=== PATIENT | female | born 1945 | race Caucasian/White ===

== ENCOUNTER 2019-02-07 12:54 | Inpatient (IN) | payer MEDICARE ==
[2019-02-07] MEDS ORDERED: SODIUM CHLORIDE 0.9% 1,000 ML IV STA (13:19)
[2019-02-07] MEDS ORDERED: ONDANSETRON 4 MG/2 ML VIAL IVP STA (13:19)
[2019-02-07] MEDS ORDERED: FAMOTIDINE 20 MG/2 ML VIAL IV STA (13:19)
--- NOTE | 2019-02-07 13:23 | ED ---
General Adult HPI - General Chief complaint: Recheck/Abnormal Lab/Rx Stated complaint: Vomiting and diarrhea Time Seen by Provider: 02/07/19 13:00 Source: patient, EMS, RN notes reviewed Mode of arrival: EMS Limitations: no limitations - History of Present Illness Initial comments: Patient is a pleasant 73-year-old female presenting to the emergency Department with complaints of vomiting and diarrhea. Onset of symptoms was close to week ago. Patient is having some more diarrhea than vomiting. Patient still feels somewhat nauseous however. No abdominal pain. Patient does have some generalized weakness and lightheadedness. Patient does feel more weak and lightheaded and somewhat short of breath with exertion. No chest pain. No leg pain or leg swelling. Patient had a low pulse ox by EMS and was placed on CPAP. Patient was seen by respiratory upon arrival and placed on BiPAP. Nursing states that patient did feel cold and had cold hands. Patient states she is no dyspnea at rest. Patient denies any dyspnea at this time. - Related Data Home Medications Medication Instructions Recorded Confirmed Cholecalciferol [Vitamin D3 (25 5,000 unit PO DAILY 02/07/19 02/07/19 Mcg = 1000 Iu)] Lisinopril-Hctz 20-25 mg 1 tab PO DAILY 02/07/19 02/07/19 [Zestoretic 20-25] Allergies Allergy/AdvReac Type Severity Reaction Status Date / Time Sulfa (Sulfonamide Allergy Rash/Hives Verified 02/07/19 12:56 Antibiotics) Review of Systems ROS Statement: Those systems with pertinent positive or pertinent negative responses have been documented in the HPI. ROS Other: All systems not noted in ROS Statement are negative. Constitutional: Denies: fever Eyes: Denies: eye pain ENT: Denies: ear pain Respiratory: Reports: as per HPI Cardiovascular: Denies: chest pain Endocrine: Reports: fatigue Gastrointestinal: Reports: nausea, vomiting, diarrhea. Denies: abdominal pain Genitourinary: Denies: dysuria Musculoskeletal: Denies: back pain Skin: Denies: rash Neurological: Denies: headache, confusion Past Medical History Past Medical History: Hypertension Additional Past Medical History / Comment(s): fungal infection feet History of Any Multi-Drug Resistant Organisms: None Reported Additional Past Surgical History / Comment(s): laparotomy d/t PID Past Anesthesia/Blood Transfusion Reactions: No Reported Reaction Past Psychological History: No Psychological Hx Reported Smoking Status: Never smoker Past Alcohol Use History: None Reported Past Drug Use History: None Reported - Past Family History Mother Family Medical History: Cancer Additional Family Medical History / Comment(s): brain stem tumor General Exam Limitations: no limitations General appearance: alert, in no apparent distress Head exam: Present: normocephalic Eye exam: Present: normal appearance, PERRL ENT exam: Present: normal oropharynx Neck exam: Present: normal inspection Respiratory exam: Present: normal lung sounds bilaterally Cardiovascular Exam: Present: regular rate, normal rhythm GI/Abdominal exam: Present: soft. Absent: tenderness Extremities exam: Present: normal inspection. Absent: pedal edema, calf tenderness Neurological exam: Present: alert Psychiatric exam: Present: normal affect, normal mood Skin exam: Present: normal color Course Vital Signs 02/07/19 02/07/19 02/07/19 12:56 13:20 13:59 Temperature 98.6 F 98.6 F Pulse Rate 92 82 Respiratory 20 20 Rate Blood Pressure 143/73 128/59 O2 Sat by Pulse 100 99 100 Oximetry EKG Findings - EKG Comments: EKG Findings:: EKG shows normal sinus rhythm at 82. TN 142. QRS 84. QT 376. QTc 439. Normal axis. Nonspecific ST-T change, consider early repolarization pericarditis or injury. Normal QRS. Medical Decision Making - Medical Decision Making Patient reevaluated and resting comfortably in bed. Pulse ox 100% on room air. Patient updated on results and plan. Case was discussed in detail with Dr. Jones, who will admit covering for Dr. ashby. - Lab Data Result diagrams: 02/07/19 13:35 02/07/19 13:35 Lab Results 02/07/19 02/07/19 02/07/19 Range/Units 13:35 13:35 13:35 WBC 10.8 H (3.8-10.6) k/uL RBC 5.50 H (3.80-5.40) m/uL Hgb 15.7 (11.4-16.0) gm/dL Hct 46.1 H (34.0-46.0) % MCV 83.9 (80.0-100.0) fL MCH 28.5 (25.0-35.0) pg MCHC 34.0 (31.0-37.0) g/dL RDW 12.5 (11.5-15.5) % Plt Count 380 (150-450) k/uL Neutrophils % 76 % Lymphocytes % 16 % Monocytes % 5 % Eosinophils % 1 % Basophils % 1 % Neutrophils # 8.3 H (1.3-7.7) k/uL Lymphocytes # 1.7 (1.0-4.8) k/uL Monocytes # 0.6 (0-1.0) k/uL Eosinophils # 0.1 (0-0.7) k/uL Basophils # 0.1 (0-0.2) k/uL PT (9.0-12.0) sec INR (<1.2) APTT (22.0-30.0) sec Sodium 138 (137-145) mmol/L Potassium 4.0 (3.5-5.1) mmol/L Chloride 100 (98-107) mmol/L Carbon Dioxide 18 L (22-30) mmol/L Anion Gap 20 mmol/L BUN 125 H* (7-17) mg/dL Creatinine 2.89 H (0.52-1.04) mg/dL Est GFR (CKD-EPI)AfAm 18 (>60 ml/min/1.73 sqM) Est GFR (CKD-EPI)NonAf 16 (>60 ml/min/1.73 sqM) Glucose 140 H (74-99) mg/dL Plasma Lactic Acid Yoel 3.0 H* (0.7-2.0) mmol/L Calcium 10.3 H (8.4-10.2) mg/dL Magnesium 3.2 H (1.6-2.3) mg/dL Total Bilirubin 0.9 (0.2-1.3) mg/dL AST 21 (14-36) U/L ALT 25 (9-52) U/L Alkaline Phosphatase 90 (38-126) U/L Creatine Kinase 33 (30-135) U/L Troponin I (0.000-0.034) ng/mL Total Protein 7.1 (6.3-8.2) g/dL Albumin 4.6 (3.5-5.0) g/dL 02/07/19 02/07/19 Range/Units 13:35 13:35 WBC (3.8-10.6) k/uL RBC (3.80-5.40) m/uL Hgb (11.4-16.0) gm/dL Hct (34.0-46.0) % MCV (80.0-100.0) fL MCH (25.0-35.0) pg MCHC (31.0-37.0) g/dL RDW (11.5-15.5) % Plt Count (150-450) k/uL Neutrophils % % Lymphocytes % % Monocytes % % Eosinophils % % Basophils % % Neutrophils # (1.3-7.7) k/uL Lymphocytes # (1.0-4.8) k/uL Monocytes # (0-1.0) k/uL Eosinophils # (0-0.7) k/uL Basophils # (0-0.2) k/uL PT 13.6 H (9.0-12.0) sec INR 1.3 H (<1.2) APTT 25.7 (22.0-30.0) sec Sodium (137-145) mmol/L Potassium (3.5-5.1) mmol/L Chloride (98-107) mmol/L Carbon Dioxide (22-30) mmol/L Anion Gap mmol/L BUN (7-17) mg/dL Creatinine (0.52-1.04) mg/dL Est GFR (CKD-EPI)AfAm (>60 ml/min/1.73 sqM) Est GFR (CKD-EPI)NonAf (>60 ml/min/1.73 sqM) Glucose (74-99) mg/dL Plasma Lactic Acid Yoel (0.7-2.0) mmol/L Calcium (8.4-10.2) mg/dL Magnesium (1.6-2.3) mg/dL Total Bilirubin (0.2-1.3) mg/dL AST (14-36) U/L ALT (9-52) U/L Alkaline Phosphatase (38-126) U/L Creatine Kinase (30-135) U/L Troponin I 0.015 (0.000-0.034) ng/mL Total Protein (6.3-8.2) g/dL Albumin (3.5-5.0) g/dL Disposition Clinical Impression: Dehydration Disposition: ADMITTED IP TO THIS HOSP Condition: Serious Is patient prescribed a controlled substance at d/c from ED?: No Referrals: Debbie Plaza MD [Primary Care Provider] - 1-2 days Decision Time: 15:21
[2019-02-07 14:12] LABS: Basophils # (A) 0.1 k/uL (0-0.2); Basophils % (A) 1 %; Eosinophils # (A) 0.1 k/uL (0-0.7); Eosinophils % (A) 1 %; HCT 46.1 % (34.0-46.0); HGB 15.7 gm/dL (11.4-16.0); Lymphocytes # (A) 1.7 k/uL (1.0-4.8); Lymphocytes % (A) 16 %; MCH 28.5 pg (25.0-35.0); MCV 83.9 fL (80.0-100.0); Mean Platelet Volume 7.3; Monocytes # (A) 0.6 k/uL (0-1.0); Monocytes % (A) 5 %; Neutrophils # (A) 8.3 k/uL (1.3-7.7); Neutrophils % (A) 76 %; Platelet Count 380 k/uL (150-450); RDW 12.5 % (11.5-15.5); WBC 10.8 k/uL (3.8-10.6)
[2019-02-07 14:16] LABS: INR 1.3 (<1.2); Partial Thromboplastin Time 25.7 sec (22.0-30.0); Prothrombin Time 13.6 sec (9.0-12.0)
--- NOTE | 2019-02-07 14:17 | XR ---
EXAMINATION TYPE: XR chest 2V DATE OF EXAM: 02/07/2019 COMPARISON: NONE HISTORY: Weakness and hypoxia. Shortness of breath. TECHNIQUE: Frontal and lateral views of the chest are obtained. FINDINGS: There is chronic parenchymal changes bilaterally without suspicious focal air space opacit y, pleural effusion, or pneumothorax seen. The cardiac silhouette size is within normal limits. Th e osseous structures are demineralized. IMPRESSION: No suspicious acute pulmonary process.
[2019-02-07 14:21] LABS: Albumin 4.6 g/dL (3.5-5.0); Calcium 10.3 mg/dL (8.4-10.2); Magnesium 3.2 mg/dL (1.6-2.3); Total Bilirubin 0.9 mg/dL (0.2-1.3); Total Protein 7.1 g/dL (6.3-8.2)
[2019-02-07] MEDS ORDERED: ONDANSETRON 4 MG/2 ML VIAL IVP PRN (15:21)
[2019-02-07] MEDS ORDERED: NALOXONE 0.4 MG/ML 1 ML VIAL IV PRN (15:21)
[2019-02-07] MEDS: SODIUM CHLORIDE 0.9% 1,000 ML IV SCH (15:51)
--- NOTE | 2019-02-07 15:52 | P.HPIM ---
History of Present Illness H&P Date: 02/07/19 Chief Complaint: dehydration, nausea vomiting and diarrhea This is a 73-year-old female patient of Dr. Plaza. Patient presented with nausea vomiting diarrhea for 1 week. Patient reports that she has been able to keep minimal fluid injuring 10 over the past week. Patient reports that he does feel more weak and lightheaded than normal. Patient reports she is concerned about the remaining that his recall she has been eating large amounts over the past few months. Patient also states she saw some bright red blood in her stool. Patient does state she has hemorrhoids is having multiple loose stools since resolved. Patient does have a past medical history of hypertension. Patient denies fevers. Patient denies any alcohol use. Patient denies any other significant medical history. Patient reports last colonoscopy was in 2015 and showed sigmoid diverticulosis with no evidence of acute diverticulitis strictures or polyps or cancer. Chest x-ray completed in ER showing no suspicious acute pulmonary process. Creatinine elevated at 2.89 and bun 125. Lactic acid 3.0. Patient's blood pressure medication currently on hold. Normal saline at 75. Amylase and lipase ordered. Stool for C. diff ordered. Stool culture ordered. Repeat labs ordered in a.m. at this time patient reports improvement with nausea vomiting and diarrhea. Patient denies chest pain or shortness of breath. Patient denies any urinary burning or frequency Review of Systems Please refer to HPI otherwise unremarkable Past Medical History Past Medical History: Hypertension Additional Past Medical History / Comment(s): fungal infection feet History of Any Multi-Drug Resistant Organisms: None Reported Additional Past Surgical History / Comment(s): laparotomy d/t PID Past Anesthesia/Blood Transfusion Reactions: No Reported Reaction Past Psychological History: No Psychological Hx Reported Smoking Status: Never smoker Past Alcohol Use History: None Reported Past Drug Use History: None Reported - Past Family History Mother Family Medical History: Cancer Additional Family Medical History / Comment(s): brain stem tumor Medications and Allergies Home Medications Medication Instructions Recorded Confirmed Type Cholecalciferol [Vitamin D3 (25 5,000 unit PO DAILY 02/07/19 02/07/19 History Mcg = 1000 Iu)] Lisinopril-Hctz 20-25 mg 1 tab PO DAILY 02/07/19 02/07/19 History [Zestoretic 20-25] Allergies Allergy/AdvReac Type Severity Reaction Status Date / Time Sulfa (Sulfonamide Allergy Rash/Hives Verified 02/07/19 12:56 Antibiotics) Physical Exam Vitals: Vital Signs Temp Pulse Resp BP Pulse Ox 02/07/19 15:19 82 18 124/74 97 02/07/19 13:59 98.6 F 82 20 128/59 100 02/07/19 13:20 99 02/07/19 12:56 98.6 F 92 20 143/73 100 Intake and Output 02/07/19 02/07/19 02/07/19 06:59 14:59 22:59 Other: Weight 53.524 kg Head normocephalic Neck supple Lungs clear to auscultation bilaterally no wheezing or crackles Heart regular rate and rhythm S1-S2, no rub or gallop Abdomen is soft nontender nondistended positive bowel sounds no hepatosplenomegaly Extremities no edema Neuro alert and orientated to 3 Results CBC & Chem 7: 02/07/19 13:35 02/07/19 13:35 Labs: Abnormal Lab Results - Last 24 Hours (Table) 02/07/19 02/07/19 02/07/19 Range/Units 13:35 13:35 13:35 WBC 10.8 H (3.8-10.6) k/uL RBC 5.50 H (3.80-5.40) m/uL Hct 46.1 H (34.0-46.0) % Neutrophils # 8.3 H (1.3-7.7) k/uL PT (9.0-12.0) sec INR (<1.2) Carbon Dioxide 18 L (22-30) mmol/L BUN 125 H* (7-17) mg/dL Creatinine 2.89 H (0.52-1.04) mg/dL Glucose 140 H (74-99) mg/dL Plasma Lactic Acid Yoel 3.0 H* (0.7-2.0) mmol/L Calcium 10.3 H (8.4-10.2) mg/dL Magnesium 3.2 H (1.6-2.3) mg/dL 02/07/19 Range/Units 13:35 WBC (3.8-10.6) k/uL RBC (3.80-5.40) m/uL Hct (34.0-46.0) % Neutrophils # (1.3-7.7) k/uL PT 13.6 H (9.0-12.0) sec INR 1.3 H (<1.2) Carbon Dioxide (22-30) mmol/L BUN (7-17) mg/dL Creatinine (0.52-1.04) mg/dL Glucose (74-99) mg/dL Plasma Lactic Acid Yoel (0.7-2.0) mmol/L Calcium (8.4-10.2) mg/dL Magnesium (1.6-2.3) mg/dL Assessment and Plan Assessment: 1. Gastroenteritis with nausea vomiting and diarrhea. Amylase and lipase ordered. Stool for C. diff ordered. Stool cultures ordered. Dr. Chávez per infectious disease has been consulted 2. Acute kidney injury secondary to dehydration. Creatinine elevated 2.89 and bun 125. Continue normal saline at 75 3. Elevated lactic acid likely secondary to dehydration. LA elevated at 3.0. She received 1 L bolus normal saline at 75. Lactic acid has been ordered per protocol 4. History of essential hypertension. Patient home medication includes lisinopril hydrochlorothiazide currently on hold due to acute kidney injury will continue to monitor DVT prophylaxis heparin. GI prophylaxis Protonix Time with Patient: Greater than 30 (Greater than 60% of the total time spent in counseling and coordination of care. I performed an examination of the patient and discussed their management with the Nurse Practitioner. I have reviewed the Nurse Practitioner's notes and agree with the documented findings and plan of care)
[2019-02-07 17:27] LABS: Appearance,Urine Clear (Clear); Bacteria,Urine Occasional /hpf; Bilirubin,Urine Negative (Negative); Blood,Urine Negative (Negative); Color,Urine Light Yellow; Glucose,Urine (UA) Negative (Negative); Hyaline Casts,Urine 1 /lpf (0-2); Ketones,Urine Negative (Negative); Leukocyte Esterase,Urine Trace (Negative); Mucus,Urine Rare /hpf; Nitrite,Urine Positive (Negative); Protein,Urine Negative (Negative); RBC,Urine 1 /hpf (0-5); Specific Gravity,Urine 1.014 (1.001-1.035); Squamous Epithelial Cell,Urine <1 /hpf (0-4); Urobilinogen,Urine <2.0 mg/dL (<2.0); WBC,Urine 8 /hpf (0-5)
[2019-02-07] MEDS: HEPARIN SODIUM,PORCINE 5,000 UNIT/ML 1 ML VIAL SQ SCH (20:36)
[2019-02-08] MEDS: SODIUM CHLORIDE 0.9% 1,000 ML IV SCH ×2 (04:37→16:08)
[2019-02-08 07:33] LABS: Albumin 3.3 g/dL (3.5-5.0); Potassium 3.4 mmol/L (3.5-5.1); Total Bilirubin 0.6 mg/dL (0.2-1.3); Total Protein 5.5 g/dL (6.3-8.2)
[2019-02-08] MEDS: PANTOPRAZOLE 40 MG/10 ML VIAL IV SCH (08:00)
[2019-02-08] MEDS: HEPARIN SODIUM,PORCINE 5,000 UNIT/ML 1 ML VIAL SQ SCH ×2 (08:00→20:10)
[2019-02-08 08:04] LABS: Basophils % (A) 1 %; Eosinophils # (A) 0.2 k/uL (0-0.7); Eosinophils % (A) 3 %; HCT 37.9 % (34.0-46.0); HGB 12.9 gm/dL (11.4-16.0); Lymphocytes # (A) 1.7 k/uL (1.0-4.8); Lymphocytes % (A) 25 %; MCH 29.1 pg (25.0-35.0); MCV 85.7 fL (80.0-100.0); Mean Platelet Volume 6.6; Monocytes # (A) 0.4 k/uL (0-1.0); Monocytes % (A) 6 %; Neutrophils # (A) 4.4 k/uL (1.3-7.7); Neutrophils % (A) 64 %; Platelet Count 261 k/uL (150-450); RBC 4.42 m/uL (3.80-5.40); RDW 12.6 % (11.5-15.5); WBC 6.9 k/uL (3.8-10.6)
[2019-02-08] MEDS ORDERED: Potassium Replacement Protocol 1 EACH MISC MISCELLANE PRN (08:31)
--- NOTE | 2019-02-08 08:36 | CDI ---
Documentation Clarification Form Date: 02/08/2019 8:18:00 AM From: Neyda Cowan RN CCDS Admit Date: 02/07/2019 3:21:00 PM Patient Name: Phong Artis Visit Number: [id number] Discharge Date: ATTENTION: The Clinical Documentation Specialists (CDI) and [facility] Coding Staff appreciate your assistance in clarifying documentation. Please respond to the clarification below the line at the bottom and electronically sign. The CDI & [facility] Coding staff will review the response and follow-up if needed. Please note: Queries are made part of the Legal Health Record. If you have any questions, please contact the author of this message via ITS. Dr. Richard Jones The Elevated lactic acid likely secondary to dehydration Documented in the H & P Past medical history/Risk Factors: 73-year-old female presents to the ED for diarrhea, vomiting, weakness, light headedness and short of breath with exertion. Clinical Indicators: Lactic acid 02/07 - 3.0; 02/07 - 2.1; 02/07 1.0 Vital signs: 143/73 92 98.6 20 100% Bipap Treatment:02/07 0.9ns 1 L bolus then at 75 cc/hr; Monitoring of Lactic acid In your professional opinion, can you please clarify if the above clinical indicators and treatment signify any of the following? Lactic Acidosis Metabolic Acidosis Unable to determine Other, please specify (Last Revision: December 2016) Lactic acidosis MTDD
[2019-02-08] MEDS: POTASSIUM CHLORIDE ER 20 MEQ TAB.ER PO SCH ×2 (08:59→10:11)
--- NOTE | 2019-02-08 11:13 | P.PN ---
Subjective Progress Note Date: 02/08/19 This is a 73-year-old female patient of Dr. Plaza. Patient presented with nausea vomiting diarrhea for 1 week. Patient reports that she has been able to keep minimal fluid injuring 10 over the past week. Patient reports that he does feel more weak and lightheaded than normal. Patient reports she is concerned about the remaining that his recall she has been eating large amounts over the past few months. Patient also states she saw some bright red blood in her stool. Patient does state she has hemorrhoids is having multiple loose stools since resolved. Patient does have a past medical history of hypertension. Patient denies fevers. Patient denies any alcohol use. Patient denies any other significant medical history. Patient reports last colonoscopy was in 2015 and showed sigmoid diverticulosis with no evidence of acute diverticulitis strictures or polyps or cancer. Chest x-ray completed in ER showing no suspicious acute pulmonary process. Creatinine elevated at 2.89 and bun 125. Lactic acid 3.0. Patient's blood pressure medication currently on hold. Normal saline at 75. Amylase and lipase ordered. Stool for C. diff ordered. Stool culture ordered. Repeat labs ordered in a.m. at this time patient reports improvement with nausea vomiting and diarrhea. Patient denies chest pain or shortness of breath. Patient denies any urinary burning or frequency On 02/08/2018 patient is resting comfortably in her bed. Patient is in no acute distress. Patient states that she feels much better today. Patient has been afebrile overnight. Patient has had no nausea, vomiting, diarrhea. Last bowel movement was yesterday patient reports a very small amount. Lactate 0.6. WBC 6.9 down from 10.8. UA completed possibly suspicious for UTI, though patient is denying any symptoms. Will send urine culture. She was tolerating regular diet. Amylase 121, lipase 772, potentially due to dehydration. Will repeat. Creatinine on admission 2.89, today 2.03. She denies any chest pain or shortness of breath. Patient denies any urinary burning or frequency. Objective - Vital Signs Vital signs: Vital Signs Temp 98.2 F 02/08/19 06:12 Pulse 68 02/08/19 06:12 Resp 18 02/08/19 06:12 BP 132/75 02/08/19 06:12 Pulse Ox 100 02/08/19 06:12 Intake & Output 02/07/19 02/08/19 02/08/19 18:59 06:59 18:59 Intake Total 200 1080 200 Balance 200 1080 200 Weight 53.524 kg Intake: Intake, IV Titration 600 Amount Sodium Chloride 0.9% 1, 600 000 ml @ 75 mls/hr IV . [id number] [id number] Rx#:[id number] Oral 200 480 200 Other: # Voids 3 - Exam Head normocephalic Neck supple Lungs clear to auscultation bilaterally no wheezing or crackles Heart regular rate and rhythm S1-S2, no rub or gallop Abdomen is soft nontender nondistended positive bowel sounds no hepatosplenomegaly Extremities no edema Neuro alert and orientated to 3 - Labs CBC & Chem 7: 02/08/19 06:56 02/08/19 06:56 Labs: Abnormal Lab Results - Last 24 Hours (Table) 02/07/19 02/07/19 02/07/19 Range/Units 13:35 13:35 13:35 WBC 10.8 H (3.8-10.6) k/uL RBC 5.50 H (3.80-5.40) m/uL Hct 46.1 H (34.0-46.0) % Neutrophils # 8.3 H (1.3-7.7) k/uL PT (9.0-12.0) sec INR (<1.2) Potassium (3.5-5.1) mmol/L Chloride (98-107) mmol/L Carbon Dioxide 18 L (22-30) mmol/L BUN 125 H* (7-17) mg/dL Creatinine 2.89 H (0.52-1.04) mg/dL Glucose 140 H (74-99) mg/dL Plasma Lactic Acid Yoel 3.0 H* (0.7-2.0) mmol/L Calcium 10.3 H (8.4-10.2) mg/dL Magnesium 3.2 H (1.6-2.3) mg/dL Total Protein (6.3-8.2) g/dL Albumin (3.5-5.0) g/dL Amylase (30-110) U/L Lipase (23-300) U/L Urine Nitrite (Negative) Ur Leukocyte Esterase (Negative) Urine WBC (0-5) /hpf Urine Bacteria (None) /hpf Urine Mucus (None) /hpf 02/07/19 02/07/19 02/07/19 Range/Units 13:35 13:35 17:00 WBC (3.8-10.6) k/uL RBC (3.80-5.40) m/uL Hct (34.0-46.0) % Neutrophils # (1.3-7.7) k/uL PT 13.6 H (9.0-12.0) sec INR 1.3 H (<1.2) Potassium (3.5-5.1) mmol/L Chloride (98-107) mmol/L Carbon Dioxide (22-30) mmol/L BUN (7-17) mg/dL Creatinine (0.52-1.04) mg/dL Glucose (74-99) mg/dL Plasma Lactic Acid Yoel (0.7-2.0) mmol/L Calcium (8.4-10.2) mg/dL Magnesium (1.6-2.3) mg/dL Total Protein (6.3-8.2) g/dL Albumin (3.5-5.0) g/dL Amylase (30-110) U/L Lipase 772 H (23-300) U/L Urine Nitrite Positive H (Negative) Ur Leukocyte Esterase Trace H (Negative) Urine WBC 8 H (0-5) /hpf Urine Bacteria Occasional H (None) /hpf Urine Mucus Rare H (None) /hpf 02/07/19 02/08/19 02/08/19 Range/Units 18:14 06:56 06:56 WBC (3.8-10.6) k/uL RBC (3.80-5.40) m/uL Hct (34.0-46.0) % Neutrophils # (1.3-7.7) k/uL PT (9.0-12.0) sec INR (<1.2) Potassium 3.4 L (3.5-5.1) mmol/L Chloride 109 H (98-107) mmol/L Carbon Dioxide (22-30) mmol/L BUN 85 H (7-17) mg/dL Creatinine 2.03 H (0.52-1.04) mg/dL Glucose 101 H (74-99) mg/dL Plasma Lactic Acid Yoel 2.1 H* (0.7-2.0) mmol/L Calcium (8.4-10.2) mg/dL Magnesium (1.6-2.3) mg/dL Total Protein 5.5 L (6.3-8.2) g/dL Albumin 3.3 L (3.5-5.0) g/dL Amylase 121 H (30-110) U/L Lipase (23-300) U/L Urine Nitrite (Negative) Ur Leukocyte Esterase (Negative) Urine WBC (0-5) /hpf Urine Bacteria (None) /hpf Urine Mucus (None) /hpf 02/08/19 Range/Units 06:56 WBC (3.8-10.6) k/uL RBC (3.80-5.40) m/uL Hct (34.0-46.0) % Neutrophils # (1.3-7.7) k/uL PT (9.0-12.0) sec INR (<1.2) Potassium (3.5-5.1) mmol/L Chloride (98-107) mmol/L Carbon Dioxide (22-30) mmol/L BUN (7-17) mg/dL Creatinine (0.52-1.04) mg/dL Glucose (74-99) mg/dL Plasma Lactic Acid Yoel 0.6 L (0.7-2.0) mmol/L Calcium (8.4-10.2) mg/dL Magnesium (1.6-2.3) mg/dL Total Protein (6.3-8.2) g/dL Albumin (3.5-5.0) g/dL Amylase (30-110) U/L Lipase (23-300) U/L Urine Nitrite (Negative) Ur Leukocyte Esterase (Negative) Urine WBC (0-5) /hpf Urine Bacteria (None) /hpf Urine Mucus (None) /hpf Assessment and Plan Assessment: 1. Gastroenteritis with nausea vomiting and diarrhea. Amylase and lipase ordered. Stool for C. diff ordered. Stool cultures ordered. Dr. Chávez per infectious disease has been consulted 2. Acute kidney injury secondary to dehydration. Creatinine elevated on admission 2.89 and bun 125. Today Creatinine 2.03, BUN 85. Continue normal saline at 75 3. Elevated lactic acid likely secondary to dehydration. LA elevated at 3.0. She received 1 L bolus normal saline at 75. Lactic acid has been ordered per protocol. Lactate 0.6, resolved. 4. History of essential hypertension. Patient home medication includes lisinopril hydrochlorothiazide currently on hold due to acute kidney injury will continue to monitor. 5. Elevated amylase and lipase. Amylase 121, lipase 772. Likely secondary to dehydration, will repeat labs. 6. Hypokalemia. Potassium 3.4, patient is on replacement protocol will replace and recheck lab. DVT prophylaxis heparin. GI prophylaxis Protonix & pepcid. I performed an examination of the patient and discussed their management with the Nurse Practitioner. I have reviewed the Nurse Practitioner's notes and agree with the documented findings and plan of care Time with Patient: Greater than 30
--- NOTE | 2019-02-08 22:29 | P.CONS ---
History of Present Illness - Reason for Consult Consult date: 02/08/19 Gastroenteritis Requesting physician: Richard Jones - Chief Complaint Vomiting and diarrhea 1 week - History of Present Illness Patient is a 73-year-old female who was brought into the ER by the EMS for the patient complaining of generalized weakness no energy and having nausea vomiting and diarrhea for the last 1 week patient initial symptoms started with loose stools the patient did have multiple loose stools per day and started having the vomiting was unable to keep anything down. Denies having hematemesis or abdominal pain and no fever patient did not recall if she has been exposed to an antibiotic in the recent past or anybody is sick at home patient tried some home remedies without any improvement EMS was called and the patient was brought in to [facility] ER patient on admission Hospital has been afebrile her white count has been normal she was noticed to have it evaluated BUN Of 125 with a creatinine 2.89 patient has been started on IV fluid stool studies has been requested unfortunately not collected yet infections was consulted for further recommendation regarding need for antibiotic therapy Review of Systems Positive point has been mentioned in the HPI rest of the systems are negative Past Medical History Past Medical History: Hypertension Additional Past Medical History / Comment(s): fungal infection feet 2017 History of Any Multi-Drug Resistant Organisms: None Reported Additional Past Surgical History / Comment(s): laparotomy d/t PID 1990 Past Anesthesia/Blood Transfusion Reactions: No Reported Reaction Past Psychological History: No Psychological Hx Reported Smoking Status: Never smoker Past Alcohol Use History: None Reported Past Drug Use History: None Reported - Past Family History Mother Family Medical History: Cancer Additional Family Medical History / Comment(s): brain stem tumor Medications and Allergies Home Medications Medication Instructions Recorded Confirmed Type Cholecalciferol [Vitamin D3 (25 5,000 unit PO DAILY 02/07/19 02/07/19 History Mcg = 1000 Iu)] Lisinopril-Hctz 20-25 mg 1 tab PO DAILY 02/07/19 02/07/19 History [Zestoretic 20-25] Allergies Allergy/AdvReac Type Severity Reaction Status Date / Time Sulfa (Sulfonamide Allergy Rash/Hives Verified 02/07/19 12:56 Antibiotics) Physical Exam Vitals: Vital Signs Temp Pulse Pulse Resp BP BP Pulse Ox 02/08/19 06:12 98.2 F 68 18 132/75 100 02/08/19 01:40 98.4 F 91 148/70 97 02/07/19 23:32 18 02/07/19 19:15 98.3 F 88 17 130/69 98 02/07/19 17:12 97.9 F 88 14 126/67 97 02/07/19 16:40 98.8 F 99 18 127/52 98 02/07/19 15:19 82 18 124/74 97 02/07/19 13:59 98.6 F 82 20 128/59 100 02/07/19 13:20 99 02/07/19 12:56 98.6 F 92 20 143/73 100 Intake and Output 02/07/19 02/08/19 02/08/19 22:59 06:59 14:59 Intake Total 200 1080 200 Balance 200 1080 200 Intake: Intake, IV Titration 600 Amount Sodium Chloride 0.9% 1, 600 000 ml @ 75 mls/hr IV . [id number] BIJAL Rx#:[id number] Oral 200 480 200 Other: # Voids 1 3 Weight 53.524 kg GENERAL DESCRIPTION: An elderly female lying in bed, no distress. No tachypnea or accessory muscle of respiration use. HEENT: Shows Pallor , no scleral icterus. Oral mucous membrane is dry. No pharyngeal erythema or thrush NECK: Trachea central, no thyromegaly. LUNGS: Unlabored breathing. Clear to auscultation anteriorly. No wheeze or crackle. HEART: S1, S2, regular rate and rhythm. No loud murmur ABDOMEN: Soft, no tenderness , guarding or rigidity, no organomegaly EXTREMITIES: No edema of feet. SKIN: No rash, no masses palpable. NEUROLOGICAL: The patient is awake, alert, oriented x3, mood and affect normal. Results CBC & Chem 7: 02/08/19 06:56 02/08/19 06:56 Labs: Abnormal Lab Results - Last 24 Hours (Table) 02/07/19 02/07/19 02/07/19 Range/Units 13:35 13:35 13:35 WBC 10.8 H (3.8-10.6) k/uL RBC 5.50 H (3.80-5.40) m/uL Hct 46.1 H (34.0-46.0) % Neutrophils # 8.3 H (1.3-7.7) k/uL PT (9.0-12.0) sec INR (<1.2) Potassium (3.5-5.1) mmol/L Chloride (98-107) mmol/L Carbon Dioxide 18 L (22-30) mmol/L BUN 125 H* (7-17) mg/dL Creatinine 2.89 H (0.52-1.04) mg/dL Glucose 140 H (74-99) mg/dL Plasma Lactic Acid Yoel 3.0 H* (0.7-2.0) mmol/L Calcium 10.3 H (8.4-10.2) mg/dL Magnesium 3.2 H (1.6-2.3) mg/dL Total Protein (6.3-8.2) g/dL Albumin (3.5-5.0) g/dL Amylase (30-110) U/L Lipase (23-300) U/L Urine Nitrite (Negative) Ur Leukocyte Esterase (Negative) Urine WBC (0-5) /hpf Urine Bacteria (None) /hpf Urine Mucus (None) /hpf 02/07/19 02/07/19 02/07/19 Range/Units 13:35 13:35 17:00 WBC (3.8-10.6) k/uL RBC (3.80-5.40) m/uL Hct (34.0-46.0) % Neutrophils # (1.3-7.7) k/uL PT 13.6 H (9.0-12.0) sec INR 1.3 H (<1.2) Potassium (3.5-5.1) mmol/L Chloride (98-107) mmol/L Carbon Dioxide (22-30) mmol/L BUN (7-17) mg/dL Creatinine (0.52-1.04) mg/dL Glucose (74-99) mg/dL Plasma Lactic Acid Yoel (0.7-2.0) mmol/L Calcium (8.4-10.2) mg/dL Magnesium (1.6-2.3) mg/dL Total Protein (6.3-8.2) g/dL Albumin (3.5-5.0) g/dL Amylase (30-110) U/L Lipase 772 H (23-300) U/L Urine Nitrite Positive H (Negative) Ur Leukocyte Esterase Trace H (Negative) Urine WBC 8 H (0-5) /hpf Urine Bacteria Occasional H (None) /hpf Urine Mucus Rare H (None) /hpf 02/07/19 02/08/19 02/08/19 Range/Units 18:14 06:56 06:56 WBC (3.8-10.6) k/uL RBC (3.80-5.40) m/uL Hct (34.0-46.0) % Neutrophils # (1.3-7.7) k/uL PT (9.0-12.0) sec INR (<1.2) Potassium 3.4 L (3.5-5.1) mmol/L Chloride 109 H (98-107) mmol/L Carbon Dioxide (22-30) mmol/L BUN 85 H (7-17) mg/dL Creatinine 2.03 H (0.52-1.04) mg/dL Glucose 101 H (74-99) mg/dL Plasma Lactic Acid Yoel 2.1 H* (0.7-2.0) mmol/L Calcium (8.4-10.2) mg/dL Magnesium (1.6-2.3) mg/dL Total Protein 5.5 L (6.3-8.2) g/dL Albumin 3.3 L (3.5-5.0) g/dL Amylase 121 H (30-110) U/L Lipase (23-300) U/L Urine Nitrite (Negative) Ur Leukocyte Esterase (Negative) Urine WBC (0-5) /hpf Urine Bacteria (None) /hpf Urine Mucus (None) /hpf 02/08/19 Range/Units 06:56 WBC (3.8-10.6) k/uL RBC (3.80-5.40) m/uL Hct (34.0-46.0) % Neutrophils # (1.3-7.7) k/uL PT (9.0-12.0) sec INR (<1.2) Potassium (3.5-5.1) mmol/L Chloride (98-107) mmol/L Carbon Dioxide (22-30) mmol/L BUN (7-17) mg/dL Creatinine (0.52-1.04) mg/dL Glucose (74-99) mg/dL Plasma Lactic Acid Yoel 0.6 L (0.7-2.0) mmol/L Calcium (8.4-10.2) mg/dL Magnesium (1.6-2.3) mg/dL Total Protein (6.3-8.2) g/dL Albumin (3.5-5.0) g/dL Amylase (30-110) U/L Lipase (23-300) U/L Urine Nitrite (Negative) Ur Leukocyte Esterase (Negative) Urine WBC (0-5) /hpf Urine Bacteria (None) /hpf Urine Mucus (None) /hpf Assessment and Plan Assessment: 1-patient presented to the hospital with acute vomiting and diarrhea has been going on for almost a week with associated dehydration and this patient currentl y with no fever or elevated white count question of viral etiology clinical suspicion for underlying bacterial infection or C. diff colitis in this patient who has not been exposed to any antibiotics in the recent past (1) Gastroenteritis Current Visit: Yes Status: Acute Code(s): K52.9 - NONINFECTIVE GASTRO ENTERITIS AND COLITIS, UNSPECIFIED SNOMED Code(s): 36683748 Plan: 1-we will check a stool for C. diff and stool cultures 2-we'll add Questran for symptomatic relief 3-hold on any systemic antibiotic therapy We will follow on clinical condition and cultures to further adjust medication if needed Thank you for this consultation will follow this patient with you
[2019-02-09 08:00] LABS: Basophils # (A) 0.1 k/uL (0-0.2); Basophils % (A) 1 %; Eosinophils # (A) 0.2 k/uL (0-0.7); Eosinophils % (A) 2 %; HCT 35.1 % (34.0-46.0); HGB 11.7 gm/dL (11.4-16.0); Lymphocytes # (A) 1.8 k/uL (1.0-4.8); Lymphocytes % (A) 24 %; MCH 28.4 pg (25.0-35.0); MCHC 33.4 g/dL (31.0-37.0); Mean Platelet Volume 7.3; Monocytes # (A) 0.5 k/uL (0-1.0); Monocytes % (A) 7 %; Neutrophils % (A) 65 %; Platelet Count 232 k/uL (150-450); RBC 4.12 m/uL (3.80-5.40); RDW 12.6 % (11.5-15.5); WBC 7.6 k/uL (3.8-10.6)
--- NOTE | 2019-02-09 08:16 | US ---
EXAMINATION TYPE: US abdomen complete DATE OF EXAM: 02/09/2019 COMPARISON: NONE CLINICAL HISTORY: Elevated amylase, lipase. N/V. Difficult exam due to overlying bowel gas EXAM MEASUREMENTS: Liver Length: 11.9 cm Gallbladder Wall: 0.2 cm CBD: 0.4 cm Spleen: 8.6 cm Right Kidney: 9.2 x 4.3 x 4.1 cm Left Kidney: 9.8 x 3.7 x 3.9 cm Pancreas: Body and tail obscured by bowel gas Liver: There is increased echogenicity of the hepatic parenchyma with diminished visualization of th e portal triads most commonly relating to hepatic steatosis and limiting evaluation for underlying he patic masses. Gallbladder: wnl Evidence for sonographic Melendez's sign: No CBD: wnl as visualized Spleen: wnl Right Kidney: No hydronephrosis or masses seen Left Kidney: No hydronephrosis or masses seen Upper IVC: wnl Abd Aorta: Limited due to bowel gas. Atherosclerotic changes visualized The liver is heterogeneous. The intrahepatic portion of the IVC and proximal abdominal aorta are wit hin normal limits. There is no evidence of cholelithiasis. Common bile duct is unremarkable. The v isualized portions of the pancreas are homogenous. The spleen is unremarkable. Kidneys are symmetri c and free of hydronephrosis. No renal lesions are seen. IMPRESSION: 1. Sonographic findings most commonly related to hepatic steatosis. Correlate with liver function jazz ts. 2. Pancreas is only partially visualized in this patient with elevated amylase and lipase. CT abdomen w con could assess for necrotizing pancreatitis or sequela of acute pancreatitis. 3. Limited visualization of the atherosclerotic abdominal aorta.
[2019-02-09 08:17] LABS: Albumin 3.2 g/dL (3.5-5.0); Calcium 9.2 mg/dL (8.4-10.2); Potassium 3.8 mmol/L (3.5-5.1); Total Bilirubin 0.5 mg/dL (0.2-1.3); Total Protein 5.4 g/dL (6.3-8.2)
[2019-02-09] MEDS: SODIUM CHLORIDE 0.9% 1,000 ML IV SCH ×2 (08:47→21:33)
[2019-02-09] MEDS: HEPARIN SODIUM,PORCINE 5,000 UNIT/ML 1 ML VIAL SQ SCH (08:47)
[2019-02-09] MEDS: PANTOPRAZOLE 40 MG/10 ML VIAL IV SCH (08:48)
[2019-02-09] MEDS: CHOLESTYRAMINE (WITH SUGAR) 4 GM PACKET PO SCH ×2 (08:48→17:05)
--- NOTE | 2019-02-09 10:57 | P.DS ---
Providers Date of admission: 02/07/19 15:21 Expected date of discharge: 02/09/19 Attending physician: Richard Jones Consults: 02/07/19 15:47 Consult Physician Routine Consulting Provider: Rodger Chávez Consult Reason/Comments: Gastroenteritis Do you want consulting provider notified?: Yes Primary care physician: Debbie Plaza [facility] Course: Hospital course 1. Gastroenteritis with nausea vomiting and diarrhea. Amylase and lipase ordered. Stool for C. diff ordered. Stool cultures ordered. Stool sample unable to be obtained, sample produced was too small and patient has not had another BM. Dr. Chávez infectious disease has been consulted. Per ID, will hold any systemic antibiotic therapy. Question was recommended for symptomatic relief however patient was unable to tolerate. 2. Acute kidney injury secondary to dehydration. Creatinine elevated on admission 2.89 and bun 125. Today Creatinine 1.44 and BUN 41. Will order repeat CMP in 2 days. 3. Elevated lactic acid likely secondary to dehydration. LA elevated at 3.0. She received 1 L bolus normal saline at 75. Lactic acid has been ordered per protocol. Lactate 0.6, resolved. 4. History of essential hypertension. Patient home medication includes lisinopril hydrochlorothiazide currently on hold due to acute kidney injury will continue to monitor. Resume upon discharge 5. Elevated amylase and lipase. Amylase 121, lipase 772. Likely secondary to dehydration, will repeat labs. Repeat amylase was 93 and lipase was 393. Abdominal ultrasound was completed, findings most commonly related to hepatic steatosis. Pancreas is only partially visualized, would need a CT with contrast to assess for further pancreatitis Amylase and lipase are trending down, recommend close follow-up outpatient. 6. Hypokalemia. Potassium 3.4, patient is on replacement protocol. Acid 3.8 today, resolved. Discharge Summary This is a 73-year-old female patient of Dr. Plaza. Patient presented with nausea vomiting diarrhea for 1 week. Patient reports that she has been able to keep minimal fluid injuring 10 over the past week. Patient reports that he does feel more weak and lightheaded than normal. Patient reports she is concerned about the remaining that his recall she has been eating large amounts over the past few months. Patient also states she saw some bright red blood in her stool. Patient does state she has hemorrhoids is having multiple loose stools since resolved. Patient does have a past medical history of hypertension. Patient denies fevers. Patient denies any alcohol use. Patient denies any other significant medical history. Patient reports last colonoscopy was in 2016 and showed sigmoid diverticulosis with no evidence of acute diverticulitis strictures or polyps or cancer. Chest x-ray completed in ER showing no suspicious acute pulmonary process. Creatinine elevated at 2.89 and bun 125. Lactic acid 3.0. Patient's blood pressure medication currently on hold. Normal saline at 75. Amylase and lipase ordered. Stool for C. diff ordered. Stool culture ordered. Repeat labs ordered in a.m. at this time patient reports improvement with nausea vomiting and diarrhea. Patient denies chest pain or shortness of breath. Patient denies any urinary burning or frequency On 02/08/2019 patient is resting comfortably in her bed. Patient is in no acute distress. Patient states that she feels much better today. Patient has been afebrile overnight. Patient has had no nausea, vomiting, diarrhea. Last bowel movement was yesterday patient reports a very small amount. Lactate 0.6. WBC 7.6 down from 10.8. UA completed possibly suspicious for UTI, though patient is denying any symptoms. Will send urine culture. She was tolerating regular diet. Amylase 121, lipase 772, potentially due to dehydration. Will repeat. Creatinine on admission 2.89, today 2.03. On 02/09/2019 patient states that she is very uncomfortable in the bed and she is ready to go home. Overall she feels much better. Patient has had no nausea vomiting or diarrhea. Per ID,Questran was ordered for symptomatic relief however patient was unable to tolerate. She is tolerating a regular diet. Last bowel movement was yesterday. She denies any chest pain or shortness of breath. Patient denies any urinary burning or frequency. Home blood pressure medications. Patient educated to increase hydration recommending close follow- up outpatient in regards amylase and lipase levels. CMP in 2 days. I performed an examination of the patient and discussed their management with the Nurse Practitioner. I have reviewed the Nurse Practitioner's notes and agree with the documented findings and plan of care Patient Condition at Discharge: Stable Plan - Discharge Summary Discharge Rx Participant: Yes New Discharge Prescriptions: No Action Lisinopril-Hctz 20-25 mg [Zestoretic 20-25] 1 tab PO DAILY Cholecalciferol [Vitamin D3 (25 Mcg = 1000 Iu)] 5,000 unit PO DAILY Discharge Medication List Cholecalciferol [Vitamin D3 (25 Mcg = 1000 Iu)] 5,000 unit PO DAILY 02/07/19 [History] Lisinopril-Hctz 20-25 mg [Zestoretic 20-25] 1 tab PO DAILY 02/07/19 [History] Follow up Appointment(s)/Referral(s): Debbie Plaza MD [Primary Care Provider] - 1-2 days
--- NOTE | 2019-02-09 16:48 | PN ---
PROGRESS NOTE DATE OF SERVICE: 02/09/2019 REASON FOR FOLLOWUP: Acute gastroenteritis, possibly viral. INTERVAL HISTORY: The patient is currently afebrile. She is complaining of some nausea, but it improved after she was given an injection by the RN. The patient denies having any abdominal pain. The patient denies having any diarrhea; rather, she did have a soft bowel movement. No chest pain, shortness of breath or cough. PHYSICAL EXAMINATION: On examination, blood pressure is 169/86, pulse 86, temperature 98.1. She is 99% on room air. General description is an elderly female lying in bed in no distress. RESPIRATORY SYSTEM: Unlabored breathing. Clear to auscultation anteriorly. HEART: S1, S2. Regular rate and rhythm. ABDOMEN: Soft. No tenderness. LABORATORY DATA: Hemoglobin is 11.7. White count is 7.6. BUN of 41. Creatinine is 1.44. DIAGNOSTIC IMPRESSION AND PLAN: Patient admitted to hospital with acute vomiting, diarrhea and dehydration in this patient with possible viral etiology. She was unable to provide any stool samples. We will continue the Questran as needed and monitor clinical course closely. MMODL / IJN: [id number] / MTDD
[2019-02-09] MEDS ORDERED: MELATONIN 5 MG TABLET PO SCH (21:00)
--- NOTE | 2019-02-09 23:06 | CONS ---
CONSULTATION DATE OF DICTATION: February 09, 2019. REQUESTING PHYSICIAN: Dr. Jones. REASON FOR CONSULTATION: Nausea, vomiting, diarrhea and rectal bleeding. HISTORY OF PRESENT ILLNESS: The patient is a 73-year-old pleasant white female who came into the emergency room 2 days ago complaining of nausea, vomiting, and diarrhea for the last 1 week duration. In fact, she has been having intermittent symptoms for the last 2-3 weeks, but she has consistent nausea, vomiting, and diarrhea for the last 1 week. She was having bowel movements anywhere from 7-8 day which are loose to watery in consistency with no blood or mucus in the stool. She was admitted to the hospital 3 days ago and stool studies were requested but was not done. In the meantime, Dr. Chávez was consulted. The patient was started on antimotility agents as well as Questran and her symptoms are gradually improving. This afternoon, she stated that she had 3 episodes of loose stools with a small streaks of blood and hence we are consulted for further evaluation. The patient denies any abdominal pain. The nausea, vomiting has improved. She did have elevated BUN and creatinine, which is improving with IV fluid resuscitation. She never had these symptoms in the past. She recalls having a colonoscopy [address] Farnsworth that was unremarkable. She denies any recent antibiotic use. No recent travel history. No new medications that were started recently. PAST MEDICAL HISTORY: Significant for hypertension. PAST SURGICAL HISTORY: Laparotomy in 1990, colonoscopy 2015. MEDICATIONS: At home include: Vitamin D3, lisinopril. ALLERGIES: SULFA. SOCIAL HISTORY: No smoking or alcohol use. FAMILY HISTORY: Unremarkable. REVIEW OF SYSTEMS: Cardiopulmonary: No chest pain, shortness of breath. no dysuria or hematuria. MUSCULOSKELETAL unremarkable. SKIN unremarkable. ENDOCRINE unremarkable. PSYCHIATRIC unremarkable. NEUROLOGY unremarkable. ENT/vision unremarkable. CONSTITUTIONAL: No recent weight loss. No fever, chills, night sweats. FAMILY HISTORY: Mother had brain tumor. PHYSICAL EXAMINATION: She appears comfortable. No apparent distress. VITAL SIGNS: Stable. Blood pressure is 152/83, pulse is 98, temperature 98.4. HEENT examination unremarkable. Conjunctivae pink. Sclerae anicteric. Oral cavity no lesions. NECK: No JVD or lymph node enlargement. CHEST Clear to auscultation. HEART: Regular rate and rhythm. ABDOMEN: Soft, it was nontender, nondistended. Bowel sounds are positive. No organomegaly. EXTREMITIES: No pedal edema. SKIN no rashes. NEUROLOGIC: Alert and oriented x3. No focal deficits. LABS: WBC 6.9, hemoglobin 12.9, platelets normal. Basic metabolic panel showed a BUN of 85, creatinine 2.03. Today, BUN is 41, creatinine is 1.44. Initial lactic acid was 2.9 and today it is 0.6. IMPRESSION: 1. This is a lady who presents to the hospital with acute onset of nausea, vomiting, diarrhea for the last 1 week duration. She was initially having loose watery bowel movements with no blood in the stool. However, this morning had 3 episodes of loose bowel movements with small streaks of blood and one small clot that she had noticed. The symptoms are very suggestive of infectious etiology, possibly viral, but possibility of bacterial colitis cannot be excluded. 2. Acute kidney injury from prerenal azotemia on aggressive IV hydration and BUN and creatinine . RECOMMENDATION: 1. Continue with IV hydration. 2. Advance diet as tolerated. 3. Obtain C difficile toxin as well as cultures. 4. If the bleeding resolves, no plans on any endoscopic intervention at this time. However, if she continues to have worsening diarrhea or worsening bleeding, we will consider further workup during this hospitalization. At this time we will follow her closely during the hospital stay and further recommendations will follow based on the clinical course. Thank you for this consultation. CHARLIE / NINI: [id number] /
[2019-02-10] MEDS: CHOLESTYRAMINE (WITH SUGAR) 4 GM PACKET PO SCH (07:49)
[2019-02-10] MEDS: PANTOPRAZOLE 40 MG/10 ML VIAL IV SCH (07:52)
[2019-02-10] MEDS: SODIUM CHLORIDE 0.9% 1,000 ML IV SCH (07:52)
[2019-02-10 08:08] VITALS: RESP 16
[2019-02-10 08:36] LABS: Basophils # (A) 0.1 k/uL (0-0.2); Basophils % (A) 1 %; Eosinophils # (A) 0.2 k/uL (0-0.7); Eosinophils % (A) 2 %; HCT 33.9 % (34.0-46.0); HGB 11.4 gm/dL (11.4-16.0); Lymphocytes % (A) 22 %; MCH 28.9 pg (25.0-35.0); MCHC 33.5 g/dL (31.0-37.0); MCV 86.1 fL (80.0-100.0); Mean Platelet Volume 6.4; Monocytes # (A) 0.4 k/uL (0-1.0); Monocytes % (A) 5 %; Neutrophils # (A) 6.4 k/uL (1.3-7.7); Neutrophils % (A) 69 %; Platelet Count 241 k/uL (150-450); RBC 3.94 m/uL (3.80-5.40); RDW 12.6 % (11.5-15.5); WBC 9.2 k/uL (3.8-10.6)
[2019-02-10 08:55] LABS: Calcium 8.8 mg/dL (8.4-10.2); Potassium 3.7 mmol/L (3.5-5.1); Total Bilirubin 0.6 mg/dL (0.2-1.3); Total Protein 5.1 g/dL (6.3-8.2)
[2019-02-10 13:37] VITALS: BP 162/82; PULSE 82; TEMP 98.5
--- NOTE | 2019-02-10 14:56 | P.DS ---
Providers Date of admission: 02/07/19 15:21 Expected date of discharge: 02/10/19 Attending physician: Richard Jones Consults: 02/07/19 15:47 Consult Physician Routine Consulting Provider: Rodger Chávez Consult Reason/Comments: Gastroenteritis Do you want consulting provider notified?: Yes 02/09/19 15:01 Consult Physician Routine Consulting Provider: Janae Escalante Consult Reason/Comments: blood in stool Do you want consulting provider notified?: Yes Primary care physician: [facility] Course: Discharge diagnosis 1. Viral Gastroenteritis with nausea vomiting and diarrhea. Stool study was negative for C. diff. Stool sample unable to be obtained, sample produced was too small and patient has not had another BM. Dr. Chávez infectious disease has been consulted. Per ID, will hold any systemic antibiotic therapy. Question was recommended for symptomatic relief however patient was unable to tolerate. Symptoms resolved. Patient tolerated diet. 2. Acute kidney injury secondary to dehydration. Creatinine elevated on admission 2.89 and bun 125. Creatinine at discharge is down to 1.08. Will order repeat CMP in 2 days. 3. Elevated lactic acid likely secondary to dehydration. LA elevated at 3.0. She received 1 L bolus normal saline at 75. Lactic acid has been ordered per protocol. Lactate 0.6, resolved. 4. History of essential hypertension. Patient home medication includes lisinopril hydrochlorothiazide currently on hold due to acute kidney injury will continue to monitor. Resume upon discharge 5. Elevated amylase and lipase. Amylase 121, lipase 772. Likely secondary to dehydration, will repeat labs. Repeat amylase was 93 and lipase was 393. Abdominal ultrasound was completed, findings most commonly related to hepatic steatosis. Pancreas is only partially visualized, would need a CT with contrast to assess for further pancreatitis Amylase and lipase are trending down, recommend close follow-up outpatient. Amylase and lipase are within normal range at discharge. 6. Hypokalemia. Potassium 3.4, patient is on replacement protocol. Potassium 3.8 today, resolved. 7. Streaks of blood noted in stool prior to discharge yesterday. Now resolved. May have been related to her viral infection irritating the colon Or could've been related to hemorrhoids. Patient has hemorrhoid cream at home that she'll be using. At this time there is been no further bleeding. Hemoglobin at discharge stable at 11.4. She was seen by GI service they are not planning on any endoscopy since bleeding results. Final stool cultures are pending. The stool for C. diff was negative. 8. Urine culture with gram-negative bacilli. This is likely contaminated from the diarrhea she presented with. Doubt UTI. Patient is asymptomatic for urinary symptoms. No fever. No elevation in her white count. Discussed with infectious disease. He is recommending no antibiotics at discharge. Hospital course This is a 73-year-old female patient of Dr. Plaza. Patient presented with nausea vomiting diarrhea for 1 week. Patient reports that she has been able to keep minimal fluid injuring 10 over the past week. Patient reports that he does feel more weak and lightheaded than normal. Patient reports she is concerned about the remaining that his recall she has been eating large amounts over the past few months. Patient also states she saw some bright red blood in her stool. Patient does state she has hemorrhoids is having multiple loose stools since resolved. Patient does have a past medical history of hypertension. Patient denies fevers. Patient denies any alcohol use. Patient denies any other significant medical history. Patient reports last colonoscopy was in 2015 and showed sigmoid diverticulosis with no evidence of acute diverticulitis strictures or polyps or cancer. Chest x-ray completed in ER showing no suspicious acute pulmonary process. Creatinine elevated at 2.89 and bun 125. Lactic acid 3.0. Patient's blood pressure medication currently on hold. Normal saline at 75. Amylase and lipase ordered. Stool for C. diff ordered. Stool culture ordered. Repeat labs ordered in a.m. at this time patient reports improvement with nausea vomiting and diarrhea. Patient denies chest pain or shortness of breath. Patient denies any urinary burning or frequency On 02/08/2019 patient is resting comfortably in her bed. Patient is in no acute distress. Patient states that she feels much better today. Patient has been afebrile overnight. Patient has had no nausea, vomiting, diarrhea. Last bowel movement was yesterday patient reports a very small amount. Lactate 0.6. WBC 7.6 down from 10.8. UA completed possibly suspicious for UTI, though patient is denying any symptoms. Will send urine culture. She was tolerating regular diet. Amylase 121, lipase 772, potentially due to dehydration. Will repeat. Creatinine on admission 2.89, today 2.03. On 02/09/2019 patient states that she is very uncomfortable in the bed and she is ready to go home. Overall she feels much better. Patient has had no nausea vomiting or diarrhea. Per ID,Questran was ordered for symptomatic relief sandra deidre patient was unable to tolerate. She is tolerating a regular diet. Last bowel movement was yesterday. She denies any chest pain or shortness of breath. Patient denies any urinary burning or frequency. Home blood pressure medications. Patient educated to increase hydration recommending close follow- up outpatient in regards amylase and lipase levels. CMP in 2 days. 02/10/2019 discharge was held yesterday due to blood in the stool. This has resolved. Patient seen by GI service. They felt symptoms were likely due to a viral infection but could not completely exclude a bacterial colitis. The recommended just to continue with IV hydration and current diet. Stool for C. diff was negative. Since bleeding had resolved GI service did not plan to proceed with any endoscopy at this time. Patient is tolerating diet. She denies any abdominal pain. She felt that maybe one of her hemorrhoids had flared up yesterday. She is having regular bowel movements diarrhea resolved. She has hemorrhoid cream at home that she will be using. Patient is medical stable for discharge. She's been cleared by all consulting physicians for discharge. Please refer to chart for any further details. I performed an examination of the patient and discussed their management with the physician Nut Roaster. I have reviewed the Physician Nut Roaster's notes and agree with the documented findings and plan of care Patient Condition at Discharge: Stable Plan - Discharge Summary Discharge Rx Participant: Yes New Discharge Prescriptions: Continue Lisinopril-Hctz 20-25 mg [Zestoretic 20-25] 1 tab PO DAILY Cholecalciferol [Vitamin D3 (25 Mcg = 1000 Iu)] 5,000 unit PO DAILY Discharge Medication List Cholecalciferol [Vitamin D3 (25 Mcg = 1000 Iu)] 5,000 unit PO DAILY 02/07/19 [History] Lisinopril-Hctz 20-25 mg [Zestoretic 20-25] 1 tab PO DAILY 02/07/19 [History] Follow up Appointment(s)/Referral(s): Debbie Plaza MD [Primary Care Provider] - 02/10/19 1:30 pm Ambulatory/Diagnostic Orders: Amylase [LAB.AMB] Time Frame: 2 Days, Location: None Selected Comprehensive Metabolic Panel [LAB.AMB] Time Frame: 2 Days, Location: None Selected Lipase [LAB.AMB] Time Frame: 2 Days, Location: None Selected Patient Instructions/Handouts: Dehydration (DC), Urinary Tract Infection in Women (DC) Activity/Diet/Wound Care/Special Instructions: Activity As tolerated. Diet as tolerated Discharge Disposition: HOME SELF-CARE
--- NOTE | 2019-02-10 17:22 | PN ---
PROGRESS NOTE DATE OF SERVICE: 02/10/2019. REASON FOR FOLLOWUP: Acute gastroenteritis. INTERVAL HISTORY: The patient is currently afebrile. The patient is breathing comfortably. The patient denies having any chest pain or cough. No nausea, vomiting. No abdominal pain. No diarrhea. PHYSICAL EXAMINATION: Blood pressure is 132/82 with a pulse of 82, temperature 98.5. She is 98% on room air. General description is an elderly female lying in bed in no distress. Respiratory system: Unlabored breathing. Clear to auscultation anteriorly. Heart S1, S2. Regular rate and rhythm. ABDOMEN: Soft. No tenderness. LAB: Stool for C difficile negative. Stool culture pending. Urine with gram- negative bacilli. UA was not significantly positive. DIAGNOSTIC IMPRESSION/PLAN: 1. The patient admitted to the hospital with acute nausea, vomiting and diarrhea, possible viral gastroenteritis. So far, stools for C-dif negative. Stool cultures pending. The patient's symptomatic treatment should be continued with Questran as needed. No need for any systemic antibiotics. 2. Positive urine culture, gram-negative in this patient with no urinary symptoms. Possible contamination. No need for any specific therapy for the same. Discussed with the admitting team. TEODORAL / IJN: [id number] / CORTEZ
--- NOTE | 2019-02-10 20:43 | PN ---
PROGRESS NOTE DATE OF DICTATION: 02/10/2019 Patient is a 73-year-old pleasant white female admitted to the hospital with acute onset of diarrhea with nausea, vomiting and some rectal bleeding yesterday. Her symptoms are much better today. She was seen in consultation yesterday and stool studies were ordered, which are still pending, but C difficile toxin was negative. This morning she had 3 soft bowel movements and one regular bowel movement. No further episodes of bleeding. Abdominal pain has resolved. She is tolerating a regular diet well. PHYSICAL EXAMINATION: She appears comfortable. No apparent distress. VITAL SIGNS: Stable. Blood pressure 132/82, pulse rate 82, temperature 98.5. HEENT examination unremarkable. Conjunctivae pink. Sclerae anicteric. Oral cavity no lesions. NECK: No JVD or lymph node enlargement. CHEST: Clear to auscultation. HEART: Regular rate and rhythm. ABDOMEN: Soft. Mild tenderness in the left lower quadrant area. Rest of the abdomen was benign. Bowel sounds are positive. EXTREMITIES: No pedal edema. SKIN: No rashes. NEUROLOGIC: Alert and oriented x3. No focal deficits. LABS: WBC 9.2, hemoglobin 11.4, platelets normal. Basic metabolic panel is within normal limits. C difficile is negative. Cultures are pending. IMPRESSION: Acute onset of nausea, vomiting, diarrhea with small amount of blood in the stool, most likely related to acute infectious colitis versus viral gastroenteritis. Her symptoms have resolved. Presently on no antibiotic therapy. Stool for C difficile toxin is negative. Cultures are still pending. RECOMMENDATIONS: 1. Advance diet as tolerated. 2. She can be discharged home today with outpatient followup as needed if she has recurrent symptoms. Thank you for this consultation. MMODL / IJN: [id number] /
[2019-02-11] MEDS ORDERED: PANTOPRAZOLE 40 MG TABLET PO SCH (09:00)
== END 2019-02-10 15:11 | disposition home or self-care (01) | DRG 392 ==
LOC: EC 12:54 → 4SSUR 15:21
PROVIDERS: ADMIT Internal Medicine; ATTEND Internal Medicine
DX: A08.4 Viral intestinal infection, unspecified (principal); N17.9 Acute kidney failure, unspecified; E87.2 Acidosis; E86.0 Dehydration; E87.6 Hypokalemia; I10 Essential (primary) hypertension; K57.30 Diverticulosis of large intestine without perforation or abscess without bleeding; K64.9 Unspecified hemorrhoids; K76.0 Fatty (change of) liver, not elsewhere classified; Z88.2 Allergy status to sulfonamides; Z79.899 Other long term (current) drug therapy
CPT/HCPCS: 36415; 71046; 76700; 80053; 80061; 81001; 82150; 82550; 83605; 83630; 83690; 83735; 84484; 85025; 85610; 85730; 87045; 87046; 87077; 87086; 87186; 87324; 93005; 94660; 96361; 96374; 96375; 99285

== ENCOUNTER 2019-03-12 09:43 | Inpatient (IN) | payer MEDICARE ==
[2019-03-12] MEDS ORDERED: SODIUM CHLORIDE 0.9% 1,000 ML IV STA ×2 (10:13)
[2019-03-12] MEDS ORDERED: ONDANSETRON 4 MG/2 ML VIAL IVP STA (10:14)
[2019-03-12 10:42] LABS: Basophils % (A) 0 %; Eosinophils # (A) 0.1 k/uL (0-0.7); Eosinophils % (A) 0 %; HCT 40.2 % (34.0-46.0); HGB 13.6 gm/dL (11.4-16.0); Lymphocytes # (A) 2.1 k/uL (1.0-4.8); Lymphocytes % (A) 13 %; MCH 28.9 pg (25.0-35.0); MCV 85.1 fL (80.0-100.0); Mean Platelet Volume 7.4; Monocytes # (A) 0.7 k/uL (0-1.0); Monocytes % (A) 4 %; Neutrophils # (A) 12.5 k/uL (1.3-7.7); Neutrophils % (A) 81 %; Platelet Count 412 k/uL (150-450); RBC 4.72 m/uL (3.80-5.40); RDW 13.5 % (11.5-15.5); WBC 15.5 k/uL (3.8-10.6)
[2019-03-12 10:46] LABS: Albumin 4.5 g/dL (3.5-5.0); Calcium 10.1 mg/dL (8.4-10.2); Magnesium 2.1 mg/dL (1.6-2.3); Potassium 3.9 mmol/L (3.5-5.1); Total Bilirubin 0.6 mg/dL (0.2-1.3); Total Protein 6.9 g/dL (6.3-8.2)
[2019-03-12 10:53] LABS: INR 0.9 (<1.2); Partial Thromboplastin Time 22.3 sec (22.0-30.0); Prothrombin Time 10.1 sec (9.0-12.0)
--- NOTE | 2019-03-12 11:09 | XR ---
EXAMINATION TYPE: XR chest 2V DATE OF EXAM: 03/12/2019 COMPARISON: 02/07/2019 HISTORY: 73 year-old female shortness of breath, difficulty breathing TECHNIQUE: PA and lateral views FINDINGS: The cardiomediastinal silhouette, aorta, and pulmonary vasculature are within normal limits. Hyperinf lation with mild interstitial prominence. No consolidation or pleural effusion. IMPRESSION: COPD. No acute cardiopulmonary process.
--- NOTE | 2019-03-12 11:30 | CT ---
EXAMINATION TYPE: CT abdomen pelvis wo con DATE OF EXAM: 03/12/2019 COMPARISON: None HISTORY: 73-year-old female Abdominal pain. CT DLP: 317.7 mGycm. Automated exposure control for dose reduction was used. TECHNIQUE: Contiguous axial scanning of the abdomen and pelvis without IV contrast. Coronal and sagit yuri reconstructions performed. FINDINGS: Heart normal size with trace anterior pericardial fluid. Lung bases clear without pleural effusion. [id number] size hiatal hernia. Noncontrast appearance of the liver, gallbladder, adrenal glands, kidneys, spleen, and pancreas show no gross abnormality. Some layering sludge in the gallbladder. No nephrolithiasis or hydronephrosis. Moderate atherosclerotic calcifications within the abdominal aorta without aneurysm. No dilated small bowel, free fluid, or free air. No mesenteric or retroperitoneal lymphadenopathy. Normal appendix. Some liquid stool within the right side of the colon and left-sided colonic divertic ulosis, greatest in the sigmoid colon. No pericolonic inflammatory change. Bladder is nondistended. Uterus anteverted. Pelvic phleboliths. No abnormal fluid collection in the p lizz or pelvic lymphadenopathy. Both mild degenerative change of the hips. Facet arthropathy mid to lower lumbar spine. Mild bulging discs throughout the lumbar spine. IMPRESSION: 1. Left-sided colonic diverticulosis, greatest in the sigmoid colon. No evidence for acute diverticu litis. 2. Some liquid stool within the right side of the colon may reflect enteritis. 3. Gallbladder sludge. No CT evidence for acute cholecystitis. 4. Small to moderate-sized hiatal hernia.
[2019-03-12] MEDS ORDERED: SODIUM CHLORIDE 0.9% 2,000 ML IV ONE (11:49)
--- NOTE | 2019-03-12 11:52 | ED ---
General Adult HPI - General Chief complaint: Shortness of Breath Stated complaint: Dehydration, weakness Time Seen by Provider: 03/12/19 09:45 Source: patient Mode of arrival: wheelchair Limitations: no limitations - History of Present Illness Initial comments: The patient is a 73-year-old female with past medical history of hypertension who presents emergency Department with weakness, nausea and vomiting since last night. Patient reports that she was hospitalized 1 month ago with similar symptoms. She had nausea, vomiting and diarrhea where she ended up in renal failure. She followed up to primary care physician on February 16 and kidney function was back to normal. She states that yesterday she once again began having nausea, vomiting and diarrhea. Yesterday she had 2 episodes of nonbilious, nonbloody vomiting. She an additional episode this morning. Also reports to multiple episodes of nonbloody diarrhea. No melanotic stools or he matochezia. Denies any sick contacts with similar symptoms. No concerns with eating any tainted foods. No fevers or chills. Cannot tolerate any oral intake including water. Admits to mild abdominal cramping. Denies dysuria, hematuria or difficulty voiding. There are no alleviating, precipitating or modifying factors - Related Data Home Medications Medication Instructions Recorded Confirmed Cholecalciferol [Vitamin D3 (25 5,000 unit PO DAILY 02/07/19 03/12/19 Mcg = 1000 Iu)] Lisinopril-Hctz 20-25 mg 1 tab PO DAILY 02/07/19 03/12/19 [Zestoretic 20-25] Allergies Allergy/AdvReac Type Severity Reaction Status Date / Time Sulfa (Sulfonamide Allergy Rash/Hives Verified 03/12/19 12:12 Antibiotics) Review of Systems ROS Statement: Those systems with pertinent positive or pertinent negative responses have been documented in the HPI. ROS Other: All systems not noted in ROS Statement are negative. Past Medical History Past Medical History: Hypertension Additional Past Medical History / Comment(s): fungal infection feet 2017 History of Any Multi-Drug Resistant Organisms: None Reported Additional Past Surgical History / Comment(s): laparotomy d/t PID 1990 Past Anesthesia/Blood Transfusion Reactions: No Reported Reaction Past Psychological History: No Psychological Hx Reported Smoking Status: Never smoker Past Alcohol Use History: None Reported Past Drug Use History: None Reported - Past Family History Mother Family Medical History: Cancer Additional Family Medical History / Comment(s): brain stem tumor General Exam Limitations: no limitations General appearance: alert, in no apparent distress Head exam: Present: atraumatic, normocephalic, normal inspection Eye exam: Present: normal appearance, PERRL, EOMI. Absent: scleral icterus, conjunctival injection, periorbital swelling ENT exam: Present: mucous membranes dry Neck exam: Present: normal inspection. Absent: tenderness, meningismus, lymphadenopathy Respiratory exam: Present: normal lung sounds bilaterally. Absent: respiratory distress, wheezes, rales, rhonchi, stridor Cardiovascular Exam: Present: regular rate, normal rhythm, normal heart sounds. Absent: systolic murmur, diastolic murmur, rubs, gallop, clicks GI/Abdominal exam: Present: soft, normal bowel sounds. Absent: distended, tenderness, guarding, rebound, rigid Extremities exam: Present: normal inspection, full ROM, normal capillary refill. Absent: tenderness, pedal edema, joint swelling, calf tenderness Back exam: Present: normal inspection Neurological exam: Present: alert, oriented X3, CN II-XII intact Psychiatric exam: Present: normal affect, normal mood Skin exam: Present: warm, dry, intact, normal color. Absent: rash Course Vital Signs 03/12/19 03/12/19 03/12/19 09:46 10:49 12:50 Temperature 97.4 F L Pulse Rate 61 93 93 Respiratory 18 20 18 Rate Blood Pressure 121/74 108/67 108/67 O2 Sat by Pulse 89 L 100 100 Oximetry EKG Findings - EKG Comments: EKG Findings:: EKG demonstrates a normal sinus rhythm with ventricular rate of 85. NJ interval 132. QRS 82. QTC of 433. There are no acute ST segment elevations or depressions concerning for ischemic change. No signs of [id number] or Brugada Medical Decision Making - Medical Decision Making Upon arrival the patient was placed into room 6. A thorough history and physical exam was performed. Peripheral IV was established. The patient was even 4 mg of Zofran for nausea and a liter bolus of normal saline. I did conduct laboratory studies. White blood cell count of 15.5. Coags are normal. CMP shows a creatinine of 5.5 with a BUN of 55. The patient was hypoxic on room air at 89% and therefore I did do a chest x-ray which demonstrated COPD findings. Patient denies a history of COPD. CT of the patient's abdomen and pelvis was performed without contrast which demonstrates left-sided colonic diverticulosis. No evidence of acute diverticulitis. Some liquid stool within the right side of the colon which may reflect enteritis. Gallbladder sludge. No signs of acute cholecystitis. Small to moderate-sized hiatal hernia. I discussed results patient. She did receive an additional 2 L bolus of normal saline followed by 100 mL per hour. A call discuss case with Dr. Tripp cool who is covering for Dr. Jones. He does request that I admitted to Dr. Jones with nephrology to consult. Patient remained in stable condition and was transported to the floor - Lab Data Result diagrams: 03/15/19 07:09 03/15/19 07:09 Lab Results 03/12/19 03/12/19 03/12/19 Range/Units 10:21 10:21 10:21 WBC 15.5 H (3.8-10.6) k/uL RBC 4.72 (3.80-5.40) m/uL Hgb 13.6 (11.4-16.0) gm/dL Hct 40.2 (34.0-46.0) % MCV 85.1 (80.0-100.0) fL MCH 28.9 (25.0-35.0) pg MCHC 34.0 (31.0-37.0) g/dL RDW 13.5 (11.5-15.5) % Plt Count 412 (150-450) k/uL Neutrophils % 81 % Lymphocytes % 13 % Monocytes % 4 % Eosinophils % 0 % Basophils % 0 % Neutrophils # 12.5 H (1.3-7.7) k/uL Lymphocytes # 2.1 (1.0-4.8) k/uL Monocytes # 0.7 (0-1.0) k/uL Eosinophils # 0.1 (0-0.7) k/uL Basophils # 0.0 (0-0.2) k/uL PT (9.0-12.0) sec INR (<1.2) APTT (22.0-30.0) sec Sodium 135 L (137-145) mmol/L Potassium 3.9 (3.5-5.1) mmol/L Chloride 101 (98-107) mmol/L Carbon Dioxide 15 L (22-30) mmol/L Anion Gap 19 mmol/L BUN 55 H (7-17) mg/dL Creatinine 5.58 H (0.52-1.04) mg/dL Est GFR (CKD-EPI)AfAm 8 (>60 ml/min/1.73 sqM) Est GFR (CKD-EPI)NonAf 7 (>60 ml/min/1.73 sqM) Glucose 108 H (74-99) mg/dL POC Glucose (mg/dL) (75-99) mg/dL POC Glu Toolroom Attendant ID Plasma Lactic Acid Yoel 1.4 (0.7-2.0) mmol/L Calcium 10.1 (8.4-10.2) mg/dL Magnesium 2.1 (1.6-2.3) mg/dL Total Bilirubin 0.6 (0.2-1.3) mg/dL AST 21 (14-36) U/L ALT 16 (4-34) U/L Alkaline Phosphatase 80 (38-126) U/L Creatine Kinase 36 (30-135) U/L Troponin I (0.000-0.034) ng/mL NT-Pro-B Natriuret Pep pg/mL Total Protein 6.9 (6.3-8.2) g/dL Albumin 4.5 (3.5-5.0) g/dL Lipase 230 (23-300) U/L Urine Color Urine Appearance (Clear) Urine pH (5.0-8.0) Ur Specific [place] (1.001-1.035) Urine Protein (Negative) Urine Glucose (UA) (Negative) Urine Ketones (Negative) Urine Blood (Negative) Urine Nitrite (Negative) Urine Bilirubin (Negative) Urine Urobilinogen (<2.0) mg/dL Ur Leukocyte Esterase (Negative) Urine RBC (0-5) /hpf Urine WBC (0-5) /hpf Ur Squamous Epith Cells (0-4) /hpf Urine Bacteria (None) /hpf Hyaline Casts (0-2) /lpf Urine Mucus (None) /hpf Urine Yeast (Budding) (None) /hpf 03/12/19 03/12/19 03/12/19 Range/Units 10:21 10:21 10:21 WBC (3.8-10.6) k/uL RBC (3.80-5.40) m/uL Hgb (11.4-16.0) gm/dL Hct (34.0-46.0) % MCV (80.0-100.0) fL MCH (25.0-35.0) pg MCHC (31.0-37.0) g/dL RDW (11.5-15.5) % Plt Count (150-450) k/uL Neutrophils % % Lymphocytes % % Monocytes % % Eosinophils % % Basophils % % Neutrophils # (1.3-7.7) k/uL Lymphocytes # (1.0-4.8) k/uL Monocytes # (0-1.0) k/uL Eosinophils # (0-0.7) k/uL Basophils # (0-0.2) k/uL PT 10.1 (9.0-12.0) sec INR 0.9 (<1.2) APTT 22.3 (22.0-30.0) sec Sodium (137-145) mmol/L Potassium (3.5-5.1) mmol/L Chloride (98-107) mmol/L Carbon Dioxide (22-30) mmol/L Anion Gap mmol/L BUN (7-17) mg/dL Creatinine (0.52-1.04) mg/dL Est GFR (CKD-EPI)AfAm (>60 ml/min/1.73 sqM) Est GFR (CKD-EPI)NonAf (>60 ml/min/1.73 sqM) Glucose (74-99) mg/dL POC Glucose (mg/dL) (75-99) mg/dL POC Glu Toolroom Attendant ID Plasma Lactic Acid Yoel (0.7-2.0) mmol/L Calcium (8.4-10.2) mg/dL Magnesium (1.6-2.3) mg/dL Total Bilirubin (0.2-1.3) mg/dL AST (14-36) U/L ALT (4-34) U/L Alkaline Phosphatase (38-126) U/L Creatine Kinase (30-135) U/L Troponin I <0.012 (0.000-0.034) ng/mL NT-Pro-B Natriuret Pep 159 pg/mL Total Protein (6.3-8.2) g/dL Albumin (3.5-5.0) g/dL Lipase (23-300) U/L Urine Color Urine Appearance (Clear) Urine pH (5.0-8.0) Ur Specific [place] (1.001-1.035) Urine Protein (Negative) Urine Glucose (UA) (Negative) Urine Ketones (Negative) Urine Blood (Negative) Urine Nitrite (Negative) Urine Bilirubin (Negative) Urine Urobilinogen (<2.0) mg/dL Ur Leukocyte Esterase (Negative) Urine RBC (0-5) /hpf Urine WBC (0-5) /hpf Ur Squamous Epith Cells (0-4) /hpf Urine Bacteria (None) /hpf Hyaline Casts (0-2) /lpf Urine Mucus (None) /hpf Urine Yeast (Budding) (None) /hpf 03/12/19 03/13/19 03/13/19 Range/Units 19:25 07:29 12:04 WBC (3.8-10.6) k/uL RBC (3.80-5.40) m/uL Hgb (11.4-16.0) gm/dL Hct (34.0-46.0) % MCV (80.0-100.0) fL MCH (25.0-35.0) pg MCHC (31.0-37.0) g/dL RDW (11.5-15.5) % Plt Count (150-450) k/uL Neutrophils % % Lymphocytes % % Monocytes % % Eosinophils % % Basophils % % Neutrophils # (1.3-7.7) k/uL Lymphocytes # (1.0-4.8) k/uL Monocytes # (0-1.0) k/uL Eosinophils # (0-0.7) k/uL Basophils # (0-0.2) k/uL PT (9.0-12.0) sec INR (<1.2) APTT (22.0-30.0) sec Sodium 140 (137-145) mmol/L Potassium 4.2 (3.5-5.1) mmol/L Chloride 112 H (98-107) mmol/L Carbon Dioxide 10 L (22-30) mmol/L Anion Gap 18 mmol/L BUN 55 H (7-17) mg/dL Creatinine 4.48 H (0.52-1.04) mg/dL Est GFR (CKD-EPI)AfAm 11 (>60 ml/min/1.73 sqM) Est GFR (CKD-EPI)NonAf 9 (>60 ml/min/1.73 sqM) Glucose 50 L (74-99) mg/dL POC Glucose (mg/dL) 59 L (75-99) mg/dL POC Glu Toolroom Attendant ID Radha Rodriguez Plasma Lactic Acid Yoel (0.7-2.0) mmol/L Calcium 8.9 (8.4-10.2) mg/dL Magnesium (1.6-2.3) mg/dL Total Bilirubin 0.6 (0.2-1.3) mg/dL AST 22 (14-36) U/L ALT 12 (4-34) U/L Alkaline Phosphatase 67 (38-126) U/L Creatine Kinase (30-135) U/L Troponin I (0.000-0.034) ng/mL NT-Pro-B Natriuret Pep pg/mL Total Protein 5.7 L (6.3-8.2) g/dL Albumin 3.4 L (3.5-5.0) g/dL Lipase (23-300) U/L Urine Color Yellow Urine Appearance Cloudy H (Clear) Urine pH 5.0 (5.0-8.0) Ur Specific [place] 1.011 (1.001-1.035) Urine Protein Trace H (Negative) Urine Glucose (UA) Negative (Negative) Urine Ketones Trace H (Negative) Urine Blood Trace H (Negative) Urine Nitrite Positive H (Negative) Urine Bilirubin Negative (Negative) Urine Urobilinogen <2.0 (<2.0) mg/dL Ur Leukocyte Esterase Large H (Negative) Urine RBC 4 (0-5) /hpf Urine WBC 30 H (0-5) /hpf Ur Squamous Epith Cells 1 (0-4) /hpf Urine Bacteria Many H (None) /hpf Hyaline Casts 30 H (0-2) /lpf Urine Mucus Rare H (None) /hpf Urine Yeast (Budding) Occasional H (None) /hpf 03/13/19 Range/Units 12:20 WBC (3.8-10.6) k/uL RBC (3.80-5.40) m/uL Hgb (11.4-16.0) gm/dL Hct (34.0-46.0) % MCV (80.0-100.0) fL MCH (25.0-35.0) pg MCHC (31.0-37.0) g/dL RDW (11.5-15.5) % Plt Count (150-450) k/uL Neutrophils % % Lymphocytes % % Monocytes % % Eosinophils % % Basophils % % Neutrophils # (1.3-7.7) k/uL Lymphocytes # (1.0-4.8) k/uL Monocytes # (0-1.0) k/uL Eosinophils # (0-0.7) k/uL Basophils # (0-0.2) k/uL PT (9.0-12.0) sec INR (<1.2) APTT (22.0-30.0) sec Sodium (137-145) mmol/L Potassium (3.5-5.1) mmol/L Chloride (98-107) mmol/L Carbon Dioxide (22-30) mmol/L Anion Gap mmol/L BUN (7-17) mg/dL Creatinine (0.52-1.04) mg/dL Est GFR (CKD-EPI)AfAm (>60 ml/min/1.73 sqM) Est GFR (CKD-EPI)NonAf (>60 ml/min/1.73 sqM) Glucose (74-99) mg/dL POC Glucose (mg/dL) 70 L (75-99) mg/dL POC Glu Toolroom Attendant ID Radha Rodriguez Plasma Lactic Acid Yoel (0.7-2.0) mmol/L Calcium (8.4-10.2) mg/dL Magnesium (1.6-2.3) mg/dL Total Bilirubin (0.2-1.3) mg/dL AST (14-36) U/L ALT (4-34) U/L Alkaline Phosphatase (38-126) U/L Creatine Kinase (30-135) U/L Troponin I (0.000-0.034) ng/mL NT-Pro-B Natriuret Pep pg/mL Total Protein (6.3-8.2) g/dL Albumin (3.5-5.0) g/dL Lipase (23-300) U/L Urine Color Urine Appearance (Clear) Urine pH (5.0-8.0) Ur Specific [place] (1.001-1.035) Urine Protein (Negative) Urine Glucose (UA) (Negative) Urine Ketones (Negative) Urine Blood (Negative) Urine Nitrite (Negative) Urine Bilirubin (Negative) Urine Urobilinogen (<2.0) mg/dL Ur Leukocyte Esterase (Negative) Urine RBC (0-5) /hpf Urine WBC (0-5) /hpf Ur Squamous Epith Cells (0-4) /hpf Urine Bacteria (None) /hpf Hyaline Casts (0-2) /lpf Urine Mucus (None) /hpf Urine Yeast (Budding) (None) /hpf Disposition Clinical Impression: Dehydration, BO (acute kidney injury), Nausea & vomiting Disposition: ADMITTED IP TO THIS [facility] Condition: Serious Is patient prescribed a controlled substance at d/c from ED?: No Decision to Admit Reason: Admit from EC Decision Date: 03/12/19 Decision Time: 12:11
[2019-03-12] MEDS ORDERED: NALOXONE 0.4 MG/ML 1 ML VIAL IV PRN (12:12)
[2019-03-12] MEDS: PANTOPRAZOLE 40 MG/10 ML VIAL IV SCH (14:34)
[2019-03-12] MEDS: ONDANSETRON 4 MG/2 ML VIAL IVP PRN (14:35)
[2019-03-12] MEDS ORDERED: PROCHLORPERAZINE 5 MG TAB PO PRN (17:15)
[2019-03-12] MEDS: metroNIDAZOLE-NS PMX 500 MG in SALINE 1 100ML.BAG IVPB SCH (18:22)
[2019-03-12 19:51] LABS: Appearance,Urine Cloudy (Clear); Bacteria,Urine Many /hpf; Bilirubin,Urine Negative (Negative); Blood,Urine Trace (Negative); Budding Yeast,Urine Occasional /hpf; Color,Urine Yellow; Glucose,Urine (UA) Negative (Negative); Hyaline Casts,Urine 30 /lpf (0-2); Ketones,Urine Trace (Negative); Leukocyte Esterase,Urine Large (Negative); Mucus,Urine Rare /hpf; Nitrite,Urine Positive (Negative); Protein,Urine Trace (Negative); RBC,Urine 4 /hpf (0-5); Specific Gravity,Urine 1.011 (1.001-1.035); Squamous Epithelial Cell,Urine 1 /hpf (0-4); Urobilinogen,Urine <2.0 mg/dL (<2.0); WBC,Urine 30 /hpf (0-5)
[2019-03-12] MEDS: MELATONIN 1 MG TAB PO SCH (22:43)
[2019-03-13] MEDS: metroNIDAZOLE-NS PMX 500 MG in SALINE 1 100ML.BAG IVPB SCH ×3 (01:03→11:43)
[2019-03-13] MEDS: PANTOPRAZOLE 40 MG/10 ML VIAL IV SCH (08:06)
[2019-03-13] MEDS: ONDANSETRON 4 MG/2 ML VIAL IVP PRN (08:06)
[2019-03-13] MEDS ORDERED: SODIUM CHLORIDE 0.9% 1,000 ML IV SCH (08:15)
[2019-03-13 09:00] LABS: Albumin 3.4 g/dL (3.5-5.0); Calcium 8.9 mg/dL (8.4-10.2); Potassium 4.2 mmol/L (3.5-5.1); Total Bilirubin 0.6 mg/dL (0.2-1.3); Total Protein 5.7 g/dL (6.3-8.2)
[2019-03-13 12:05] LABS: Glucose,Whole Blood 59 mg/dL (75-99)
[2019-03-13 12:22] LABS: Glucose,Whole Blood 70 mg/dL (75-99)
[2019-03-13] MEDS: DEXTROSE 5% IN WATER 1,000 ML with SODIUM BICARB (1 MEQ/ML) 150 ML IV SCH (12:29)
--- NOTE | 2019-03-13 13:11 | CONS ---
CONSULTATION REASON FOR CONSULT: Renal failure. HISTORY OF PRESENT ILLNESS: Patient is a 73-year-old female who was admitted to the hospital with complaints of nausea, vomiting and diarrhea going on for about a week. The patient states that she was admitted to the hospital earlier in February with similar complaints. She felt she got better and she had been doing fairly okay for a few days after discharge, but came back with worsening symptoms. The patient denied any fever. She denied any sick contacts. There are no complaints of chest pains. No shortness of breath. Serum creatinine was noted to be 5.5 mg/dL on admission. The patient denies use of any nonsteroidal anti-inflammatory agents. Her creatinine was 1.0 on 02/16/2019. She did have an episode of acute kidney injury with creatinine at 2.8 on her initial admission in on 02/07/2019. Prior creatinine was 0.8. The patient is maintained on EMBER inhibitors and diuretics at home which she had been taking prior to her admission. PAST MEDICAL HISTORY: Hypertension. PAST SURGICAL HISTORY: Laparotomy. SOCIAL HISTORY: Negative for smoking, drug abuse or alcohol abuse. MEDICATIONS AT HOME: Included Zestoretic. ALLERGIES: Include SULFA WHICH CAUSES RASH AND HIVES. REVIEW OF SYSTEMS: As per HPI. Other systems negative. PHYSICAL EXAMINATION: On examination, patient is comfortable, awake, alert, oriented x3. Not in any acute distress. Blood pressure is 115/55, heart rate 77 per minute, she is afebrile. Examination of the heart S1, S2. Examination of the lungs, bilateral breath sounds are heard. Abdomen is soft, nontender. Examination of lower extremities shows no evidence of edema. CLINICAL DATA RESEARCH exam grossly intact. LAB: Show sodium 140, potassium 4.2, chloride 112, CO2 is 10. BUN 55, creatinine 4.48. UA shows blood trace, nitrite positive, trace protein, WBCs 30 and RBCs 4. Budding yeast is noted. CT of the abdomen and pelvis shows left-sided colonic diverticulosis. No major diverticulitis was noted. Gallbladder sludge was seen. Some liquid stool was seen on the right side of the colon which may reflect enteritis. ASSESSMENT: 1. Acute kidney injury secondary to intravascular volume depletion, mainly prerenal. Continue with the aggressive IV hydration. 2. Metabolic acidosis, anion gap secondary to renal failure with a component of metabolic acidosis from diarrhea, which is typically non gap. The patient will be started on bicarb drip. 3. Volume depletion. 4. History of hypertension. Blood pressure currently on the lower side. Hold off on EMBER inhibitors and diuretics. 5. Possible urinary tract infection. Urine culture is pending. Will start empiric antibiotics as the as patient does have an elevated white count as well. PLAN: Start IV bicarb. Repeat labs in a.m. Avoid nephrotoxic agents. Hold off on EMBER inhibitors and diuretics. Follow up on urine cultures and DC antibiotics if urine culture is negative. Thank you for this consultation. We will continue to follow the patient with you during her hospitalization. MMODL / IJN: [id number] /
--- NOTE | 2019-03-13 14:47 | HP ---
HISTORY AND PHYSICAL Covering for Dr. Jones. DATE OF SERVICE: 03/13/2019. HISTORY OF PRESENT ILLNESS: Patient is a 73-year-old female who apparently was in the hospital about a month ago with symptoms of nausea, vomiting, and diarrhea and acute kidney injury with dehydration. The patient was stabilized and discharged home. She says that she followed up with her primary care physician and her kidney function had improved and it was back into the normal range. The patient states that she never fully regained her energy back and this past night and Thursday morning, patient started to experiencing nausea, vomiting and diarrhea again at which time the patient came back to the emergency room and was admitted for further evaluation and treatment. PAST MEDICAL HISTORY: Significant for hypertension, fungal infection of her feet in 2017. PAST SURGICAL HISTORY: Significant for laparotomy secondary to PID in 1990. ALLERGIES: INCLUDE SULFA. MEDICATIONS: Home medications include Zestoretic one tab p.o. daily and vitamin D3 5000 units p.o. daily. FAMILY HISTORY: Mother from a brain stem tumor. Father of old age at the age of 99-03/10. SOCIAL HISTORY: Patient has never smoked. Denies any alcohol intake. Denies any illicit drug use. REVIEW OF SYSTEMS: General is positive for weakness. Appetite has been so-so. Patient said it was improving and then started to worsen again as symptoms restarted. Denies any fever. Denies any chills. The patient has lost approximately 7 pounds since the previous bout of nausea and vomiting and dehydration in between doctor's office visits. It was a 7 pounds weight loss. HEENT: Negative for any headaches, dizziness, lightheadedness. Positive for seasonal allergies. Negative for any acute visual changes. Negative for difficulty hearing. Negative for sore throat or difficulty swallowing respiratory is significant for some shortness of breath. Negative for any cough. Cardiovascular is negative for chest pain or palpitations. GI: Significant for nausea, vomiting, diarrhea, abdominal cramps. According to the CT, patient does have a hiatal hernia. : Positive for dysuria. Patient states she felt like she had to urinate but was unable to go. Denies any hematuria. Endocrine is negative for diabetes or hypothyroid. MUSCULOSKELETAL: Negative for any arthritic or joint pain. PSYCHIATRIC: Negative for depression or anxiety. PHYSICAL EXAM: GENERAL is a pleasant 73-year-old female who is seen lying in bed, is awake and alert. Continues to experience nausea and vomiting. VITAL SIGNS: Temp 98.1, heart rate is 77, respiratory rate is 16, blood pressure is 115/55, O2 sats 96% on 2 L O2 via nasal cannula HEENT: Head is normocephalic, atraumatic. Pupils equal, round, react to light. Ears and nose, no discharge is noted. Mouth with dry mucous membranes. Mallampati is class 4. NECK: Supple. Trachea is midline. No lymphadenopathy. LUNGS are clear. No rales or wheezes. HEART S1, S2 are heard. Not tachycardic. ABDOMEN: Soft. Bowel sounds are positive. EXTREMITIES: With no edema. NEUROLOGIC: Patient is awake, alert, oriented. LABS: White count is 15.5, hemoglobin is 13.6, hematocrit is 40.2 with 412,000 platelets. PT 10.1, INR 0.9, PTT is 22.3. BMP at time of admission was: Sodium was 135, potassium 3.9, chloride 101, CO2 15, anion gap 19, BUN 55, creatinine 5.58, glucose 108, plasma lactic acid venous 1.4, calcium 10.1, magnesium 2.1, total bilirubin 0.6, AST 21, ALT 16, alkaline phosphatase 80. CK 36. Troponins less than 0.012. BNP 159, total protein 6.9, albumin 4.5, lipase 230. Urinalysis showed cloudy urine with trace protein, negative glucose, trace ketones, trace blood, positive nitrites, large leuk esterase, 30 urine white blood cells, occasional budding yeast. BMP done this morning, sodium is 140, potassium is 4.2, chloride is 112, CO2 is 10, anion gap is 18, BUN is 55, creatinine is 4.48, glucose is 50, calcium is 8.9, total bilirubin 0.6, AST 22, ALT 12, alkaline phosphatase 67, total protein 5.7, albumin is 3.4. IMAGING: Chest x-ray shows COPD, no acute cardiopulmonary process. CT of abdomen and pelvis shows left-sided colonic diverticulosis, greatest in the sigmoid colon. No evidence for acute diverticulitis. Some liquid stool within the right side of the colon may reflect enteritis. Gallbladder sludge. No CT evidence for acute cholecystitis. Small to moderate-sized hiatal hernia. IMPRESSION: At this time: 1. Acute dehydration. 2. Acute kidney injury. 3. Metabolic acidosis secondary to acute kidney injury. 4. Acute urinary tract infection. 5. Nausea and vomiting and diarrhea. Possible gastroenteritis. 6. Hypoglycemia. 7. History of hypertension. PLAN: The patient will be maintained on IV fluids to be changed to D5 with 3 amps of bicarb at 100 mL an hour. Will add Rocephin 1 g IV daily for UTI. We will add Protonix 40 mg IV daily for GI prophylaxis and heparin 5000 units subcu q.12 hours for DVT prophylaxis. Consult Nephrology. Consult Infectious Disease. Repeat labs in the a.m. Use Zofran 4 mg IV q.8 hours p.r.n. for nausea and vomiting. Clear liquid diet as tolerated. We will continue to follow patient closely making further changes as necessary. CHARLIE / NINI: [id number] /
[2019-03-13 17:24] LABS: Glucose,Whole Blood 144 mg/dL (75-99)
[2019-03-13] MEDS: MELATONIN 1 MG TAB PO SCH (21:41)
[2019-03-13] MEDS: HEPARIN SODIUM,PORCINE 5,000 UNIT/ML 1 ML VIAL SQ SCH (21:41)
--- NOTE | 2019-03-13 23:54 | CONS ---
CONSULTATION DATE OF SERVICE: 03/13/2019 REASON FOR CONSULTATION: Infection. HISTORY OF PRESENT ILLNESS: The patient is a 73-year-old female presenting to the ER at [facility] yesterday morning with chief complaints of weakness, nausea and vomiting that apparently has been going on for about a day before she presented to the hospital. Apparently the patient did have similar symptoms about a month ago. The patient mentioning she had about 3-4 episodes of vomiting the day she presented to the hospital, was mostly foamy and mentioned at the end there may be some dried up blood. The patient did have some abdominal discomfort, described to be more efficacious discomfort, but no fever or any chills. The patient mentioning prior to that, that she was having some low stool. However that has resolved. She did have soft bowel movement today with no blood or mucus in the stools. With these symptoms, the patient has been evaluated by the ER physician. On arrival to the ER, the patient was afebrile. The patient did have white count of 15.5. The creatinine was 5.5. Electrolytes are normal. Liver enzymes are normal. Urine was cloudy with large leukocyte esterase with 30 WBC. Cultures currently pending. The patient has been admitted in the hospital. He was started on Rocephin and Flagyl. Infectious Disease was consulted for further recommendations regarding antibiotic therapy. The patient did have a CT abdominal and pelvis completed as well, which was done without IV contrast which shows left-sided colonic diverticulosis and colitis in sigmoid colon. No evidence of acute diverticulitis. Small liquid stool within right-side of colon may reflect enteritis and gallbladder sludge. No cholecystitis. As of this morning, the patient is feeling slightly better. Still having some nausea but no further vomiting has been noticed. REVIEW OF SYSTEMS: Positive points have been mentioned in HPI. Rest of the systems are negative. PAST MEDICAL HISTORY: Past medical history is significant for hypertension, PID, fungal infection of the feet 2017. PAST SURGICAL HISTORY: Laparotomy for PID in 1990. SOCIAL HISTORY: Denies smoking, drinking or drug use. FAMILY HISTORY: Mother history of brain stem tumor. ALLERGIES: TO SULFA. MEDICATIONS: Medications currently include the patient is on Compazine, Protonix, Zofran, Narcan, Flagyl heparin, Rocephin. PHYSICAL EXAMINATION: On examination, her blood pressure is 115/55 with a pulse of 77, temperature 98.1. She is 96% on room air. General description is an elderly female up in the bed in no distress. No tachypnea or accessory muscles of respiration use. HEENT: Shows slight pallor. No scleral icterus. Oral mucous membranes dry. No pharyngeal erythema or thrush. NECK: Trachea central. No thyromegaly. LUNGS unlabored breathing. Decreased breath sounds at the bases. No wheeze or crackles. HEART S1, S2. Regular rate and rhythm. ABDOMEN: Soft, no tenderness. No guarding or rigidity. EXTREMITIES are no edema of the feet. SKIN examination: No rash or mass palpable. NEUROLOGICAL: Patient is awake, alert, oriented times three. Mood and affect normal. LABS: Hemoglobin is 13.3, white count 15.5 yesterday, not repeated today. She did have BUN of 55, creatinine 4.48, improved from yesterday 5.58. Potassium is normal. Liver enzymes are normal. Urine was cloudy with large leukocyte esterase with [address]BC[address] with many bacteria. CT abdominal and pelvis mentioned above. DIAGNOSTIC IMPRESSION AND PLAN: Patient admitted to hospital with acute nausea and vomiting of 1 day duration in this patient who did have significant abdominal pain or tenderness and no diarrhea. Did have a positive UA with a question of symptomatic urinary tract infection from enteric gram-negative pathogen not entirely excluded, versus viral gastroenteritis. PLAN: 1. Rocephin 1 g IV piggyback daily and discontinue Flagyl as no evidence of any diverticulitis or colitis that was seen on the CT. 2. IV fluids. 3. We will follow up on clinical condition and culture to further adjust medication if needed. Thank you for this consultation. I will follow the patient along with you. MMODL / IJN: [id number] /
[2019-03-14] MEDS: DEXTROSE 5% IN WATER 1,000 ML with SODIUM BICARB (1 MEQ/ML) 150 ML IV SCH ×2 (02:52→11:19)
[2019-03-14] MEDS: ONDANSETRON 4 MG/2 ML VIAL IVP PRN (04:45)
[2019-03-14 08:08] LABS: Calcium 8.6 mg/dL (8.4-10.2); Magnesium 1.9 mg/dL (1.6-2.3); Phosphorus 4.1 mg/dL (2.5-4.5); Potassium 3.2 mmol/L (3.5-5.1)
[2019-03-14] MEDS: PANTOPRAZOLE 40 MG/10 ML VIAL IV SCH (09:07)
[2019-03-14] MEDS: HEPARIN SODIUM,PORCINE 5,000 UNIT/ML 1 ML VIAL SQ SCH ×2 (09:07→19:47)
[2019-03-14] MEDS: POTASSIUM CHLORIDE ER 10 MEQ TAB.ER.PRT PO SCH ×2 (11:20→12:15)
--- NOTE | 2019-03-14 11:40 | P.PN ---
Subjective Patient is seen in follow-up for acute kidney injury. Renal function is improving. Creatinine 3.4 today. She has been voiding. Currently on clear diet. No nausea or vomiting. No abdominal pain. Vital signs are stable. General: The patient appeared well nourished and normally developed. HEENT: Head exam is unremarkable. Neck is without jugular venous distension. LUNGS: Lungs are clear to auscultation and percussion. Breath sounds decreased. HEART: Rate and Rhythm are regular. First and second heart sounds normal. No murmurs, rubs or gallops. ABDOMEN: Abdominal exam reveals normal bowel sounds. Non-tender and non- distended. No evidence of peritonitis. EXTREMITITES: No clubbing, cyanosis, or edema. Objective - Vital Signs Vital signs: Vital Signs Temp 98.5 F 03/14/19 07:00 Pulse 81 03/14/19 07:00 Resp 16 03/14/19 07:00 BP 126/63 03/14/19 07:00 Pulse Ox 99 03/14/19 07:00 Intake & Output 03/13/19 03/14/19 03/14/19 18:59 06:59 18:59 Intake Total 800 240 Balance 800 240 Intake: Intake, IV Titration 800 Amount Dextrose 5% in Water 1, 800 000 ml @ 100 mls/hr IV . [id number] BIJAL with Sodium Bicarb (1 Meq/ml) 150 ml Rx#:[id number] Oral 240 Other: Voiding Method Toilet Toilet # Voids 3 2 - Labs CBC & Chem 7: 03/12/19 10:21 03/14/19 06:51 Labs: Abnormal Lab Results - Last 24 Hours (Table) 03/13/19 03/13/19 03/13/19 Range/Units 12:04 12:20 17:23 Potassium (3.5-5.1) mmol/L Chloride (98-107) mmol/L BUN (7-17) mg/dL Creatinine (0.52-1.04) mg/dL Glucose (74-99) mg/dL POC Glucose (mg/dL) 59 L 70 L 144 H (75-99) mg/dL 03/14/19 Range/Units 06:51 Potassium 3.2 L (3.5-5.1) mmol/L Chloride 108 H (98-107) mmol/L BUN 47 H (7-17) mg/dL Creatinine 3.24 H (0.52-1.04) mg/dL Glucose 123 H (74-99) mg/dL POC Glucose (mg/dL) (75-99) mg/dL Microbiology - Last 24 Hours (Table) 03/12/19 19:25 Urine Culture - Preliminary Urine,Voided Gram Neg Bacilli Assessment and Plan Plan: Assessment: 1. Acute kidney injury mostly prerenal secondary to intravascular volume depletion improving with IV hydration. Creatinine 3.4 today. 2. Metabolic acidosis secondary to acute kidney injury and GI losses. Currently on bicarb drip. 3. Hypokalemia secondary to intracellular shifting from IV bicarb. Magnesium normal. 4. UTI with urine culture positive for gram-negative bacilli maintained on IV antibiotics. Plan: Discontinue bicarbonate drip. Start normal saline at 80 mL an hour. Replace potassium. 60 mg once today. Repeat electrolytes in the morning.
[2019-03-14] MEDS: SODIUM CHLORIDE 0.9% 1,000 ML IV SCH ×2 (12:15→19:48)
[2019-03-14] MEDS ORDERED: POTASSIUM CHLORIDE ER 10 MEQ TAB.ER.PRT PO ONE (13:00)
--- NOTE | 2019-03-14 14:03 | P.PN ---
Subjective Progress Note Date: 03/14/19 This is a 73-year-old female presented to the hospital with nausea vomiting and diarrhea and evidence of acute kidney injury with dehydration. She was covered by Dr. SERAFIN Galvez over the weekend for Dr. Jones. Patient had similar symptoms about a month ago. At this time she's had no further vomiting. Her stools are becoming more formed. She denies any abdominal pain. She is being treated for UTI and gastroenteritis. Urine culture growing gram-negative bacilli. She is currently on Rocephin. She's been followed by nephrology and infectious disease. Creatinine is down to 3.24. Potassium is low at 3.2. Patient did have a computed tomography scan of the abdomen completed showing left-sided co lonic diverticulosis with no acute diverticulitis. There was some liquid stool within the right side of the colon that may reflect enteritis. Gallbladder sludge but no evidence of acute cholecystitis. And a small to moderate sized hiatal hernia. Objective - Vital Signs Vital signs: Vital Signs Temp 98.5 F 03/14/19 07:00 Pulse 81 03/14/19 07:00 Resp 16 03/14/19 07:00 BP 126/63 03/14/19 07:00 Pulse Ox 99 03/14/19 07:00 Intake & Output 03/13/19 03/14/19 03/14/19 18:59 06:59 18:59 Intake Total 800 240 950 Balance 800 240 950 Intake: IV 950 Dextrose 5% in Water 1, 600 000 ml @ 100 mls/hr IV . [id number] BIJAL with Sodium Bicarb (1 Meq/ml) 150 ml Rx#:[id number] Sodium Chloride 0.9% 1, 300 000 ml @ 75 mls/hr IV . [id number] BIJAL Rx#:[id number] cefTRIAXone 1 gm In 50 Sodium Chloride 0.9% 50 ml @ 100 mls/hr IVPB Q24HR BIJAL Rx#:[id number] Intake, IV Titration 800 Amount Dextrose 5% in Water 1, 800 000 ml @ 100 mls/hr IV . [id number] BIJAL with Sodium Bicarb (1 Meq/ml) 150 ml Rx#:[id number] Oral 240 Other: Voiding Method Toilet Toilet # Voids 3 2 # Bowel Movements 1 - Exam Head normocephalic Neck supple Lungs clear to auscultation bilaterally no wheezing or crackles Heart regular rate and rhythm S1-S2, no rub or gallop Abdomen is soft nontender nondistended positive bowel sounds no hepatosplenomegaly Extremities no edema Neuro alert and orientated to 3 - Labs CBC & Chem 7: 03/12/19 10:21 03/14/19 06:51 Labs: Abnormal Lab Results - Last 24 Hours (Table) 03/13/19 03/14/19 Range/Units 17:23 06:51 Potassium 3.2 L (3.5-5.1) mmol/L Chloride 108 H (98-107) mmol/L BUN 47 H (7-17) mg/dL Creatinine 3.24 H (0.52-1.04) mg/dL Glucose 123 H (74-99) mg/dL POC Glucose (mg/dL) 144 H (75-99) mg/dL Microbiology - Last 24 Hours (Table) 03/12/19 19:25 Urine Culture - Preliminary Urine,Voided Gram Neg Bacilli Assessment and Plan Assessment: 1. Nausea, vomiting and diarrhea likely secondary to a gastroenteritis. GI consulted. Patient currently on IV fluids. Symptoms have improved. We'll monitor. Continue with the Zofran as needed. Will increase diet to a full liquid diet and monitor 2. Urinary tract infection: Urine culture growing gram-negative bacilli. Continue Rocephin. Await urine culture to finalize. ID following 3. Acute kidney injury likely prerenal secondary to intravascular volume depletion. Creatinine on admission was around 5. Creatinine today is 3.24. Continue with IV fluids. Nephrology is following. 4. Metabolic acidosis secondary to acute kidney injury and GI losses. Nephrology is following. Initially was on a sodium bicarbonate drip. This was discontinued today by nephrology 5. Hypokalemia: Magnesium level is normal. Patient given potassium supplement per nephrology GI prophylaxis Protonix and DVT prophylaxis subcu heparin I performed an examination of the patient and discussed their management with the physician Refrigeration System Installer. I have reviewed the Physician Refrigeration System Installer's notes and agree with the documented findings and plan of care
[2019-03-14] MEDS: MELATONIN 1 MG TAB PO SCH (20:27)
--- NOTE | 2019-03-14 23:32 | PN ---
PROGRESS NOTE DATE OF SERVICE: 03/14/2019. REASON FOR FOLLOWUP VISIT: E. coli urinary tract infection. INTERVAL HISTORY: The patient is currently afebrile. The patient is breathing comfortably. The patient denies having any chest pain. No shortness of breath. No cough. No nausea, vomiting, no abdominal pain, no diarrhea. PHYSICAL EXAMINATION: Blood pressure is 161/78 with a pulse of 86, temperature 98.5. She is 100% on room air. General description is an elderly female up in the room in no distress. Respiratory system: Unlabored breathing with decreased breath sounds in the bases. No wheeze. Heart S1, S2. Regular rate and rhythm. ABDOMEN: Soft, no tenderness. LABS: Creatinine is down to 3.24. Urine is with E coli sensitive pathogen. DIAGNOSTIC IMPRESSION AND PLAN: Patient with an E coli urinary tract infection, which is a sensitive pathogen. The patient is currently covered with Rocephin that will be transitioned to oral antibiotic on discharge. Continue supportive care. MMODL / IJN: [id number] /
[2019-03-15] MEDS: PANTOPRAZOLE 40 MG/10 ML VIAL IV SCH (07:47)
[2019-03-15] MEDS: HEPARIN SODIUM,PORCINE 5,000 UNIT/ML 1 ML VIAL SQ SCH ×2 (07:48→22:54)
[2019-03-15 07:55] LABS: Basophils % (A) 1 %; Eosinophils # (A) 0.2 k/uL (0-0.7); Eosinophils % (A) 2 %; HCT 31.8 % (34.0-46.0); HGB 10.7 gm/dL (11.4-16.0); Lymphocytes % (A) 24 %; MCH 29.1 pg (25.0-35.0); MCHC 33.7 g/dL (31.0-37.0); MCV 86.4 fL (80.0-100.0); Mean Platelet Volume 8.2; Monocytes # (A) 0.5 k/uL (0-1.0); Monocytes % (A) 6 %; Neutrophils # (A) 5.6 k/uL (1.3-7.7); Neutrophils % (A) 66 %; Platelet Count 291 k/uL (150-450); RBC 3.68 m/uL (3.80-5.40); RDW 13.9 % (11.5-15.5); WBC 8.4 k/uL (3.8-10.6)
[2019-03-15 08:09] LABS: Calcium 8.6 mg/dL (8.4-10.2); Magnesium 1.6 mg/dL (1.6-2.3); Potassium 3.8 mmol/L (3.5-5.1); Total Bilirubin 0.6 mg/dL (0.2-1.3); Total Protein 5.1 g/dL (6.3-8.2)
--- NOTE | 2019-03-15 09:47 | P.PN ---
Subjective Patient is seen in follow-up for acute kidney injury. Renal function is improving. Creatinine 2.35 today. She has been voiding. Currently on full liquid diet. No nausea or vomiting. No abdominal pain. Vital signs are stable. General: The patient appeared well nourished and normally developed. HEENT: Head exam is unremarkable. Neck is without jugular venous distension. LUNGS: Lungs are clear to auscultation and percussion. Breath sounds decreased. HEART: Rate and Rhythm are regular. First and second heart sounds normal. No murmurs, rubs or gallops. ABDOMEN: Abdominal exam reveals normal bowel sounds. Non-tender and non- distended. No evidence of peritonitis. EXTREMITITES: No clubbing, cyanosis, or edema. Objective - Vital Signs Vital signs: Vital Signs Temp 98.8 F 03/15/19 07:00 Pulse 86 03/15/19 07:00 Resp 16 03/15/19 07:00 BP 130/56 03/15/19 07:00 Pulse Ox 97 03/15/19 07:00 Intake & Output 03/14/19 03/15/19 03/15/19 18:59 06:59 18:59 Intake Total 950 Balance 950 Intake: IV 950 Dextrose 5% in Water 1, 600 000 ml @ 100 mls/hr IV . [id number] BIJAL with Sodium Bicarb (1 Meq/ml) 150 ml Rx#:[id number] Sodium Chloride 0.9% 1, 300 000 ml @ 75 mls/hr IV . [id number] BIJAL Rx#:[id number] cefTRIAXone 1 gm In 50 Sodium Chloride 0.9% 50 ml @ 100 mls/hr IVPB Q24HR BIJAL Rx#:[id number] Other: Voiding Method Toilet Toilet # Bowel Movements 1 1 - Labs CBC & Chem 7: 03/15/19 07:09 03/15/19 07:09 Labs: Abnormal Lab Results - Last 24 Hours (Table) 03/15/19 03/15/19 Range/Units 07:09 07:09 RBC 3.68 L (3.80-5.40) m/uL Hgb 10.7 L (11.4-16.0) gm/dL Hct 31.8 L (34.0-46.0) % Chloride 111 H (98-107) mmol/L BUN 30 H (7-17) mg/dL Creatinine 2.35 H (0.52-1.04) mg/dL Total Protein 5.1 L (6.3-8.2) g/dL Albumin 3.0 L (3.5-5.0) g/dL Microbiology - Last 24 Hours (Table) 03/12/19 19:25 Urine Culture - Final Urine,Voided Escherichia coli Assessment and Plan Plan: Assessment: 1. Acute kidney injury mostly prerenal secondary to intravascular volume depletion improving with IV hydration. Creatinine 2.35 today. Trace proteinuria noted on UA. 2. Metabolic acidosis secondary to acute kidney injury and GI losses. Status post bicarb drip. Resolved. 3. Hypokalemia secondary to intracellular shifting from IV bicarb. Magnesium normal. Status post replacement. Better. 4. UTI with urine culture positive for E. coli maintained on IV antibiotics. Plan: Maintain normal saline at 75 mL an hour. Repeat electrolytes in the morning.
[2019-03-15] MEDS ORDERED: HYDROCORTISONE 1% CREAM 30 GM TUBE TOPICAL PRN (10:19)
[2019-03-15] MEDS: SODIUM CHLORIDE 0.9% 1,000 ML IV SCH (13:13)
--- NOTE | 2019-03-15 14:05 | P.PN ---
Subjective Progress Note Date: 03/15/19 This is a 73-year-old female presented to the hospital with nausea vomiting and diarrhea and evidence of acute kidney injury with dehydration. She was covered by Dr. SERAFIN Galvez over the weekend for Dr. Jones. Patient had similar symptoms about a month ago. At this time she's had no further vomiting. Her stools are becoming more formed. She denies any abdominal pain. She is being treated for UTI and gastroenteritis. Urine culture growing gram-negative bacilli. She is currently on Rocephin. She's been followed by nephrology and infectious disease. Creatinine is down to 3.24. Potassium is low at 3.2. Patient did have a computed tomography scan of the abdomen completed showing left-sided co lonic diverticulosis with no acute diverticulitis. There was some liquid stool within the right side of the colon that may reflect enteritis. Gallbladder sludge but no evidence of acute cholecystitis. And a small to moderate sized hiatal hernia. 03/15/2019 Patient denies any abdominal pain. She is tolerating a full liquid diet. Has not had any vomiting for a few days. Stools are now formed. Creatinine is trending down to 2.35. Is on Rocephin for UTI with E. coli. Followed by nephrology and infectious disease. She is complaining of itching along the right ear with some dry skin. Objective - Vital Signs Vital signs: Vital Signs Temp 98.8 F 03/15/19 07:00 Pulse 86 03/15/19 07:00 Resp 16 03/15/19 07:00 BP 130/56 03/15/19 07:00 Pulse Ox 97 03/15/19 07:00 Intake & Output 03/14/19 03/15/19 03/15/19 18:59 06:59 18:59 Intake Total 950 Balance 950 Intake: IV 950 Dextrose 5% in Water 1, 600 000 ml @ 100 mls/hr IV . [id number] BIJAL with Sodium Bicarb (1 Meq/ml) 150 ml Rx#:[id number] Sodium Chloride 0.9% 1, 300 000 ml @ 75 mls/hr IV . [id number] BIJAL Rx#:[id number] cefTRIAXone 1 gm In 50 Sodium Chloride 0.9% 50 ml @ 100 mls/hr IVPB Q24HR BIJAL Rx#:[id number] Other: Voiding Method Toilet Toilet # Voids 1 # Bowel Movements 1 1 - Exam Head normocephalic Neck supple Lungs clear to auscultation bilaterally no wheezing or crackles Heart regular rate and rhythm S1-S2, no rub or gallop Abdomen is soft nontender nondistended positive bowel sounds no hepatosplenomegaly Extremities no edema Neuro alert and orientated to 3 - Labs CBC & Chem 7: 03/15/19 07:09 03/15/19 07:09 Labs: Abnormal Lab Results - Last 24 Hours (Table) 03/15/19 03/15/19 Range/Units 07:09 07:09 RBC 3.68 L (3.80-5.40) m/uL Hgb 10.7 L (11.4-16.0) gm/dL Hct 31.8 L (34.0-46.0) % Chloride 111 H (98-107) mmol/L BUN 30 H (7-17) mg/dL Creatinine 2.35 H (0.52-1.04) mg/dL Total Protein 5.1 L (6.3-8.2) g/dL Albumin 3.0 L (3.5-5.0) g/dL Microbiology - Last 24 Hours (Table) 03/12/19 19:25 Urine Culture - Final Urine,Voided Escherichia coli Assessment and Plan Assessment: 1. Nausea, vomiting and diarrhea likely secondary to a gastroenteritis. Patient currently on IV fluids. Symptoms have improved. We'll monitor. Continue with the Zofran as needed. advance diet to regular 2. Urinary tract infection: Urine culture growing Ecoli. Continue Rocephin. ID following 3. Acute kidney injury likely prerenal secondary to intravascular volume depletion. Creatinine on admission was around 5. Creatinine today is 2.35. Continue with IV fluids. Nephrology is following. 4. Metabolic acidosis secondary to acute kidney injury and GI losses. Nephrology is following. Initially was on a sodium bicarbonate drip. This was discontinued yesterday by nephrology 5. Hypokalemia: Magnesium level is normal. improved with potassium supplement 6. Dermatitis of the right ear had hydrocortisone cream GI prophylaxis Protonix and DVT prophylaxis subcu heparin I performed an examination of the patient and discussed their management with the physician Warehouse Helper. I have reviewed the Physician Warehouse Helper's notes and agree with the documented findings and plan of care
[2019-03-15] MEDS: MELATONIN 1 MG TAB PO SCH (22:54)
--- NOTE | 2019-03-15 23:51 | PN ---
PROGRESS NOTE DATE OF SERVICE: 03/15/2019 REASON FOR FOLLOWUP: Urinary tract infection. INTERVAL HISTORY: The patient is currently afebrile. The patient is breathing comfortably. Denies having any chest pain, shortness of breath or cough. No nausea or vomiting. No abdominal pain or diarrhea. PHYSICAL EXAMINATION: Blood pressure is 156/83 with a pulse of 82, temperature 99.3. She is 96% on room air. General description is an elderly female lying in bed in no distress. RESPIRATORY SYSTEM: Unlabored breathing. Clear to auscultation anteriorly. HEART: S1, S2. Regular rate and rhythm. ABDOMEN: Soft. No tenderness. EXTREMITIES: No edema of the feet. LABS: Hemoglobin is 10.7, white count 8.4, BUN of 30, creatinine 2.35. Urine has been E coli as a sensitive pathogen. DIAGNOSTIC IMPRESSION AND PLAN: Patient with Escherichia coli urinary tract infection, for which the patient is currently covered with Rocephin. That will be continued for now while inpatient. Will transition to oral antibiotic on discharge. Continue with supportive care. MMODL / IJN: [id number] /
[2019-03-16] MEDS: SODIUM CHLORIDE 0.9% 1,000 ML IV SCH ×3 (01:08→21:54)
[2019-03-16 08:41] LABS: Albumin 2.9 g/dL (3.5-5.0); Calcium 8.5 mg/dL (8.4-10.2); Magnesium 1.5 mg/dL (1.6-2.3); Potassium 3.5 mmol/L (3.5-5.1); Total Bilirubin 0.5 mg/dL (0.2-1.3); Total Protein 5.1 g/dL (6.3-8.2)
[2019-03-16] MEDS: HEPARIN SODIUM,PORCINE 5,000 UNIT/ML 1 ML VIAL SQ SCH ×2 (10:14→22:26)
[2019-03-16] MEDS: PANTOPRAZOLE 40 MG/10 ML VIAL IV SCH (10:14)
[2019-03-16] MEDS ORDERED: POTASSIUM CHLORIDE ER 20 MEQ TAB.ER PO STA (10:55)
--- NOTE | 2019-03-16 10:55 | P.PN ---
Subjective Patient is seen in follow-up for acute kidney injury. Renal function is improving. Creatinine 1.73 today. She has been voiding. Now on regular diet. Couldn't tolerate much of breakfast this morning but did have a good dinner last night. Vital signs are stable. General: The patient appeared well nourished and normally developed. HEENT: Head exam is unremarkable. Neck is without jugular venous distension. LUNGS: Lungs are clear to auscultation and percussion. Breath sounds decreased. HEART: Rate and Rhythm are regular. First and second heart sounds normal. No murmurs, rubs or gallops. ABDOMEN: Abdominal exam reveals normal bowel sounds. Non-tender and non- distended. No evidence of peritonitis. EXTREMITITES: No clubbing, cyanosis, or edema. Objective - Vital Signs Vital signs: Vital Signs Temp 99.0 F 03/16/19 07:00 Pulse 84 03/16/19 07:00 Resp 16 03/16/19 07:00 BP 153/76 03/16/19 07:00 Pulse Ox 98 03/16/19 07:00 Intake & Output 03/15/19 03/16/19 03/16/19 18:59 06:59 18:59 Output Total 100 Balance -100 Output: Urine 100 Other: Voiding Method Toilet Toilet # Voids 1 1 # Bowel Movements 1 - Labs CBC & Chem 7: 03/15/19 07:09 03/16/19 07:20 Labs: Abnormal Lab Results - Last 24 Hours (Table) 03/16/19 Range/Units 07:20 Chloride 112 H (98-107) mmol/L Carbon Dioxide 19 L (22-30) mmol/L BUN 22 H (7-17) mg/dL Creatinine 1.73 H (0.52-1.04) mg/dL Glucose 71 L (74-99) mg/dL Magnesium 1.5 L (1.6-2.3) mg/dL Total Protein 5.1 L (6.3-8.2) g/dL Albumin 2.9 L (3.5-5.0) g/dL Assessment and Plan Plan: Assessment: 1. Acute kidney injury mostly prerenal secondary to intravascular volume depletion improving with IV hydration. Creatinine 1.73 today. Trace proteinuria noted on UA. 2. Metabolic acidosis secondary to IVFs and GI losses. Status post bicarb drip. 3. Hypokalemia secondary to intracellular shifting from IV bicarb. Magnesium normal. Status post replacement. 4. UTI with urine culture positive for E. coli maintained on IV antibiotics. 5. Hypomagnesemia from poor oral intake. Plan: Decrease normal saline to 50 mL an hour. Encouraged oral intake. Replace potassium and magnesium. Repeat electrolytes in the morning. Anticipate discharge soon. Follow up outpatient in 2 weeks.
--- NOTE | 2019-03-16 12:00 | P.PN ---
Subjective Progress Note Date: 03/16/19 This is a 73-year-old female presented to the hospital with nausea vomiting and diarrhea and evidence of acute kidney injury with dehydration. She was covered by Dr. SERAFIN Galvez over the weekend for Dr. Jones. Patient had similar symptoms about a month ago. At this time she's had no further vomiting. Her stools are becoming more formed. She denies any abdominal pain. She is being treated for UTI and gastroenteritis. Urine culture growing gram-negative bacilli. She is currently on Rocephin. She's been followed by nephrology and infectious disease. Creatinine is down to 3.24. Potassium is low at 3.2. Patient did have a computed tomography scan of the abdomen completed showing left-sided co lonic diverticulosis with no acute diverticulitis. There was some liquid stool within the right side of the colon that may reflect enteritis. Gallbladder sludge but no evidence of acute cholecystitis. And a small to moderate sized hiatal hernia. 03/15/2019 Patient denies any abdominal pain. She is tolerating a full liquid diet. Has not had any vomiting for a few days. Stools are now formed. Creatinine is trending down to 2.35. Is on Rocephin for UTI with E. coli. Followed by nephrology and infectious disease. She is complaining of itching along the right ear with some dry skin. On 03/16/2019 patient is alert and oriented 3. Creatinine improving to 1.73 bun 22. Patient is currently on regular diet. Patient reports she did have some nausea after dinner last night. Still having some loose stools remains on Rocephin for urinary tract infection. Patient denies any chest pain. Patient denies shortness of breath. Patient denies any urinary burning or frequency. Objective - Vital Signs Vital signs: Vital Signs Temp 99.0 F 03/16/19 07:00 Pulse 84 03/16/19 07:00 Resp 16 03/16/19 07:00 BP 153/76 03/16/19 07:00 Pulse Ox 98 03/16/19 07:00 Intake & Output 03/15/19 03/16/19 03/16/19 18:59 06:59 18:59 Output Total 100 Balance -100 Output: Urine 100 Other: Voiding Method Toilet Toilet Toilet # Voids 1 1 # Bowel Movements 1 - Exam Head normocephalic Neck supple Lungs clear to auscultation bilaterally no wheezing or crackles Heart regular rate and rhythm S1-S2, no rub or gallop Abdomen is soft nontender nondistended positive bowel sounds no hepatosplenomegaly Extremities no edema Neuro alert and orientated to 3 - Labs CBC & Chem 7: 03/15/19 07:09 03/16/19 07:20 Labs: Abnormal Lab Results - Last 24 Hours (Table) 03/16/19 Range/Units 07:20 Chloride 112 H (98-107) mmol/L Carbon Dioxide 19 L (22-30) mmol/L BUN 22 H (7-17) mg/dL Creatinine 1.73 H (0.52-1.04) mg/dL Glucose 71 L (74-99) mg/dL Magnesium 1.5 L (1.6-2.3) mg/dL Total Protein 5.1 L (6.3-8.2) g/dL Albumin 2.9 L (3.5-5.0) g/dL Assessment and Plan Assessment: 1. Nausea, vomiting and diarrhea likely secondary to a gastroenteritis. Patient currently on IV fluids. Symptoms have improved. We'll monitor. Continue with the Zofran as needed. advance diet to regular 2. Urinary tract infection: Urine culture growing Ecoli. Continue Rocephin. ID following 3. Acute kidney injury likely prerenal secondary to intravascular volume depletion. Creatinine on admission was around 5. Creatinine today is 2.35. Continue with IV fluids. Nephrology is following. Creatinine improving to 1.73 bun 22 2. Continue normal saline 4. Metabolic acidosis secondary to acute kidney injury and GI losses. Nephrology is following. Initially was on a sodium bicarbonate drip. This was discontinued yesterday by nephrology 5. Hypokalemia: Magnesium level is normal. improved with potassium supplement 6. Dermatitis of the right ear had hydrocortisone cream DVT prophylaxis heparin. GI prophylaxis Protonix I performed an examination of the patient and discussed their management with the Nurse Practitioner. I have reviewed the Nurse Practitioner's notes and agree with the documented findings and plan of care
[2019-03-16] MEDS: MAGNESIUM SULFATE-D5W PMX 1 GM in DEXTROSE/WATER 1 100ML.BAG IVPB SCH ×2 (12:34→13:22)
--- NOTE | 2019-03-16 17:25 | PN ---
PROGRESS NOTE DATE OF SERVICE: 03/16/2019 REASON FOR FOLLOWUP: Urinary tract infection. INTERVAL HISTORY: The patient is currently afebrile. The patient is breathing comfortably. The patient denies having any chest pain or shortness of breath or cough. No nausea. No vomiting. No abdominal pain or diarrhea. PHYSICAL EXAMINATION: Blood pressure is 153/76 with a pulse of 84, temperature of 99. She is 98% on room air. General description is an elderly female lying in bed in no distress. RESPIRATORY SYSTEM: Unlabored breathing. Clear to auscultation anteriorly. HEART: S1, S2. Regular rate and rhythm. ABDOMEN: Soft. No tenderness. LABS: Hemoglobin 10.7, white count 8.4, BUN of 22, creatinine 1.73. Urine with E coli. DIAGNOSTIC IMPRESSION AND PLAN: Patient with an Escherichia coli urinary tract infection, for which the patient is currently covered with Rocephin. Transition to a short course of oral antibiotic on discharge. Monitor her clinical course closely. MMODL / IJN: [id number] /
[2019-03-16] MEDS: MELATONIN 1 MG TAB PO SCH (22:26)
[2019-03-17 07:26] LABS: Basophils # (A) 0.1 k/uL (0-0.2); Basophils % (A) 1 %; Eosinophils # (A) 0.5 k/uL (0-0.7); Eosinophils % (A) 6 %; HCT 32.4 % (34.0-46.0); HGB 10.6 gm/dL (11.4-16.0); Lymphocytes % (A) 25 %; MCH 28.7 pg (25.0-35.0); MCHC 32.7 g/dL (31.0-37.0); MCV 87.7 fL (80.0-100.0); Mean Platelet Volume 8.6; Monocytes # (A) 0.4 k/uL (0-1.0); Monocytes % (A) 5 %; Neutrophils % (A) 61 %; Platelet Count 293 k/uL (150-450); RDW 14.1 % (11.5-15.5); WBC 8.1 k/uL (3.8-10.6)
[2019-03-17] MEDS ORDERED: PANTOPRAZOLE 40 MG TABLET PO SCH (07:30)
[2019-03-17 07:59] LABS: Calcium 8.6 mg/dL (8.4-10.2); Potassium 3.6 mmol/L (3.5-5.1); Total Bilirubin 0.5 mg/dL (0.2-1.3); Total Protein 5.3 g/dL (6.3-8.2)
[2019-03-17] MEDS: HEPARIN SODIUM,PORCINE 5,000 UNIT/ML 1 ML VIAL SQ SCH (08:39)
[2019-03-17 08:55] VITALS: RESP 16; TEMP 98.7
--- NOTE | 2019-03-17 09:20 | P.PN ---
Subjective Patient is seen in follow-up for acute kidney injury. Renal function is improving. Creatinine 1.24 today. She has been voiding. Now on regular diet. No vomiting or diarrhea today. Vital signs are stable. General: The patient appeared well nourished and normally developed. HEENT: Head exam is unremarkable. Neck is without jugular venous distension. LUNGS: Lungs are clear to auscultation and percussion. Breath sounds decreased. HEART: Rate and Rhythm are regular. First and second heart sounds normal. No murmurs, rubs or gallops. ABDOMEN: Abdominal exam reveals normal bowel sounds. Non-tender and non- distended. No evidence of peritonitis. EXTREMITITES: No clubbing, cyanosis, or edema. Objective - Vital Signs Vital signs: Vital Signs Temp 98.7 F 03/17/19 07:00 Pulse 80 03/17/19 07:00 Resp 16 03/17/19 07:00 BP 184/77 03/17/19 07:00 Pulse Ox 99 03/17/19 07:00 Intake & Output 03/16/19 03/17/19 03/17/19 18:59 06:59 18:59 Intake Total 780 Balance 780 Intake: Intake, IV Titration 200 Amount Magnesium Sulfate-D5w Pmx 200 1 gm In Dextrose/Water 1 100ml.bag @ 100 mls/hr IVPB Q1H COUNTS INCLUDE 234 BEDS AT THE [facility] Rx#: [id number] Oral 580 Other: Voiding Method Toilet Toilet # Voids 3 2 # Bowel Movements 1 - Labs CBC & Chem 7: 03/17/19 06:49 03/17/19 06:49 Labs: Abnormal Lab Results - Last 24 Hours (Table) 03/17/19 03/17/19 Range/Units 06:49 06:49 RBC 3.70 L (3.80-5.40) m/uL Hgb 10.6 L (11.4-16.0) gm/dL Hct 32.4 L (34.0-46.0) % Chloride 113 H (98-107) mmol/L Carbon Dioxide 20 L (22-30) mmol/L BUN 18 H (7-17) mg/dL Creatinine 1.24 H (0.52-1.04) mg/dL Total Protein 5.3 L (6.3-8.2) g/dL Albumin 3.0 L (3.5-5.0) g/dL Assessment and Plan Plan: Assessment: 1. Acute kidney injury mostly prerenal secondary to intravascular volume depletion improving with IV hydration. Creatinine 1.24 today. Trace proteinuria noted on UA. 2. Metabolic acidosis secondary to IVFs and GI losses. Status post bicarb drip. 3. Hypokalemia secondary to intracellular shifting from IV bicarb. Magnesium n ormal. Status post replacement. 4. UTI with urine culture positive for E. coli maintained on IV antibiotics. 5. Hypomagnesemia from poor oral intake. Status post replacement. Plan: Hep-Lock IV fluids. Stable for discharge from nephrology standpoint. Anticipate discharge soon. Follow up outpatient in 2 weeks.
[2019-03-17 11:00] VITALS: BP 173/89; PULSE 86
[2019-03-17] MEDS ORDERED: amLODIPine 5 MG TAB PO STA (13:25)
--- NOTE | 2019-03-17 13:58 | P.DS ---
Providers Date of admission: 03/13/19 14:30 Expected date of discharge: 03/17/19 Attending physician: Richard Jones Consults: 03/12/19 12:12 Consult Physician Urgent Consulting Provider: Lisy Bowens Consult Reason/Comments: n/v/d, tarik Do you want consulting provider notified?: Yes 03/12/19 16:31 Consult Physician Routine Consulting Provider: Rodger Chávez Consult Reason/Comments: possible infection Do you want consulting provider notified?: Yes Primary care physician: Debbie Plaza Hospital Course: discharge Diagnosis 1. Nausea, vomiting and diarrhea likely secondary to a gastroenteritis. Now resolved 2. Urinary tract infection: Urine culture growing Ecoli. Continue Cipro 500 mg twice a day for 5 more days 3. Acute kidney injury likely prerenal secondary to intravascular volume depletion. Creatinine on admission was around 5. Creatinine at discharge is down to 1.24 4. Metabolic acidosis secondary to acute kidney injury and GI losses. Nephrology is following. Treated with sodium bicarb drip 5. Hypokalemia: improved with potassium supplement 6. Dermatitis of the right ear had hydrocortisone cream 7. Hypomagnesemia: Magnesium yesterday was 1.5 patient received magnesium supplement. Repeat magnesium level is still pending 8. Anemia hemoglobin 10.6 likely diluted from IV fluids. Recommend rechecking CBC in 1 week. Iron studies have been ordered and are pending. Follow up with iron studies and office. Patient has had no active signs of bleeding. Hospital course This is a 73-year-old female presented to the hospital with nausea vomiting and diarrhea and evidence of acute kidney injury with dehydration. She was covered by Dr. SERAFIN Galvez over the weekend for Dr. Jones. Patient had similar symptoms about a month ago. At this time she's had no further vomiting. Her stools are becoming more formed. She denies any abdominal pain. She is being treated for UTI and gastroenteritis. Urine culture growing gram-negative bacilli. She is currently on Rocephin. She's been followed by nephrology and infectious disease. Creatinine is down to 3.24. Potassium is low at 3.2. Patient did have a computed tomography scan of the abdomen completed showing left-sided colonic diverticulosis with no acute diverticulitis. There was some liquid stool within the right side of the colon that may reflect enteritis. Gallbladder sludge but no evidence of acute cholecystitis. And a small to moderate sized hiatal hernia. 03/15/2019 Patient denies any abdominal pain. She is tolerating a full liquid diet. Has not had any vomiting for a few days. Stools are now formed. Creatinine is trending down to 2.35. Is on Rocephin for UTI with E. coli. Followed by nephrology and infectious disease. She is complaining of itching a long the right ear with some dry skin. On 03/16/2019 patient is alert and oriented 3. Creatinine improving to 1.73 bun 22. Patient is currently on regular diet. Patient reports she did have some nausea after dinner last night. Still having some loose stools remains on Rocephin for urinary tract infection. Patient denies any chest pain. Patient denies shortness of breath. Patient denies any urinary burning or frequency. 03/17/2019 patient is medical stable for discharge. Creatinine has improved down to 1.24. Nephrology has cleared her for discharge. Zestoretic was discontinued during this admission. Norvasc has been added for blood pressure control. Patient's acute kidney injury is likely due to intravascular volume depletion due to her gastroenteritis. Improved with IV fluids and holding the Zestoretic. Patient will follow up with nephrology in 2 weeks. Patient also treated for UTI with E. coli growing in the culture. She'll continue Cipro 500 mg twice a day for 5 more days to complete antibiotic treatment. Patient's vomiting and diarrhea have resolved and she is tolerating regular diet. She is medically stable for discharge. Please refer to chart for any further details. Check CBC,BMP and magnesium in 1 week Follow-up with Dr. Plaza in 1 week Follow-up with Dr. Marvin in 2 weeks I performed an examination of the patient and discussed their management with the physician Raw Scales Operator. I have reviewed the Physician Raw Scales Operator's notes and agree with the documented findings and plan of care Patient Condition at Discharge: Stable Plan - Discharge Summary Discharge Rx Participant: Yes New Discharge Prescriptions: New Ciprofloxacin HCl [Cipro] 500 mg PO Q12HR #10 tablet Hydrocortisone Cream [Hydrocortisone 1% Cream] 1 applic TOPICAL BID PRN #1 tube PRN Reason: Skin Irritation amLODIPine BESYLATE [Norvasc] 5 mg PO DAILY #30 tablet Continue Cholecalciferol [Vitamin D3 (25 Mcg = 1000 Iu)] 5,000 unit PO DAILY Discontinued Lisinopril-Hctz 20-25 mg [Zestoretic 20-25] 1 tab PO DAILY Discharge Medication List Cholecalciferol [Vitamin D3 (25 Mcg = 1000 Iu)] 5,000 unit PO DAILY 02/07/19 [History] Ciprofloxacin HCl [Cipro] 500 mg PO Q12HR #10 tablet 03/17/19 [Rx] Hydrocortisone Cream [Hydrocortisone 1% Cream] 1 applic TOPICAL BID PRN #1 tube 03/17/19 [Rx] amLODIPine BESYLATE [Norvasc] 5 mg PO DAILY #30 tablet 03/17/19 [Rx] Follow up Appointment(s)/Referral(s): Debbie Plaza MD [Primary Care Provider] - 1 Week Ambulatory/Diagnostic Orders: Complete Blood Count w/diff [LAB.AMB] Time Frame: 1 Week, Location: None Selected Activity/Diet/Wound Care/Special Instructions: Diet:Regular Activity: as tolerated Discharge Disposition: HOME SELF-CARE
--- NOTE | 2019-03-17 16:35 | PN ---
PROGRESS NOTE DATE OF SERVICE: 03/17/2019 REASON FOR FOLLOW UP: Urinary tract infection. INTERVAL HISTORY: The patient is currently afebrile. The patient is breathing comfortably. She denies having any chest pain, shortness of breath, or cough. No nausea or vomiting. No abdominal pain or diarrhea. PHYSICAL EXAMINATION: Blood pressure 173/90 with a pulse of 83, temperature of 98. General description is an elderly female lying in bed in no distress. RESPIRATORY SYSTEM: Unlabored breathing. Clear to auscultation anteriorly. HEART: S1, S2. Regular rate and rhythm. LABS: Hemoglobin 10.6, white count 8.1, BUN of 18, creatinine of 1.24. DIAGNOSTIC IMPRESSION AND PLAN: Patient with an Escherichia coli urinary tract infection. Patient shows overall clinical improvement. The patient to resume oral Cipro 500 mg twice a day for about five days and continue with supportive care. MMODL / IJN: [id number] /
[2019-03-17 17:08] LABS: % Iron Saturation 38.77 (12.00-45.00)
[2019-03-17 17:17] LABS: Ferritin 175.3 ng/mL (10.0-291.0)
== END 2019-03-17 14:27 | disposition home or self-care (01) | DRG 683 ==
LOC: EC 09:43 → 4SSUR 12:12 → OBSVTOIN 03-13 14:30
PROVIDERS: ADMIT Internal Medicine; ATTEND Internal Medicine
DX: N17.9 Acute kidney failure, unspecified (principal); E87.2 Acidosis; N39.0 Urinary tract infection, site not specified; J44.9 Chronic obstructive pulmonary disease, unspecified; B96.20 Unspecified Escherichia coli [E. coli] as the cause of diseases classified elsewhere; D64.9 Anemia, unspecified; E16.2 Hypoglycemia, unspecified; E83.42 Hypomagnesemia; E86.0 Dehydration; E87.6 Hypokalemia; I10 Essential (primary) hypertension; K44.9 Diaphragmatic hernia without obstruction or gangrene; K52.9 Noninfective gastroenteritis and colitis, unspecified; K57.30 Diverticulosis of large intestine without perforation or abscess without bleeding; K82.8 Other specified diseases of gallbladder; L30.9 Dermatitis, unspecified; R09.02 Hypoxemia; Z88.2 Allergy status to sulfonamides; Z79.899 Other long term (current) drug therapy
CPT/HCPCS: 36415; 71046; 74176; 80048; 80053; 81001; 82550; 82728; 83540; 83550; 83605; 83690; 83735; 83880; 84100; 84132; 84484; 85025; 85610; 85730; 87077; 87086; 87186; 93005; 94760; 96361; 96365; 96375; 96376; 99285

== ENCOUNTER 2019-04-07 05:25 | Inpatient (IN) | payer MEDICARE ==
--- NOTE | 2019-04-07 05:42 | ED ---
Nausea/Vomiting/Diarrhea HPI - General Chief complaint: Nausea/Vomiting/Diarrhea Stated complaint: Flu Like Symptoms Time Seen by Provider: 04/07/19 05:42 Source: patient Mode of arrival: EMS Limitations: no limitations - History of Present Illness Initial comments: Phong is a 73-year-old female with recent admissions the hospital for E. coliUTI Discharge: HOME CARE INSTRUCTIONS - you were prescribed antibiotics, take them exactly as your caregiver instructs you. Finish the medication even if you feel better! Drink enough water and fluids to keep your urine clear or pale yellow. Avoid caffeine, tea, and carbonated beverages - these can irritate your bladder. Empty your bladder often. Avoid holding urine for long periods of time. Empty your bladder before and after sexual intercourse. After a bowel movement, women should cleanse from front to back. Use each tissue only once. SEEK MEDICAL CARE IF: You have back pain. You develop a fever. Your symptoms do not begin to resolve within 3 days. SEEK IMMEDIATE MEDICAL CARE IF: You have severe back pain or lower abdominal pain. You develop chills. You have nausea or vomiting. You have continued burning or discomfort with urination. For which she had broad- spectrum antibiotics. The patient presents to the emergency department today via ambulance for evaluation of dehydration nausea, vomiting and diarrhea. Patient reports that she developed diarrhea approximately a day and a half ago. She was seen and evaluated in her primary care office yesterday and after discussion about risks factors having recently been on antibiotics there is high concern that she may have developed C. diff diarrhea therefore she was prescribed Flagyl which she began taking yesterday. Patient reports that yest afternoon she began experiencing nausea and vomiting she's been unable to keep down any oral intake overnight. Patient states that with her previous admission she has had kidney damage and was told that if she become any more dehydrated she will need dialysis therefore she didn't want to wait at home to see if she got better and came to the ER for evaluation. Patient reports she did receive her flu vaccine this year. - Related Data Home Medications Medication Instructions Recorded Confirmed Cholecalciferol [Vitamin D3 (25 5,000 unit PO DAILY 02/07/19 04/07/19 Mcg = 1000 Iu)] L.acidoph,Paracasei, B.lactis 1 cap PO DAILY 04/07/19 04/07/19 [Probiotic] Lisinopril-Hctz 10-12.5 mg 1 tab PO DAILY 04/07/19 04/07/19 [Zestoretic 10-12.5] metroNIDAZOLE [Flagyl] 500 mg PO TID 04/07/19 04/07/19 Allergies Allergy/AdvReac Type Severity Reaction Status Date / Time Sulfa (Sulfonamide Allergy Rash/Hives Verified 04/07/19 07:34 Antibiotics) amlodipine [From Norvasc] AdvReac Swelling Verified 04/07/19 07:42 Review of Systems ROS Statement: Those systems with pertinent positive or pertinent negative responses have been documented in the HPI. ROS Other: All systems not noted in ROS Statement are negative. Past Medical History Past Medical History: Hypertension Additional Past Medical History / Comment(s): fungal infection feet 2017 History of Any Multi-Drug Resistant Organisms: None Reported Additional Past Surgical History / Comment(s): laparotomy d/t PID 1990 Past Anesthesia/Blood Transfusion Reactions: No Reported Reaction Past Psychological History: No Psychological Hx Reported Smoking Status: Never smoker Past Alcohol Use History: None Reported Past Drug Use History: None Reported - Past Family History Mother Family Medical History: Cancer Additional Family Medical History / Comment(s): brain stem tumor General Exam - General Exam Comments Initial Comments: Physical Exam GENERAL: Elderly female, appears dehydrated Heaving into vomit basin HENT: Normocephalic, Atraumatic. Dry oral mucosa EYES: PERRL, EOMI PULMONARY: Unlabored respirations. No audible rales rhonchi or wheezing was noted. CARDIOVASCULAR: There is a regular rate and rhythm without any murmurs gallops or rubs. ABDOMEN: Soft and nontender with normal bowel sounds. SKIN: Skin is dry : Deferred NEUROLOGIC: Patient is alert and oriented x3. Moving all extremities spontaneously MUSCULOSKELETAL: Normal extremities with adequate strength and full range of motion. No lower extremity swelling or edema. No calf tenderness. PSYCHIATRIC: Normal psychiatric evaluation. Limitations: no limitations Course Vital Signs 04/07/19 05:31 Temperature 98.3 F Pulse Rate 104 H Respiratory 18 Rate Blood Pressure 124/66 O2 Sat by Pulse 98 Oximetry Medical Decision Making - Medical Decision Making Patient was seen and evaluated history is obtained from the patient and review of medical record this is a 73-year-old female with recent urinary tract infection treated with antibiotics now has profuse diarrhea and appears quite dehydrated she also has some nausea and vomiting and sinus. Workup will be initiated including swabs for influenza and testing for C. diff diarrhea Patient received oral Zofran in route to the hospital but continues to vomit she received a dose of IV friend and IV fluids Labs resulted with leukocytosis acute kidney injury Patient care was discussed with admitting physician Dr. Jones who agrees with plan for admission for acute kidney injury, need for IV fluid resuscitation. At the time of admission urinalysis was pending as was C. diff. Given the concern for C. diff we will not treat with any in. Antibiotics at this time. - Lab Data Result diagrams: 04/07/19 06:10 04/07/19 06:10 Lab Results 04/07/19 04/07/19 04/07/19 Range/Units 06:10 06:10 06:10 WBC 13.4 H (3.8-10.6) k/uL RBC 4.77 (3.80-5.40) m/uL Hgb 13.8 D (11.4-16.0) gm/dL Hct 40.9 (34.0-46.0) % MCV 85.7 (80.0-100.0) fL MCH 28.9 (25.0-35.0) pg MCHC 33.7 (31.0-37.0) g/dL RDW 14.2 (11.5-15.5) % Plt Count 452 H (150-450) k/uL Neutrophils % 78 % Lymphocytes % 14 % Monocytes % 5 % Eosinophils % 1 % Basophils % 1 % Neutrophils # 10.5 H (1.3-7.7) k/uL Lymphocytes # 1.9 (1.0-4.8) k/uL Monocytes # 0.6 (0-1.0) k/uL Eosinophils # 0.1 (0-0.7) k/uL Basophils # 0.1 (0-0.2) k/uL PT (9.0-12.0) sec INR (<1.2) APTT (22.0-30.0) sec Sodium 137 (137-145) mmol/L Potassium 4.6 (3.5-5.1) mmol/L Chloride 101 (98-107) mmol/L Carbon Dioxide 19 L (22-30) mmol/L Anion Gap 17 mmol/L BUN 45 H (7-17) mg/dL Creatinine 2.35 H (0.52-1.04) mg/dL Est GFR (CKD-EPI)AfAm 23 (>60 ml/min/1.73 sqM) Est GFR (CKD-EPI)NonAf 20 (>60 ml/min/1.73 sqM) Glucose 141 H (74-99) mg/dL Plasma Lactic Acid Yoel 2.7 H* (0.7-2.0) mmol/L Calcium 10.7 H (8.4-10.2) mg/dL Total Bilirubin 1.0 (0.2-1.3) mg/dL AST 33 (14-36) U/L ALT 27 (4-34) U/L Alkaline Phosphatase 84 (38-126) U/L Total Protein 7.9 (6.3-8.2) g/dL Albumin 5.0 (3.5-5.0) g/dL Influenza Type A RNA (Not Detectd) Influenza Type B (PCR) (Not Detectd) 04/07/19 04/07/19 Range/Units 06:10 06:10 WBC (3.8-10.6) k/uL RBC (3.80-5.40) m/uL Hgb (11.4-16.0) gm/dL Hct (34.0-46.0) % MCV (80.0-100.0) fL MCH (25.0-35.0) pg MCHC (31.0-37.0) g/dL RDW (11.5-15.5) % Plt Count (150-450) k/uL Neutrophils % % Lymphocytes % % Monocytes % % Eosinophils % % Basophils % % Neutrophils # (1.3-7.7) k/uL Lymphocytes # (1.0-4.8) k/uL Monocytes # (0-1.0) k/uL Eosinophils # (0-0.7) k/uL Basophils # (0-0.2) k/uL PT 10.3 (9.0-12.0) sec INR 1.0 (<1.2) APTT 21.5 L (22.0-30.0) sec Sodium (137-145) mmol/L Potassium (3.5-5.1) mmol/L Chloride (98-107) mmol/L Carbon Dioxide (22-30) mmol/L Anion Gap mmol/L BUN (7-17) mg/dL Creatinine (0.52-1.04) mg/dL Est GFR (CKD-EPI)AfAm (>60 ml/min/1.73 sqM) Est GFR (CKD-EPI)NonAf (>60 ml/min/1.73 sqM) Glucose (74-99) mg/dL Plasma Lactic Acid Yoel (0.7-2.0) mmol/L Calcium (8.4-10.2) mg/dL Total Bilirubin (0.2-1.3) mg/dL AST (14-36) U/L ALT (4-34) U/L Alkaline Phosphatase (38-126) U/L Total Protein (6.3-8.2) g/dL Albumin (3.5-5.0) g/dL Influenza Type A RNA Not Detected (Not Detectd) Influenza Type B (PCR) Not Detected (Not Detectd) Disposition Clinical Impression: Dehydration, BO (acute kidney injury), Nausea & vomiting Disposition: ADMITTED IP TO THIS [facility] Condition: Serious Is patient prescribed a controlled substance at d/c from ED?: No Referrals: Debbie Plaza MD [Primary Care Provider] - 1-2 days
[2019-04-07] MEDS ORDERED: LIDOCAINE 1%-EPI 1:100,000 20 ML VIAL SQ STA (06:00)
[2019-04-07 06:31] LABS: Basophils # (A) 0.1 k/uL (0-0.2); Basophils % (A) 1 %; Eosinophils # (A) 0.1 k/uL (0-0.7); Eosinophils % (A) 1 %; HCT 40.9 % (34.0-46.0); Lymphocytes # (A) 1.9 k/uL (1.0-4.8); Lymphocytes % (A) 14 %; MCH 28.9 pg (25.0-35.0); MCHC 33.7 g/dL (31.0-37.0); MCV 85.7 fL (80.0-100.0); Mean Platelet Volume 7.7; Monocytes # (A) 0.6 k/uL (0-1.0); Monocytes % (A) 5 %; Neutrophils # (A) 10.5 k/uL (1.3-7.7); Neutrophils % (A) 78 %; Platelet Count 452 k/uL (150-450); RBC 4.77 m/uL (3.80-5.40); RDW 14.2 % (11.5-15.5); WBC 13.4 k/uL (3.8-10.6)
[2019-04-07 06:34] LABS: HGB 13.8 gm/dL (11.4-16.0)
[2019-04-07] MEDS ORDERED: ONDANSETRON 4 MG/2 ML VIAL IVP STA (06:35)
[2019-04-07] MEDS: SODIUM CHLORIDE 0.9% 500 ML 500 ML IV SCH (06:35)
[2019-04-07 06:38] LABS: Calcium 10.7 mg/dL (8.4-10.2); Potassium 4.6 mmol/L (3.5-5.1); Total Protein 7.9 g/dL (6.3-8.2)
[2019-04-07 06:49] LABS: Prothrombin Time 10.3 sec (9.0-12.0)
[2019-04-07 06:54] LABS: Partial Thromboplastin Time 21.5 sec (22.0-30.0)
[2019-04-07] MEDS ORDERED: ACETAMINOPHEN TAB 325 MG TAB PO PRN (07:20)
[2019-04-07] MEDS ORDERED: NALOXONE 0.4 MG/ML 1 ML VIAL IV PRN (07:20)
[2019-04-07] MEDS ORDERED: ONDANSETRON 4 MG/2 ML VIAL IVP PRN (07:20)
[2019-04-07] MEDS ORDERED: IBUPROFEN 400 MG TAB PO PRN (07:20)
[2019-04-07] MEDS ORDERED: SODIUM CHLORIDE 0.9% 1,000 ML IV ONE (07:45)
[2019-04-07] MEDS: SODIUM CHLORIDE 0.9% 1,000 ML IV SCH ×3 (08:38→20:21)
[2019-04-07 10:21] LABS: Appearance,Urine Cloudy (Clear); Bacteria,Urine Rare /hpf; Bilirubin,Urine Negative (Negative); Blood,Urine Negative (Negative); Color,Urine Yellow; Glucose,Urine (UA) Negative (Negative); Hyaline Casts,Urine 120 /lpf (0-2); Ketones,Urine 1+ (Negative); Leukocyte Esterase,Urine Small (Negative); Mucus,Urine Rare /hpf; Nitrite,Urine Negative (Negative); Protein,Urine Trace (Negative); RBC,Urine <1 /hpf (0-5); Specific Gravity,Urine 1.017 (1.001-1.035); Squamous Epithelial Cell,Urine 1 /hpf (0-4); Urobilinogen,Urine <2.0 mg/dL (<2.0); WBC,Urine 3 /hpf (0-5)
[2019-04-07 13:32] LABS: Amylase 126 U/L (30-110)
--- NOTE | 2019-04-07 14:34 | P.HPIM ---
History of Present Illness H&P Date: 04/07/19 Chief Complaint: nausea, vomiting Patient is a 73-year-old female seen today in the emergency department following transportation hospital by ambulance. Patient states that she began to feel ill yesterday on 04/06/2019 with nausea vomiting and diarrhea. Patient states she does not keep any food down or liquids. Patient was admitted to the hospital on acute kidney injury with dehydration and UTI. Patient was treated with antibiotics and discharged home on 03/17/2019. Patient followed up outpatient with Dr. Plaza and was seen in her office on 04/06/2019 with complaints of diarrhea. With recent antibiotic use patient was started on Flagyl prophylactically for C. diff. Patient states this morning she began to feel more ill and felt as if she was going to pass out. This is when patient called ambulance for assistance. Influenza testing was negative. Patient is found to have a creatinine of 2.35 BUN 45. Patient has elevated white count of 13.4 neutrophils, 10.5, lactic acid 2.7. C. diff was negative. Patient has known history of acute kidney injury, hypertension. Home medications resumed. Infectious disease and nephrology service is c onsulted.Patient denies being recently ill, being exposed to anybody with who has been ill, patient denies any fever or chills. Patient denies any urinary burning or frequency symptoms. Stool cultures pending amylase and lipase pending. Review of Systems Please see HPI otherwise unremarkable Past Medical History Past Medical History: Hypertension Additional Past Medical History / Comment(s): Pt recently admitted to [facility] on 03/13/19 with N/V/D, gastroenteritis, UTI, acute kidney injury, hypokalemia, de rmatitis R external ear. Other hx: Diverticulosis, fungal infection feet 2017 History of Any Multi-Drug Resistant Organisms: None Reported Past Surgical History: Adenoidectomy, Tonsillectomy Additional Past Surgical History / Comment(s): laparotomy d/t PID 1990, colonoscopy in 2015, bilateral cataract removals/lens implants. Past Anesthesia/Blood Transfusion Reactions: No Reported Reaction Additional Past Anesthesia/Blood Transfusion Reaction / Comment(s): Pt believes she received blood in the past without reaction. Pt has clausterphobia. Smoking Status: Former smoker - Past Family History Mother Family Medical History: Cancer Additional Family Medical History / Comment(s): brain stem cancerous tumor Father Family Medical History: No Reported History Additional Family Medical History / Comment(s): Father was healthy and lived to be . Medications and Allergies Home Medications Medication Instructions Recorded Confirmed Type Cholecalciferol [Vitamin D3 (25 5,000 unit PO DAILY 02/07/19 04/07/19 History Mcg = 1000 Iu)] L.acidoph,Paracasei, B.lactis 1 cap PO DAILY 04/07/19 04/07/19 History [Probiotic] Lisinopril-Hctz 10-12.5 mg 1 tab PO DAILY 04/07/19 04/07/19 History [Zestoretic 10-12.5] metroNIDAZOLE [Flagyl] 500 mg PO TID 04/07/19 04/07/19 History Allergies Allergy/AdvReac Type Severity Reaction Status Date / Time Sulfa (Sulfonamide Allergy Rash/Hives Verified 04/07/19 07:34 Antibiotics) amlodipine [From [facility]] AdvReac Swelling Verified 04/07/19 07:42 Physical Exam Vitals: Vital Signs Temp Pulse Resp BP Pulse Ox 04/07/19 08:01 82 18 135/77 97 04/07/19 05:31 98.3 F 104 H 18 124/66 98 Intake and Output 04/06/19 04/07/19 04/07/19 22:59 06:59 14:59 Other: Weight 50.802 kg 50.802 kg Head normocephalic Neck supple Lungs clear to auscultation bilaterally no wheezing or crackles Heart regular rate and rhythm S1-S2, no rub or gallop Abdomen is soft nontender nondistended positive bowel sounds no hepatosplenomegaly Extremities no edema Neuro alert and orientated to 3 Results CBC & Chem 7: 04/07/19 06:10 04/07/19 06:10 Labs: Abnormal Lab Results - Last 24 Hours (Table) 04/07/19 04/07/19 04/07/19 Range/Units 06:10 06:10 06:10 WBC 13.4 H (3.8-10.6) k/uL Plt Count 452 H (150-450) k/uL Neutrophils # 10.5 H (1.3-7.7) k/uL APTT (22.0-30.0) sec Carbon Dioxide 19 L (22-30) mmol/L BUN 45 H (7-17) mg/dL Creatinine 2.35 H (0.52-1.04) mg/dL Glucose 141 H (74-99) mg/dL Plasma Lactic Acid Yoel 2.7 H* (0.7-2.0) mmol/L Calcium 10.7 H (8.4-10.2) mg/dL Procalcitonin (0.02-0.09) ng/mL Urine Appearance (Clear) Urine Protein (Negative) Urine Ketones (Negative) Ur Leukocyte Esterase (Negative) Urine Bacteria (None) /hpf Hyaline Casts (0-2) /lpf Urine Mucus (None) /hpf 04/07/19 04/07/19 04/07/19 Range/Units 06:10 06:10 08:00 WBC (3.8-10.6) k/uL Plt Count (150-450) k/uL Neutrophils # (1.3-7.7) k/uL APTT 21.5 L (22.0-30.0) sec Carbon Dioxide (22-30) mmol/L BUN (7-17) mg/dL Creatinine (0.52-1.04) mg/dL Glucose (74-99) mg/dL Plasma Lactic Acid Yoel (0.7-2.0) mmol/L Calcium (8.4-10.2) mg/dL Procalcitonin 0.22 H (0.02-0.09) ng/mL Urine Appearance Cloudy H (Clear) Urine Protein Trace H (Negative) Urine Ketones 1+ H (Negative) Ur Leukocyte Esterase Small H (Negative) Urine Bacteria Rare H (None) /hpf Hyaline Casts 120 H (0-2) /lpf Urine Mucus Rare H (None) /hpf Thrombosis Risk Factor Assmnt - Choose All That Apply Any of the Below Risk Factors Present?: Yes Other Risk Factors: Yes Each Risk Factor Represents 2 Points: Age 61-74 years Other congenital or acquired thrombophilia - If yes, enter type in comment: No Thrombosis Risk Factor Assessment Total Risk Factor Score: 2 Thrombosis Risk Factor Assessment Level: Low Risk Assessment and Plan Assessment: 1. Nausea vomiting and diarrhea. Stool for C. diff negative. Influenza negative. Infectious disease will be consulted. Stool cultures ordered. Abdominal ultrasound ordered. Amylase lipase levels ordered 2. Acute kidney injury secondary to dehydration and intravascular depletion. Nephrology services consulted. Continue fluids. Creatinine elevated at 2.35 and bun 45 3. Elevated lactic acid likely secondary to dehydration. Initial lactic acid 2. 7 repeat 1.2 4. Recent urinary tract infection. Patient was recently discharged with urinary tract infection. Will order urine culture at this time 5. History of essential hypertension: Resume 6. History of diverticulosis GI prophylaxis Protonix. DVT prophylaxis heparin Time with Patient: Greater than 30 (Greater than 60% of the total time spent in counseling and coordination of care. I performed an examination of the patient and discussed their management with the Nurse Practitioner. I have reviewed the Nurse Practitioner's notes and agree with the documented findings and plan of care)
[2019-04-07] MEDS: HEPARIN SODIUM,PORCINE 5,000 UNIT/ML 1 ML VIAL SQ SCH (20:21)
[2019-04-07] MEDS: MELATONIN 3 MG TABLET PO SCH (20:21)
[2019-04-07] MEDS: metroNIDAZOLE 500 MG TAB PO SCH (23:17)
--- NOTE | 2019-04-08 06:24 | CONS ---
CONSULTATION DATE OF SERVICE: 04/07/2019 REASON FOR CONSULTATION: Diarrhea. HISTORY OF PRESENT ILLNESS: The patient is a 73-year-old female who was recently admitted to this facility with acute nausea, vomiting, diarrhea. The patient did have a component of dehydration, also with evidence of E coli UTI. The patient subsequently improved and was discharged home on oral antibiotics, which the patient has completed. Patient now presented back to [facility] ER with chief complaints of diarrhea that started about a day and a half ago. The patient did have multiple loose stools, vomiting and has been complaining of some crampy lower abdominal pain, intensity about 3 to 4 out of 10 and no radiation. The patient apparently has been evaluated by the primary care physician and the patient started on oral Flagyl with concern for possible C difficile. However, the patient started having nausea and apparently also had vomiting unable to keep anything down for which the patient was brought to the ER. On arrival to the ER, patient has been afebrile. White count was elevated at 13.4, creatinine was 2.35, lactic acid 2.7. Urine was negative. Stool for C difficile negative. Infectious Disease has been consulted for further recommendations regarding her diarrhea. REVIEW OF SYSTEMS: Positive points have been mentioned in HPI. Rest of the systems negative. PAST MEDICAL HISTORY: Hypertension, renal insufficiency, UTI and diverticulitis. PAST SURGICAL HISTORY: Adenoidectomy, tonsillectomy, colonoscopy. SOCIAL HISTORY: Remote history of smoking. No drinking or drug use. FAMILY HISTORY: Mother with history of brainstem cancer. Father was healthy and lived to be [facility]. ALLERGIES: Allergies to SULFA and AMLODIPINE. MEDICATIONS: Medications include the patient is currently on Tylenol, vitamin D3, Zestoretic, heparin, Motrin, Lactinex, Melatonin, Narcan, Zofran, Protonix. PHYSICAL EXAMINATION: On examination, blood pressure 139/67 with a pulse of 84, temperature 98.5. She is 98% on room air. General description is an elderly female lying in bed in no distress. No tachypnea or accessory muscle of respiration use. HEENT: Examination shows no pallor or scleral icterus. Oral mucous membranes is dry. No pharyngeal erythema. NECK: Trachea central. No thyromegaly. LUNGS: Unlabored breathing, clear to auscultation anteriorly. No wheeze or crackle. HEART: S1, S2. Regular rate and rhythm. No added sounds. ABDOMEN: Soft, no tenderness. No guarding. No rigidity. No organomegaly. EXTREMITIES: No edema of feet. SKIN EXAMINATION: No rash or mass palpable. NEUROLOGICAL: Patient is awake, alert, oriented x3. Mood and affect normal. LABS: Hemoglobin 13.8, white count 13.4. BUN of 45, creatinine is 2.35. Lactic acid down to 1.2. UA has been negative. Stool for C difficile negative. DIAGNOSTIC IMPRESSION AND PLAN: Patient admitted to the hospital with acute nausea, vomiting, and diarrhea in this patient who recently completed a course of antibiotics for her urinary tract infection. Concern is high for infectious colitis such as Clostridium difficile though initial stool for Clostridium difficile came back negative. PLAN: 1. We will check a stool for C difficile PCR. 2. Check a stool culture. 3. Empirically add Flagyl 500 mg p.o. q.8 hours. 4. IV fluid. 5. Will follow on clinical condition and culture to further adjust medication if needed. Thank you for this consultation. Will follow this patient along with you. MMODL / IJN: [id number] /
[2019-04-08 07:47] LABS: Basophils # (A) 0.1 k/uL (0-0.2); Basophils % (A) 1 %; Eosinophils # (A) 0.3 k/uL (0-0.7); Eosinophils % (A) 3 %; HCT 33.5 % (34.0-46.0); Lymphocytes # (A) 3.1 k/uL (1.0-4.8); Lymphocytes % (A) 32 %; MCH 28.3 pg (25.0-35.0); MCHC 31.8 g/dL (31.0-37.0); MCV 88.9 fL (80.0-100.0); Mean Platelet Volume 7.6; Monocytes # (A) 0.7 k/uL (0-1.0); Monocytes % (A) 7 %; Neutrophils # (A) 5.5 k/uL (1.3-7.7); Neutrophils % (A) 56 %; Platelet Count 358 k/uL (150-450); RBC 3.77 m/uL (3.80-5.40); RDW 14.1 % (11.5-15.5); WBC 9.8 k/uL (3.8-10.6)
[2019-04-08 07:54] LABS: HGB 10.7 gm/dL (11.4-16.0)
[2019-04-08 07:58] LABS: Albumin 3.5 g/dL (3.5-5.0); Calcium 8.8 mg/dL (8.4-10.2); Potassium 4.4 mmol/L (3.5-5.1); Total Bilirubin 0.7 mg/dL (0.2-1.3); Total Protein 5.9 g/dL (6.3-8.2)
[2019-04-08] MEDS: metroNIDAZOLE 500 MG TAB PO SCH ×3 (08:09→21:21)
[2019-04-08] MEDS: CHOLECALCIFEROL 1,000 UNIT TAB PO SCH ×2 (08:09→08:13)
[2019-04-08] MEDS: PANTOPRAZOLE 40 MG/10 ML VIAL IVP SCH (08:09)
[2019-04-08] MEDS: HEPARIN SODIUM,PORCINE 5,000 UNIT/ML 1 ML VIAL SQ SCH ×3 (08:09→21:22)
[2019-04-08] MEDS: LACTOBACILLUS ACIDOPH & BULGAR 1 EACH PACKET PO SCH (08:09)
[2019-04-08] MEDS: SODIUM CHLORIDE 0.9% 1,000 ML IV SCH (08:10)
[2019-04-08] MEDS ORDERED: LISINOPRIL-HCTZ 10-12.5 MG 1 EACH TAB PO SCH (09:00)
--- NOTE | 2019-04-08 09:22 | US ---
EXAMINATION TYPE: US abdomen complete DATE OF EXAM: 04/08/2019 COMPARISON: CT dated 03/12/2019 & US dated 02/09/2019 CLINICAL HISTORY: Nausea vomiting and diarrhea. Belching, nausea, UTI EXAM MEASUREMENTS: Liver Length: 12.3 cm Gallbladder Wall: 0.2 cm CBD: 0.4 cm Spleen: 8.2 cm Right Kidney: 9.2 x 4.0 x 4.5 cm Left Kidney: 10.1 x 4.0 x 3.8 cm Pt very gassy Pancreas: wnl, tail obscured by overlying bowel gas Liver: Somewhat coarse echotexture is again noted. Gallbladder: wnl Evidence for sonographic Melendez's sign: No CBD: wnl Spleen: wnl Right Kidney: wnl Left Kidney: wnl Upper IVC: wnl Abd Aorta: No evidence of AAA, atherosclerotic lang There is no ascites. The kidneys show normal cortical medullary differentiation. IMPRESSION: There may be underlying hepatic steatosis.
--- NOTE | 2019-04-08 11:34 | CONS ---
CONSULTATION REASON FOR CONSULT: Renal failure. HISTORY OF PRESENT ILLNESS: Patient is a 73-year-old female with history of hypertension, who was admitted to the hospital with complaints of nausea and vomiting. She felt extremely weak and dizzy, was not able to tolerate any oral intake. Patient also had diarrhea. She was recently treated for urinary tract infection and volume depletion early part of March. Serum creatinine was 2.35 mg/dL on admission, it is down to 1.23 now. Previous creatinine was 1.0 on 03/21/2019. No chest pain, shortness of breath, or obvious bleeding. PAST MEDICAL HISTORY: Hypertension, UTI. PAST SURGICAL HISTORY: Adenoidectomy, tonsillectomy, colonoscopy, laparotomy for PID, cataract surgery. SOCIAL HISTORY: Patient is a former smoker. No history of drug abuse or alcohol abuse. MEDICATIONS: Include vitamin D3, probiotic, Zestoretic, Flagyl. ALLERGIES: Include SULFA, NORVASC, which causes swelling. Sulfa causes rash and hives. REVIEW OF SYSTEMS: As per HPI. Other systems negative. On examination, patient are comfortable, awake, alert, oriented x3, not in any acute distress. Blood pressure was 132/83, heart rate 80 per minute. She is afebrile. Examination of the heart S1, S2. Examination of the lungs, bilateral breath sounds are heard. Abdomen is soft, non-tender. Examination of the lower extremities shows no evidence of edema. SUPERIOR COURT CLERK exam grossly intact. LABS: Show sodium 140, potassium 4.4, chloride 113, CO2 is 18, BUN 36, creatinine 1.23, hemoglobin 10.7 g/dL. ASSESSMENT: 1. Acute kidney injury, prerenal, currently improved with IV hydration. Continue with IV fluids. 2. Mild metabolic acidosis, non-gap secondary to diarrhea. Change IV fluids to Ringer lactate instead of normal saline. 3. History of urinary tract infection last admission. 4. History of hypertension, currently controlled. PLAN: Continue IV fluids. Change IV fluids to Ringer lactate given the underlying mild metabolic acidosis. Repeat labs in a.m. Patient is encouraged to maintain good oral fluid intake. MMODL / IJN: [id number] /
[2019-04-08] MEDS: LACTATED RINGERS 1,000 ML IV SCH ×2 (11:36→21:30)
--- NOTE | 2019-04-08 11:46 | P.PN ---
Subjective Progress Note Date: 04/08/19 Patient is a 73-year-old female seen today in the emergency department following transportation hospital by ambulance. Patient states that she began to feel ill yesterday on 04/06/2019 with nausea vomiting and diarrhea. Patient states she does not keep any food down or liquids. Patient was admitted to the hospital on acute kidney injury with dehydration and UTI. Patient was treated with antibiotics and discharged home on 03/17/2019. Patient followed up outpatient with Dr. Plaza and was seen in her office on 04/06/2019 with complaints of diarrhea. With recent antibiotic use patient was started on Flagyl prophylactically for C. diff. Patient states this morning she began to feel more ill and felt as if she was going to pass out. This is when patient called ambulance for assistance. Influenza testing was negative. Patient is found to have a creatinine of 2.35 BUN 45. Patient has elevated white count of 13.4 neutrophils, 10.5, lactic acid 2.7. C. diff was negative. Patient has known history of acute kidney injury, hypertension. Home medications resumed. Infectious disease and nephrology service is consulted.Patient denies being recently ill, being exposed to anybody with who has been ill, patient denies any fever or chills. Patient denies any urinary burning or frequency symptoms. Stool cultures pending amylase and lipase pending. 04/08/2019 patient had 1 small episode of emesis this morning after the ultrasound of the abdomen. She reports a more formed stool this morning as well. She's currently on oral Flagyl prophylactically for possible C. diff. The initial C. diff was negative. ID did order a C. diff for PCR but this appears to have been canceled. Stool cultures are pending. White count has normalized from 13.4-9.8. Lactic has come down from 2.7-1.2. Flu screening is negative. Abdominal ultrasound shows underlying hepatic steatosis. LFTs are normal. Lipase normal. Amylase minimally elevated at 127. Pro-calcitonin elevated at 0.22. Blood cultures are negative. Patient denies any abdominal pain. Denies any black stools or blood in her stool. Hemoglobin has dropped from 13.8-10.7. She has been seen by nephrology. They have discontinue the normal saline and place patient on lactated Ringer's at 100 mL an hour. Patient denies any burning with urination or difficulty urinating. Creatinine trending down from 2.35-1.23 Objective - Vital Signs Vital signs: Vital Signs Temp 98.3 F 04/08/19 05:18 Pulse 80 04/08/19 05:18 Resp 16 04/08/19 08:00 BP 132/83 04/08/19 05:18 Pulse Ox 100 04/08/19 05:18 Intake & Output 04/07/19 04/08/19 04/08/19 18:59 06:59 18:59 Intake Total 240 Balance 240 Weight 50.802 kg Intake: Oral 240 Other: Voiding Method Toilet Toilet Toilet # Voids 1 2 - Exam Head normocephalic Neck supple Lungs clear to auscultation bilaterally no wheezing or crackles Heart regular rate and rhythm S1-S2, no rub or gallop Abdomen is soft nontender nondistended positive bowel sounds no hepatosplenomegaly Extremities no edema Neuro alert and orientated to 3 - Labs CBC & Chem 7: 04/08/19 07:23 04/08/19 07:23 Labs: Abnormal Lab Results - Last 24 Hours (Table) 04/07/19 04/07/19 04/08/19 Range/Units 06:10 06:10 07:23 RBC 3.77 L (3.80-5.40) m/uL Hgb 10.7 L D (11.4-16.0) gm/dL Hct 33.5 L (34.0-46.0) % Chloride (98-107) mmol/L Carbon Dioxide (22-30) mmol/L BUN (7-17) mg/dL Creatinine (0.52-1.04) mg/dL Total Protein (6.3-8.2) g/dL Amylase 126 H (30-110) U/L Procalcitonin 0.22 H (0.02-0.09) ng/mL 04/08/19 Range/Units 07:23 RBC (3.80-5.40) m/uL Hgb (11.4-16.0) gm/dL Hct (34.0-46.0) % Chloride 113 H (98-107) mmol/L Carbon Dioxide 18 L (22-30) mmol/L BUN 36 H (7-17) mg/dL Creatinine 1.23 H (0.52-1.04) mg/dL Total Protein 5.9 L (6.3-8.2) g/dL Amylase (30-110) U/L Procalcitonin (0.02-0.09) ng/mL Microbiology - Last 24 Hours (Table) 04/07/19 08:00 Urine Culture - Preliminary Urine,Clean Catch 04/07/19 06:10 Blood Culture - Preliminary Blood No Growth after 24 hours Assessment and Plan Assessment: 1. Nausea, vomiting and diarrhea. Stool for C. diff negative. Influenza negative. Stool cultures pending. She is empirically on Flagyl 500 mg by mouth every 8 hours. Followed closely by ID. Patient had recent antibiotic use. It appears that the C. diff PCR was discontinued. Will await further ID teddy mmendations. Abdominal ultrasound showing underlying hepatic steatosis 2. Acute kidney injury secondary to dehydration and intravascular depletion. Nephrology following. Nephrology has placed patient on lactated Ringer's 100 mL an hour. Creatinine elevated at 2.35 and bun 45 on admission. Creatinine is down to 1.23. Continue to monitor. Discontinue the Zestoretic. Discontinue Motrin 3. Elevated lactic acid likely secondary to dehydration. Initial lactic acid 2. 7 repeat 1.2 4. Recent urinary tract infection with E. coli and hospitalization. Patient completed antibiotic treatment. Urine culture pending 5. History of essential hypertension: Resume 6. History of diverticulosis 7. Recent hospitalization with gastroenteritis and acute kidney injury 8. Anemia hemoglobin down to 10.7 no active signs of bleeding. Previous iron level 88 earlier in March. Continue to monitor. GI prophylaxis Protonix. DVT prophylaxis heparin I performed an examination of the patient and discussed their management with the physician Software Validation Engineer. I have reviewed the Physician Software Validation Engineer's notes and agree with the documented findings and plan of care
[2019-04-08] MEDS: MELATONIN 3 MG TABLET PO SCH (21:21)
--- NOTE | 2019-04-08 23:16 | PN ---
PROGRESS NOTE DATE OF SERVICE: 04/08/2019 REASON FOR FOLLOWUP: Acute gastroenteritis and diarrhea. INTERVAL HISTORY: The patient is currently afebrile. He has been breathing comfortably. The patient denies having any chest pain or shortness of breath or cough. No nausea, vomiting. The patient's diarrhea has improved. Did have soft bowel movement. PHYSICAL EXAMINATION: Blood pressure is 158/76, pulse 86, temperature 98.5. She is 99% on room air. General description is an elderly female lying in bed in no distress. Respiratory system: Unlabored breathing. Clear to auscultation anteriorly. Heart S1, S2. Regular rate and rhythm. ABDOMEN: Soft, no tenderness. LABS: Hemoglobin is 10.7, white count 9.8. BUN of 36, creatinine is 1.23. Blood culture has been negative. Stool for C diff so far negative. . DIAGNOSTIC IMPRESSION AND PLAN: Patient admitted to the hospital with diarrhea, concern for possible infectious etiology with antibiotic. Stool for C diff has been negative. patient responding to Flagyl to continue for short course. Monitor clinical course closely. Continue supportive care. MMODL / IJN: [id number] /
[2019-04-09 06:53] LABS: Basophils # (A) 0.1 k/uL (0-0.2); Basophils % (A) 1 %; Eosinophils # (A) 0.2 k/uL (0-0.7); Eosinophils % (A) 3 %; HCT 30.1 % (34.0-46.0); HGB 9.6 gm/dL (11.4-16.0); Lymphocytes % (A) 27 %; MCH 28.3 pg (25.0-35.0); MCV 88.4 fL (80.0-100.0); Mean Platelet Volume 8.2; Monocytes # (A) 0.5 k/uL (0-1.0); Monocytes % (A) 6 %; Neutrophils # (A) 4.4 k/uL (1.3-7.7); Neutrophils % (A) 61 %; Platelet Count 274 k/uL (150-450); RBC 3.41 m/uL (3.80-5.40); RDW 14.1 % (11.5-15.5); WBC 7.3 k/uL (3.8-10.6)
[2019-04-09 07:07] LABS: Albumin 3.1 g/dL (3.5-5.0); Potassium 3.9 mmol/L (3.5-5.1); Total Bilirubin 0.5 mg/dL (0.2-1.3); Total Protein 5.3 g/dL (6.3-8.2)
[2019-04-09] MEDS: LACTATED RINGERS 1,000 ML IV SCH ×2 (08:33→16:34)
[2019-04-09] MEDS: PANTOPRAZOLE 40 MG/10 ML VIAL IVP SCH (08:34)
[2019-04-09] MEDS: CHOLECALCIFEROL 1,000 UNIT TAB PO SCH (08:34)
[2019-04-09] MEDS: LACTOBACILLUS ACIDOPH & BULGAR 1 EACH PACKET PO SCH (08:34)
[2019-04-09] MEDS: metroNIDAZOLE 500 MG TAB PO SCH ×3 (08:34→21:56)
[2019-04-09] MEDS: HEPARIN SODIUM,PORCINE 5,000 UNIT/ML 1 ML VIAL SQ SCH ×3 (08:35→21:58)
--- NOTE | 2019-04-09 10:17 | PN ---
PROGRESS NOTE Patient is seen for followup for acute kidney injury. Renal function has improved significantly, creatinine down to 0.86 from 2.35 on initial admission. Patient is maintained on IV fluids. PHYSICAL EXAMINATION: On examination this morning, blood pressure was elevated at 170/81, heart rate 89 per minute. She is afebrile. EXAMINATION OF THE HEART: S1 and S2. EXAMINATION OF LUNGS: Bilateral breath sounds are heard. ABDOMEN: Soft, non-tender. Examination of lower extremities shows no evidence of edema. MOLD CLAMPER exam is grossly intact. LABS: Sodium 140, potassium 3.9, chloride 113. CO2 is 20, BUN 19, creatinine 0.86. ASSESSMENT: 1. Acute kidney injury, prerenal, currently resolved. Patient is maintained on IV fluids. 2. Mild metabolic acidosis secondary to diarrhea. IV fluids have been changed to Ringer Lactate and somewhat improved. 3. Volume depletion. 4. History of urinary tract infection last admission. PLAN: Patient is stable for discharge from nephrology standpoint. She is advised to avoid nephrotoxic medications, including NSAIDs. MMODL / IJN: [id number] /
--- NOTE | 2019-04-09 16:12 | P.PN ---
Subjective Progress Note Date: 04/09/19 Patient is a 73-year-old female seen today in the emergency department following transportation hospital by ambulance. Patient states that she began to feel ill yesterday on 04/06/2019 with nausea vomiting and diarrhea. Patient states she does not keep any food down or liquids. Patient was admitted to the hospital on acute kidney injury with dehydration and UTI. Patient was treated with antibiotics and discharged home on 03/17/2019. Patient followed up outpatient with Dr. Plaza and was seen in her office on 04/06/2019 with complaints of diarrhea. With recent antibiotic use patient was started on Flagyl prophylactically for C. diff. Patient states this morning she began to feel more ill and felt as if she was going to pass out. This is when patient called ambulance for assistance. Influenza testing was negative. Patient is found to have a creatinine of 2.35 BUN 45. Patient has elevated white count of 13.4 neutrophils, 10.5, lactic acid 2.7. C. diff was negative. Patient has known history of acute kidney injury, hypertension. Home medications resumed. Infectious disease and nephrology service is consulted.Patient denies being recently ill, being exposed to anybody with who has been ill, patient denies any fever or chills. Patient denies any urinary burning or frequency symptoms. Stool cultures pending amylase and lipase pending. 04/08/2019 patient had 1 small episode of emesis this morning after the ultrasound of the abdomen. She reports a more formed stool this morning as well. She's currently on oral Flagyl prophylactically for possible C. diff. The initial C. diff was negative. ID did order a C. diff for PCR but this appears to have been canceled. Stool cultures are pending. White count has normalized from 13.4-9.8. Lactic has come down from 2.7-1.2. Flu screening is negative. Abdominal ultrasound shows underlying hepatic steatosis. LFTs are normal. Lipase normal. Amylase minimally elevated at 127. Pro-calcitonin elevated at 0.22. Blood cultures are negative. Patient denies any abdominal pain. Denies any black stools or blood in her stool. Hemoglobin has dropped from 13.8-10.7. She has been seen by nephrology. They have discontinue the normal saline and place patient on lactated Ringer's at 100 mL an hour. Patient denies any burning with urination or difficulty urinating. Creatinine trending down from 2.35-1.23 On 04/09/2019 patient was seen and examined on the medical floor she is alert and oriented 3 in no apparent distress she is tolerating diet well there is no nausea or vomiting, patient however is still complaining of loose stools she had 5 bowel movements today, she denies any other complaints there is no fever or chills no headache or dizziness no chest pain no shortness of breath no cough no nausea or vomiting no abdominal pain no burning with urination no frequency or urgency and no hematuria Objective - Vital Signs Vital signs: Vital Signs Temp 98.6 F 04/09/19 14:13 Pulse 100 04/09/19 14:13 Resp 20 04/09/19 14:13 BP 162/85 04/09/19 14:13 Pulse Ox 100 04/09/19 14:13 Intake & Output 04/08/19 04/09/19 04/09/19 18:59 06:59 18:59 Intake Total 1340 Balance 1340 Intake: IV 800 Lactated Ringers 1,000 ml 800 @ 100 mls/hr IV .Q10H [facility] Rx#:[id number] Oral 540 Other: Voiding Method Toilet Toilet # Voids 3 3 2 # Bowel Movements 0 - Exam In general patient is alert and oriented 3 in no apparent distress Head normocephalic and atraumatic Neck supple no JVD no goiter Lungs clear to auscultation bilaterally no wheezing or crackles Heart regular rate and rhythm S1-S2, no rub or gallop Abdomen is soft nontender nondistended positive bowel sounds no hepatosplenomegaly Extremities no edema no cyanosis or clubbing Neuro no gross focal neurological deficit - Labs CBC & Chem 7: 04/09/19 06:16 04/09/19 06:16 Labs: Abnormal Lab Results - Last 24 Hours (Table) 04/09/19 04/09/19 Range/Units 06:16 06:16 RBC 3.41 L (3.80-5.40) m/uL Hgb 9.6 L (11.4-16.0) gm/dL Hct 30.1 L (34.0-46.0) % Chloride 113 H (98-107) mmol/L Carbon Dioxide 20 L (22-30) mmol/L BUN 19 H (7-17) mg/dL Total Protein 5.3 L (6.3-8.2) g/dL Albumin 3.1 L (3.5-5.0) g/dL Microbiology - Last 24 Hours (Table) 04/07/19 08:00 Urine Culture - Final Urine,Clean Catch 04/07/19 06:10 Blood Culture - Preliminary Blood No Growth after 48 hours Assessment and Plan Plan: 1. Nausea vomiting and diarrhea. Stool for C. diff negative. Influenza negative. Infectious disease will be consulted. Stool cultures ordered. Abdominal ultrasound ordered. Amylase lipase levels ordered 2. Acute kidney injury secondary to dehydration and intravascular depletion. Nephrology services consulted. Continue fluids. Creatinine elevated at 2.35 and bun 45 3. Elevated lactic acid likely secondary to dehydration. Initial lactic acid 2. 7 repeat 1.2 4. Recent urinary tract infection. Patient was recently discharged with urinary tract infection. Will order urine culture at this time 5. History of essential hypertension: Resume 6. History of diverticulosis Continue with current management possible discharge to home tomorrow if stable
--- NOTE | 2019-04-09 16:24 | PN ---
PROGRESS NOTE DATE OF SERVICE: 04/09/2019 REASON FOR FOLLOWUP: Diarrhea, possible infection. INTERVAL HISTORY: The patient is currently afebrile. The patient has been breathing comfortably. The patient denies having any chest pain. No shortness of breath or cough. No nausea or vomiting. No abdominal pain. Diarrhea has resolved. PHYSICAL EXAMINATION: Blood pressure 170/81 with a pulse of 89, temperature 98.1. She is 100% on room air. General description is an elderly female lying in bed in no distress. RESPIRATORY SYSTEM: Unlabored breathing. Clear to auscultation anteriorly. HEART: S1, S2. Regular rate and rhythm. ABDOMEN: Soft. No tenderness. LABS: Hemoglobin 9.6, white count 7.3. BUN of 19, creatinine 0.96. DIAGNOSTIC IMPRESSION AND PLAN: Patient admitted to hospital with diarrhea with recent exposure to antibiotic for a urinary tract infection with concern for possible infectious colitis. The patient's culture for C difficile has been negative. Overall improvement on Flagyl; to continue for about a week to finish her course of therapy. Advised to increase her probiotic and yogurt intake. Continue supportive care. MMODL / IJN: [id number] /
[2019-04-09] MEDS: MELATONIN 3 MG TABLET PO SCH (21:57)
[2019-04-09] MEDS: LISINOPRIL-HCTZ 10-12.5 MG 1 EACH TAB PO SCH (23:20)
[2019-04-09 23:32] VITALS: RESP 16
[2019-04-10 06:32] VITALS: BP 163/71; PULSE 81; TEMP 98
[2019-04-10 07:10] LABS: Basophils % (A) 1 %; Eosinophils # (A) 0.3 k/uL (0-0.7); Eosinophils % (A) 4 %; HCT 32.3 % (34.0-46.0); HGB 10.6 gm/dL (11.4-16.0); Lymphocytes # (A) 2.1 k/uL (1.0-4.8); Lymphocytes % (A) 29 %; MCH 28.2 pg (25.0-35.0); MCHC 32.7 g/dL (31.0-37.0); MCV 86.3 fL (80.0-100.0); Mean Platelet Volume 7.6; Monocytes # (A) 0.5 k/uL (0-1.0); Monocytes % (A) 6 %; Neutrophils # (A) 4.4 k/uL (1.3-7.7); Neutrophils % (A) 59 %; Platelet Count 294 k/uL (150-450); RBC 3.75 m/uL (3.80-5.40); RDW 13.8 % (11.5-15.5); WBC 7.4 k/uL (3.8-10.6)
[2019-04-10 07:22] LABS: Albumin 3.3 g/dL (3.5-5.0); Calcium 9.3 mg/dL (8.4-10.2); Potassium 3.6 mmol/L (3.5-5.1); Total Bilirubin 0.5 mg/dL (0.2-1.3); Total Protein 5.6 g/dL (6.3-8.2)
[2019-04-10] MEDS ORDERED: PANTOPRAZOLE 40 MG TABLET PO SCH (07:30)
[2019-04-10] MEDS: HEPARIN SODIUM,PORCINE 5,000 UNIT/ML 1 ML VIAL SQ SCH (08:20)
[2019-04-10] MEDS: metroNIDAZOLE 500 MG TAB PO SCH (08:20)
[2019-04-10] MEDS: LACTOBACILLUS ACIDOPH & BULGAR 1 EACH PACKET PO SCH (08:20)
[2019-04-10] MEDS: CHOLECALCIFEROL 1,000 UNIT TAB PO SCH (08:20)
[2019-04-10] MEDS: LISINOPRIL-HCTZ 10-12.5 MG 1 EACH TAB PO SCH (08:20)
--- NOTE | 2019-04-10 10:48 | P.DS ---
Providers Date of admission: 04/08/19 15:42 Expected date of discharge: 04/10/19 Attending physician: Richard Jones Consults: 04/07/19 12:03 Consult Physician Routine Consulting Provider: Lisy Bowens Consult Reason/Comments: Acute kidney injury Do you want consulting provider notified?: Yes 04/07/19 12:04 Consult Physician Routine Consulting Provider: Rodger Chávez Consult Reason/Comments: Diarrhea Do you want consulting provider notified?: Yes Primary care physician: Debbie Plaza Hospital Course: Diagnosis on discharge: 1. Nausea vomiting and diarrhea. Stool for C. diff negative. Influenza negative. Infectious disease will be consulted. Stool cultures ordered. Abdominal ultrasound ordered. Amylase lipase levels ordered 2. Acute kidney injury secondary to dehydration and intravascular depletion. Nephrology services consulted. Continue fluids. Creatinine elevated at 2.35 and bun 45 3. Elevated lactic acid likely secondary to dehydration. Initial lactic acid 2. 7 repeat 1.2 4. Recent urinary tract infection. Patient was recently discharged with urinary tract infection. Will order urine culture at this time 5. History of essential hypertension: Resume 6. History of diverticulosis Hospital course: Patient is a 73-year-old female seen today in the emergency department following transportation hospital by ambulance. Patient states that she began to feel ill yesterday on 04/06/2019 with nausea vomiting and diarrhea. Patient states she does not keep any food down or liquids. Patient was admitted to the hospital on acute kidney injury with dehydration and UTI. Patient was treated with antibiotics and discharged home on 03/17/2019. Patient followed up outpatient with Dr. Plaza and was seen in her office on 04/06/2019 with complaints of diarrhea. With recent antibiotic use patient was started on Flagyl prophylactically for C. diff. Patient states this morning she began to feel more ill and felt as if she was going to pass out. This is when patient called ambulance for assistance. Influenza testing was negative. Patient is found to have a creatinine of 2.35 BUN 45. Patient has elevated white count of 13.4 neutrophils, 10.5, lactic acid 2.7. C. diff was negative. Patient has known history of acute kidney injury, hypertension. Home medications resumed. Infectious disease and nephrology service is consulted.Patient denies being recently ill, being exposed to anybody with who has been ill, patient denies any fever or chills. Patient denies any urinary burning or frequency symptoms. Stool cultures pending amylase and lipase pending. 04/08/2019 patient had 1 small episode of emesis this morning after the ultrasound of the abdomen. She reports a more formed stool this morning as well. She's currently on oral Flagyl prophylactically for possible C. diff. The initial C. diff was negative. ID did order a C. diff for PCR but this appears to have been canceled. Stool cultures are pending. White count has normalized from 13.4-9.8. Lactic has come down from 2.7-1.2. Flu screening is negative. Abdominal ultrasound shows underlying hepatic steatosis. LFTs are normal. Lipase normal. Amylase minimally elevated at 127. Pro-calcitonin elevated at 0.22. Blood cultures are negative. Patient denies any abdominal p ain. Denies any black stools or blood in her stool. Hemoglobin has dropped from 13.8-10.7. She has been seen by nephrology. They have discontinue the normal saline and place patient on lactated Ringer's at 100 mL an hour. Patient denies any burning with urination or difficulty urinating. Creatinine trending down from 2.35-1.23 On 04/09/2019 patient was seen and examined on the medical floor she is alert and oriented 3 in no apparent distress she is tolerating diet well there is no nausea or vomiting, patient however is still complaining of loose stools she had 5 bowel movements today, she denies any other complaints there is no fever or chills no headache or dizziness no chest pain no shortness of breath no cough no nausea or vomiting no abdominal pain no burning with urination no frequency or urgency and no hematuria On 04/10/2019 patient was seen and examined on the medical floor, she is doing better diarrhea has stopped she had 3 small formed bowel movement this morning there is no nausea or vomiting there is no abdominal pain there is no fever patient wants to go home today, she will be discharged this morning, she has a previous prescription of Flagyl by mouth that she will continue, she will continue was acidophilus she will follow-up with her primary care physician Dr. Plaza in 3-4 days. Patient was instructed to return to the hospital if having severe diarrhea Patient Condition at Discharge: Serious Plan - Discharge Summary Discharge Rx Participant: No New Discharge Prescriptions: Continue Cholecalciferol [Vitamin D3 (25 Mcg = 1000 Iu)] 5,000 unit PO DAILY metroNIDAZOLE [Flagyl] 500 mg PO TID Lisinopril-Hctz 10-12.5 mg [Zestoretic 10-12.5] 1 tab PO DAILY L.acidoph,Paracasei, B.lactis [Probiotic] 1 cap PO DAILY Discharge Medication List Cholecalciferol [Vitamin D3 (25 Mcg = 1000 Iu)] 5,000 unit PO DAILY 02/07/19 [History] L.acidoph,Paracasei, B.lactis [Probiotic] 1 cap PO DAILY 04/07/19 [History] Lisinopril-Hctz 10-12.5 mg [Zestoretic 10-12.5] 1 tab PO DAILY 04/07/19 [History] metroNIDAZOLE [Flagyl] 500 mg PO TID 04/07/19 [History] Follow up Appointment(s)/Referral(s): Debbie Plaza MD [Primary Care Provider] - 1-2 days Patient Instructions/Handouts: Acute Kidney Injury (DC), Acute Diarrhea (GEN)
--- NOTE | 2019-04-10 11:29 | PN ---
PROGRESS NOTE Patient is seen for followup for acute kidney injury. She is currently doing well. The patient will be discharged today. PHYSICAL EXAMINATION: On examination, blood pressure is 163/71, heart rate 81 per minute. She is afebrile. Examination of the heart S1, S2. Examination of the lungs, bilateral breath sounds are heard. ABDOMEN: Soft, nontender. Examination of lower extremities shows no evidence of edema. EMERGENCY VETERINARY TECHNICIAN exam grossly intact. LABS: Sodium of 139, potassium 3.6, BUN 14, creatinine 0.8. ASSESSMENT: 1. Acute kidney injury prerenal currently resolved. 2. Hypertension. The patient has been started on her home medications. She is off IV fluids. 3. Nausea, vomiting and diarrhea, currently resolved. 4. Mild metabolic acidosis secondary to diarrhea, now resolved. PLAN: Patient can be discharged from nephrology standpoint. Follow up with PCP as outpatient. May continue with EMBER inhibitors. Avoid prolonged use of NSAIDs. MMODL / IJN: [id number] /
== END 2019-04-10 13:10 | disposition home or self-care (01) | DRG 683 ==
LOC: EC 05:25 → 6NMEDSUR 07:20 → OBSVTOIN 04-08 15:42
PROVIDERS: ADMIT Internal Medicine; ATTEND Internal Medicine
DX: N17.9 Acute kidney failure, unspecified (principal); E87.2 Acidosis; A09 Infectious gastroenteritis and colitis, unspecified; K76.0 Fatty (change of) liver, not elsewhere classified; E86.0 Dehydration; I10 Essential (primary) hypertension; K57.90 Diverticulosis of intestine, part unspecified, without perforation or abscess without bleeding; D64.9 Anemia, unspecified; Z79.899 Other long term (current) drug therapy; Z87.440 Personal history of urinary (tract) infections; Z87.2 Personal history of diseases of the skin and subcutaneous tissue; Z98.42 Cataract extraction status, left eye; Z98.41 Cataract extraction status, right eye; Z96.1 Presence of intraocular lens; Z98.890 Other specified postprocedural states; Z87.891 Personal history of nicotine dependence; Z87.42 Personal history of other diseases of the female genital tract; Z88.2 Allergy status to sulfonamides; Z88.8 Allergy status to other drugs, medicaments and biological substances; Z80.8 Family history of malignant neoplasm of other organs or systems
CPT/HCPCS: 36415; 76700; 80053; 81001; 82150; 83605; 83690; 84145; 85025; 85610; 85730; 87040; 87086; 87324; 87502; 93005; 94760; 96361; 96374; 99285

== ENCOUNTER 2019-04-11 05:11 | Emergency (ER) | payer MEDICARE ==
--- NOTE | 2019-04-11 06:23 | ED ---
Weakness HPI - General Chief complaint: Weakness Stated complaint: Weakness Time Seen by Provider: 04/11/19 05:27 Source: patient Mode of arrival: ambulatory Limitations: no limitations - History of Present Illness Initial comments: Phong is a 73-year-old female recently admitted to the hospital for nausea vomiting diarrhea, with recent admission several months of February and March for dehydration and acute kidney injury. Patient reports that during her previous admission she was advised that she had significant kidney damage and if it became any worse she would require dialysis. Patient reports that she was admitted last week for nausea vomiting and diarrhea which time her kidney function wasn't as bad as it had been previously, patient reports she improved throughout her hospital stay and was discharged earlier in the day. Patient states that she was home for a few hours and during the night became nauseated, she had no antiemetics at home and was concerned that if she became dehydrated her kidneys would worsen which prompted her return to the emergency department. - Related Data Home Medications Medication Instructions Recorded Confirmed Cholecalciferol [Vitamin D3 (25 5,000 unit PO DAILY 02/07/19 04/07/19 Mcg = 1000 Iu)] L.acidoph,Paracasei, B.lactis 1 cap PO DAILY 04/07/19 04/07/19 [Probiotic] Lisinopril-Hctz 10-12.5 mg 1 tab PO DAILY 04/07/19 04/07/19 [Zestoretic 10-12.5] metroNIDAZOLE [Flagyl] 500 mg PO TID 04/07/19 04/07/19 Allergies Allergy/AdvReac Type Severity Reaction Status Date / Time Sulfa (Sulfonamide Allergy Rash/Hives Verified 04/11/19 05:19 Antibiotics) amlodipine [From Norvasc] AdvReac Swelling Verified 04/11/19 05:19 Review of Systems ROS Statement: Those systems with pertinent positive or pertinent negative responses have been documented in the HPI. ROS Other: All systems not noted in ROS Statement are negative. Past Medical History Past Medical History: Hypertension Additional Past Medical History / Comment(s): Pt recently admitted to [facility] on 03/13/19 with N/V/D, gastroenteritis, UTI, acute kidney injury, hypokalemia, dermatitis R external ear. Other hx: Diverticulosis, fungal infection feet 2017 History of Any Multi-Drug Resistant Organisms: None Reported Past Surgical History: Adenoidectomy, Tonsillectomy Additional Past Surgical History / Comment(s): laparotomy d/t PID 1990, colonoscopy in 2016, bilateral cataract removals/lens implants. Past Anesthesia/Blood Transfusion Reactions: No Reported Reaction Additional Past Anesthesia/Blood Transfusion Reaction / Comment(s): Pt believes she received blood in the past without reaction. Pt has clausterphobia. Past Psychological History: No Psychological Hx Reported Smoking Status: Former smoker Past Alcohol Use History: None Reported Past Drug Use History: None Reported - Past Family History Mother Family Medical History: Cancer Additional Family Medical History / Comment(s): brain stem cancerous tumor Father Family Medical History: No Reported History Additional Family Medical History / Comment(s): Father was healthy and lived to be 99.5 General Exam - General Exam Comments Initial Comments: Physical Exam GENERAL: Patient is well-developed and well-nourished. Patient is nontoxic and well-hydrated and is in no distress. HENT: Normocephalic, Atraumatic. EYES: PERRL, EOMI PULMONARY: Unlabored respirations. CARDIOVASCULAR: RRR Warm and well perfused extremities ABDOMEN: Non-distended SKIN: No rashes or bruising : Deferred NEUROLOGIC: Alert and oriented Normal speech Normal gait MUSCULOSKELETAL: Moving all extremities with no apparent injury PSYCHIATRIC: No SI/HI Limitations: no limitations Course Vital Signs 04/11/19 04/11/19 05:16 07:13 Temperature 97.9 F 98.2 F Pulse Rate 81 82 Respiratory 20 18 Rate Blood Pressure 151/86 172/77 O2 Sat by Pulse 99 100 Oximetry EKG Findings - EKG Comments: EKG Findings:: EKG is obtained due to complaint of generalized weakness, EKG is obtained at 5:26 AM, rate is 86 rhythm sinus normal axis, normal intervals, NJ 132, QRS 90, QTc is [address] elevations or depressions no evidence of acute ischemia or infarction. Medical Decision Making - Medical Decision Making The patient was seen and evaluated history was obtained from patient and review of medical record. I admitted this patient last week and him familiar with her medical history. Patient expresses significant anxiety that if she is not drinking plenty of fluids she's can end up with kidney failure, patient had brief episode of nausea which prompted her return to the emergency department. She treated with anti- emetics, repeat labs are unremarkable kidney function continues to improve. Results were discussed patient expresses relief and is comfortable with plan for discharge home. Patient will be discharged home with a Zofran starter pack and advised follow-up with her primary care physician. - Lab Data Result diagrams: 04/11/19 06:06 04/11/19 06:06 Lab Results 04/11/19 04/11/19 04/11/19 Range/Units 06:06 06:06 06:25 WBC 9.3 (3.8-10.6) k/uL RBC 3.88 (3.80-5.40) m/uL Hgb 11.3 L (11.4-16.0) gm/dL Hct 33.1 L (34.0-46.0) % MCV 85.2 (80.0-100.0) fL MCH 29.1 (25.0-35.0) pg MCHC 34.1 (31.0-37.0) g/dL RDW 14.1 (11.5-15.5) % Plt Count 316 (150-450) k/uL Sodium 139 (137-145) mmol/L Potassium 3.1 L (3.5-5.1) mmol/L Chloride 104 (98-107) mmol/L Carbon Dioxide 22 (22-30) mmol/L Anion Gap 13 mmol/L BUN 15 (7-17) mg/dL Creatinine 0.95 (0.52-1.04) mg/dL Est GFR (CKD-EPI)AfAm 70 (>60 ml/min/1.73 sqM) Est GFR (CKD-EPI)NonAf 60 (>60 ml/min/1.73 sqM) Glucose 119 H (74-99) mg/dL Calcium 9.9 (8.4-10.2) mg/dL Magnesium 1.5 L (1.6-2.3) mg/dL Total Bilirubin 0.7 (0.2-1.3) mg/dL AST 25 (14-36) U/L ALT 15 (4-34) U/L Alkaline Phosphatase 59 (38-126) U/L Total Protein 6.5 (6.3-8.2) g/dL Albumin 4.1 (3.5-5.0) g/dL Urine Color Light Red Urine Appearance Clear (Clear) Urine pH 6.0 (5.0-8.0) Ur Specific [place] 1.015 (1.001-1.035) Urine Protein Trace H (Negative) Urine Glucose (UA) Negative (Negative) Urine Ketones 1+ H (Negative) Urine Blood Negative (Negative) Urine Nitrite Negative (Negative) Urine Bilirubin Negative (Negative) Urine Urobilinogen <2.0 (<2.0) mg/dL Ur Leukocyte Esterase Small H (Negative) Urine RBC 1 (0-5) /hpf Urine WBC 3 (0-5) /hpf Ur Squamous Epith Cells 1 (0-4) /hpf Hyaline Casts 64 H (0-2) /lpf Granular Casts 72 (0) /lpf Urine Mucus Rare H (None) /hpf Disposition Clinical Impression: Nausea, Hypokalemia Disposition: HOME SELF-CARE Condition: Stable Instructions (If sedation given, give patient instructions): Acute Nausea and Vomiting (ED) Is patient prescribed a controlled substance at d/c from ED?: No Referrals: Debbie Plaza MD [Primary Care Provider] - 1-2 days
[2019-04-11 06:31] LABS: HCT 33.1 % (34.0-46.0); HGB 11.3 gm/dL (11.4-16.0); MCH 29.1 pg (25.0-35.0); MCHC 34.1 g/dL (31.0-37.0); MCV 85.2 fL (80.0-100.0); Mean Platelet Volume 7.7; Platelet Count 316 k/uL (150-450); RBC 3.88 m/uL (3.80-5.40); RDW 14.1 % (11.5-15.5); WBC 9.3 k/uL (3.8-10.6)
[2019-04-11 06:40] LABS: Appearance,Urine Clear (Clear); Bilirubin,Urine Negative (Negative); Blood,Urine Negative (Negative); Color,Urine Light Red; Glucose,Urine (UA) Negative (Negative); Granular Casts,Urine 72 /lpf (0); Hyaline Casts,Urine 64 /lpf (0-2); Ketones,Urine 1+ (Negative); Leukocyte Esterase,Urine Small (Negative); Mucus,Urine Rare /hpf; Nitrite,Urine Negative (Negative); Protein,Urine Trace (Negative); RBC,Urine 1 /hpf (0-5); Specific Gravity,Urine 1.015 (1.001-1.035); Squamous Epithelial Cell,Urine 1 /hpf (0-4); Urobilinogen,Urine <2.0 mg/dL (<2.0); WBC,Urine 3 /hpf (0-5)
[2019-04-11 06:41] LABS: Albumin 4.1 g/dL (3.5-5.0); Calcium 9.9 mg/dL (8.4-10.2); Magnesium 1.5 mg/dL (1.6-2.3); Potassium 3.1 mmol/L (3.5-5.1); Total Bilirubin 0.7 mg/dL (0.2-1.3); Total Protein 6.5 g/dL (6.3-8.2)
[2019-04-11] MEDS ORDERED: POTASSIUM CHLORIDE ER 20 MEQ TAB.ER PO STA (06:53)
[2019-04-11] MEDS ORDERED: ONDANSETRON 4 MG ODT STARTER PACK 2 TAB BTL PO STA (06:55)
[2019-04-11 07:14] VITALS: BP 172/77; PULSE 82; RESP 18; TEMP 98.2
== END 2019-04-11 07:14 | disposition home or self-care (01) ==
LOC: EC 05:11
DX: E87.6 Hypokalemia (principal); R11.0 Nausea; F41.8 Other specified anxiety disorders; I10 Essential (primary) hypertension; Z87.891 Personal history of nicotine dependence; Z88.2 Allergy status to sulfonamides; Z88.8 Allergy status to other drugs, medicaments and biological substances; Z79.899 Other long term (current) drug therapy; Z86.19 Personal history of other infectious and parasitic diseases
CPT/HCPCS: 36415; 93005; 80053; 83735; 85027; 81001; 99285; S0119